=== PATIENT | female | born 1985 | race Caucasian/White ===

== ENCOUNTER 2017-11-19 09:57 | Emergency (ER) | payer MEDICAID, SELFPAY ==
[2017-11-19 10:12] VITALS: BP 118/80; PULSE 74; RESP 16; TEMP 36.7; O2SAT 100
--- NOTE | 2017-11-19 10:59 | DI.REPORT_ITS ---
SYMPTOM/DIAGNOSIS: PUNCHED REFRIGERATOR LEFT HAND: Comparison is made with 16 July 2017. No fracture or dislocation is seen. IMPRESSION: Negative left hand.
--- NOTE | 2017-11-19 11:00 | ED.GENADUL ---
Disposition Clinical Impression: Hand contusion Disposition: HOME Condition: Fair Instructions: Contusion in Adults (ED) Additional Instructions: Encourage rest, ice, elevation. Tylenol and/or ibuprofen as needed for discomfort. Keep Nolberto wrap on to help with discomfort and swelling. Stop punching inanimate objects. Monitor wounds for signs of infection including redness, warmth, drainage, fever/chills, increased pain. If these arise please seek care urgently once again. Please follow-up with primary care in 1-2 weeks if symptoms persist. Referrals: Smitha Bush NP [Primary Care Provider] - Medical Decision Making - Radiology Data Radiology results: report reviewed Radiology reviewed patient left hand x-rays. I advised no acute abnormality of the bones or joints, soft tissues are normal. - Medical Decision Making Patient presents today with chief complaint of left hand pain after striking a refrigerator ?10 yesterday. Patient has ecchymosis and swelling over the dorsal aspect of the left hand. Ecchymosis and pain is worse over the ulnar side of the hand. No deformity is noted. She has a superficial abrasion appears to be healing well no signs of infection in between the knuckles of the third and fourth digits. She has limited range of motion of her digits secondary to pain. Sensation is intact. Last tetanus was in 2012. Patient will be given Tylenol to help with discomfort will obtain radiographic images to evaluate for possible fracture. X-ray without significant abnormality. Discussed findings with the patient. Advised that she is left hand contusion. Advised her against striking inanimate objects. Patient will be fitted with an Nolberto wrap to help with swelling and discomfort. Encourage rest, ice, elevation. Advised Tylenol and/or ibuprofen as needed for discomfort. We discussed signs and symptoms of infection when to seek care urgently once again. Advise follow-up with primary care if pain persists over the next 1-2 weeks. We discussed activities that she should avoid that may increase her discomfort. All of her questions and concerns were addressed and she is in agreement with this plan. History of Present Illness - General Chief complaint: Orthopedic Stated complaint: LEFT HAND INJURY Time Seen by Provider: 11/19/17 10:59 Source: patient, family, RN notes reviewed Mode of arrival: ambulatory Limitations: no limitations - History of Present Illness Initial comments: Patient is a 32-year-old [id number] female presenting today with chief complaint of left hand pain. Patient reports that yesterday she became angry and punched a refrigerator ?2 with the affected hand. Since that time his had swelling, ecchymosis and severe pain. States took ibuprofen prior to arrival. Suffered superficial abrasions as well. States the pain radiates into the digits. No pain in the wrist. Denies other injury the time the incident. Patient has been seen by myself historically for very similar injury. States the pain is maximal over the fifth metacarpal. She denies any altered sensation. Last tetanus was in 2012. - Related Data Norelgestromin/Ethin.estradiol [Xulane Patch] 1 each TD 1 weekly. hb 11/07/16 Mupirocin [MUPIROCIN 2%] 22 gm TP DAILY #1 gm 09/18/17 Ibuprofen [Ibu-200] 400 mg PO PRN PRN 11/19/17 Allergies Allergy/AdvReac Type Severity Reaction Status Date / Time Penicillins Allergy Unknown Skin Rash Unverified 11/19/17 10:14 amoxicillin [Amoxicillin] Allergy Skin Rash Unverified 11/19/17 10:14 Iodinated Contrast- Oral and Allergy Hives Unverified 11/19/17 10:14 IV Dye benzonatate AdvReac Intermediate Nausea and Unverified 11/19/17 10:14 vomiting Review of Systems Constitutional: no symptoms reported. denies: chills, fever, malaise Respiratory: no symptoms reported Musculoskeletal: as per HPI Skin: as per HPI Neurological: as per HPI Past Medical History - Past Medical History Medical history: seizures Surgical history: no surgical history Psychiatric history: attention deficit - Social History Alcohol use: occasionally Drug use: none General Exam - General Limitations: no limitations General appearance: alert, in no apparent distress - Head Head exam: Present: atraumatic - Eye Eye exam: Present: normal apperance - Respiratory Respiratory exam: Absent: respiratory distress - Extremities Exam Extremities exam: Present: tenderness, normal capillary refill, joint swelling. Absent: normal inspection (Exam the patient's left upper extremity is significant for ecchymosis along the dorsal aspect of the hand. It extends from the third metacarpal over towards the lateral aspect of the hand encircling the fifth metacarpal. She superficial abrasions between the knuckles of the third and fourth digits. Ecchymosis does extend over the MCP joints of the third, fourth and fifth digits. Sensation is intact. Range of motion is very limited in the finger secondary to pain. She is full range of motion of the wrist with no palpation of the wrist. No deformity is palpated.), full ROM - Neurological Exam Neurological exam: Present: alert, normal gait. Absent: motor sensory deficit - Psychiatric Psychiatric exam: Present: normal affect, normal mood - Skin Skin exam: Absent: intact, normal color (As above) Course Vital Signs - 24 hr 11/19/17 10:12 Temperature 36.7 C Pulse 74 Respiratory 16 Rate Blood Pressure 118/80 Pulse Oximetry 100
[2017-11-19] MEDS: Acetaminophen 500 MG TAB 1000 MG PO (11:20)
--- NOTE | 2017-11-19 13:06 | DI.VRAD_ITS ---
EXAM: XR Left Hand Complete, 3 or more Views EXAM DATE/TIME: 11/19/2017 11:00 AM CLINICAL HISTORY: 32 years old, female; Pain; Hand; Left; Patient HX: Per PT: Punched refrigerator 2x TECHNIQUE: XR Left hand 3 or more views. COMPARISON: CR - LEFT HAND COMPLETE 2017-07-16 16:04 FINDINGS: Bones/joints: Normal. Soft tissues: Normal. IMPRESSION: No acute findings. Dictated and Authenticated by: Harpreet De Paz MD. Ordering:DALLIN MARINELLI MD
== END 2017-11-19 13:22 | disposition home or self-care (01) ==
LOC: ER 03-26 09:45
PROVIDERS: Emergency Provider Physician Assistant; PCP Nurse Practitioner Family
DX: S60.222A Contusion of left hand, initial encounter (principal); W22.09XA Striking against other stationary object, initial encounter
CPT/HCPCS: 99283; 73130; 99282

== ENCOUNTER 2018-03-26 09:48 | Outpatient (REF) | payer MEDICAID, SELFPAY ==
--- NOTE | 2018-03-26 09:15 | PAPFT_PTH ---
PATIENT: Awa Shrestha LOC: [facility] U#:[id number] AGE/SX: 32/F ROOM: RE03/26/[address]: MARIE Baig : 1985 BED: DIS: 03/26/2018 SPEC #: [id number] RECD: 03/26/18 18:17 STATUS: YOLANDA RELiz #: [id number] MARTIN: 03/26/18 09:[address]: Smitha Bush DEPT: [facility] Cytology RECD BY: Deisi Austin Tissues: 1 - CX/ENDOCX FOR PAP SMEARS Procedures: PAP THIN PREP/UVM Screening HPV DNA PROBE Comments: [id number] (CHLAMYDIA/GC)
[2018-03-27 13:16] LABS: Chlamydia Result Negative; GC Result Negative; Specimen Description SEE COMMENTS
== END 2018-03-26 10:08 ==
LOC: LBN 09:48
PROVIDERS: PCP Nurse Practitioner Family; Visit Provider Nurse Practitioner Family
DX: Z12.4 Encounter for screening for malignant neoplasm of cervix (principal); Z11.51 Encounter for screening for human papillomavirus (HPV); Z11.3 Encounter for screening for infections with a predominantly sexual mode of transmission
CPT/HCPCS: 87491; 87591; 88142; 87624

== ENCOUNTER 2018-04-04 09:36 | Emergency (ER) | payer MEDICAID, SELFPAY ==
[2018-04-04 09:45] VITALS: BP 133/87; PULSE 93; RESP 16; TEMP 36.7; O2SAT 99
--- NOTE | 2018-04-04 10:00 | W.ED.GENAD ---
Discharge Plan Disposition Patient Disposition: HOME Condition: Improving Discharge Details Chief Complaint: GenMedical Clinical Impression: Exudative pharyngitis Primary Care Provider: Smitha Bush ED Provider: Fabián Contreras Home Meds and New Rx's Prescriptions: New prednisone 20 mg tablet 20 mg PO DAILY 3 Days Qty: 3 RF: 0 azithromycin 250 mg tablet See Rx Instructions .ROUTE .COMPLEX Qty: 6 RF: 0 No Action Xulane 150-35 mcg/24 hr patch weekly 1 patch Transdermal As directed Qty: 3 RF: 4 Discharge Instructions Instructions: Pharyngitis (ED) Additional Instructions: Small, frequent sips of fluids. Tylenol and/or ibuprofen as needed for pain. May continue [id number] cough drops. Please take prednisone and azithromycin as prescribed beginning today. Return to the emergency department for any acute concerns Medical Decision Making 32-year-old female presents primarily complaining of sore throat over 2 days time with associated cough congestion. She is a smoker with a penicillin allergy. Vital signs are stable and her exam is consistent with an exudative pharyngitis. With her history we will treat with a course of azithromycin as well as 3 days of prednisone for anti-inflammatory properties. She understands return precautions to the ED and is stable for discharge. HPI General Mode of arrival: ambulatory. Date/Time Provider Initiated Documentation: 04/04/18 09:52. Limitations to Documentation: no limitations. Information obtained by: patient. History of Present Illness 32 year old F presents to the emergency department with the chief complaint of Sore throat and cough, fever, described as moderate, Quality is described as aching, and is localized to the mouth. Patient reports no radiation. Patient started experiencing this hour(s) and it has been constant. No relieving factors improve symptom(s), and other things that improve symptom(s), (Somewhat helped with cough drops) No exacerbating factors reported . Patient notes cough and fever/chills. Patient did receive the following treatments prior to arrival, other ([id number]) Related Data Home Medications Medication Instructions Recorded Confirmed norelgestromin 150 mcg-e.estradiol 1 patch TRANSDERMAL As directed #3 02/20/18 04/04/18 35 mcg/24 hr weekly transderm patch each azithromycin See Rx Instructions .ROUTE 04/04/18 .COMPLEX #6 tab prednisone 20 mg PO DAILY 3 Days #3 tab 04/04/18 Previous Rx's Medication Instructions Recorded norelgestromin 150 mcg-e.estradiol 1 patch TRANSDERMAL As directed #3 02/20/18 35 mcg/24 hr weekly transderm patch each azithromycin See Rx Instructions .ROUTE 04/04/18 .COMPLEX #6 tab prednisone 20 mg PO DAILY 3 Days #3 tab 04/04/18 Allergies Allergy/AdvReac Type Severity Reaction Status Date / Time Penicillins Allergy Unknown Skin Rash Unverified 03/26/18 09:00 amoxicillin [Amoxicillin] Allergy Skin Rash Unverified 03/26/18 09:00 Iodinated Contrast- Oral and Allergy Hives Unverified 03/26/18 09:00 IV Dye benzonatate AdvReac Intermediate Nausea and Unverified 03/26/18 09:00 vomiting General Stated Complaint: GenMedical LAYNE: 4 Review of Systems Review of Systems 6 systems reviewed and otherwise negative ON LICENSE OF [facility] Medical History Attention deficit hyperactivity disorder, combined type (Inactive 06/01/12) Febrile seizures (Inactive) Surgical History Teeth extractions Family History Mother Diabetes Essential hypertension Father Emphysema lung Sister Epilepsy Sister No problems noted. Sister No problems noted. Sister No problems noted. Brother No problems noted. Brother No problems noted. Grandfather No problems noted. Grandfather No problems noted. Grandmother No problems noted. Grandmother No problems noted. Daughter No problems noted. Social History Smoking/Tobacco Use Status: Current every day History History 2 Para 1 Hx # Term Pregnancies Multiple births Hx # Pregnancies Ectopic pregnancies AB induced 1 Hx Number of Living Children 1 AB spontaneous Exam Narrative Exam Narrative: GEN: awake, alert, oriented 3. Pleasant, well groomed, interactive. HEAD: Normocephalic, atraumatic ENT: Mucous membranes moist, oropharynx with beefy red tonsillar erythema and overlying white exudate, no asymmetry and the uvula is midline, External ear exam unremarkable. Tympanic membranes silva/clear bilaterally. EYES: PERRL, EOMI NECK: Full ROM, no MARY, no menigismus CHEST/RESP: Nontender, clear to auscultation bilateral, no wheeze/rhonchi/rales. Cough noted CARDIOVASCULAR: RRR, no murmur, rub alex. 2+ Rad pulse bilateral ABDOMEN: Soft, nontender, no mass. +Bowel sounds EXT: Full ROM, no edema, no rash Neuro: Grossly normal neurologic exam, conversant, interactive. Psych: Speech fluent, thoughts congruent, affect normal Course Vital Signs Temperature 36.7 C 04/04/18 09:45 Pulse 93 H 04/04/18 09:45 Respiratory Rate 16 04/04/18 09:45 Blood Pressure 133/87 04/04/18 09:45 Pulse Oximetry 99 04/04/18 09:45 Temperature 36.7 C 04/04/18 09:45 Temperature Source Temporal Artery Scan 04/04/18 09:45 Pulse 93 H 04/04/18 09:45 Respiratory Rate 16 04/04/18 09:45 Respiratory Effort 04/04/18 09:48 Blood Pressure 133/87 04/04/18 09:45 Blood Pressure Position Sitting 04/04/18 09:45 Pulse Oximetry 99 04/04/18 09:45 Oxygen Delivery Method Room Air 04/04/18 09:45 Oxygen Flow Rate 0 04/04/18 09:45 Pain Level 9 04/04/18 09:45
--- NOTE | 2018-04-04 10:03 | ED.GENADUL_ITS ---
Discharge Plan Disposition Patient Disposition: HOME Condition: Improving Discharge Details Chief Complaint: GenMedical Clinical Impression: Exudative pharyngitis Primary Care Provider: Smitha Bush ED Provider: Fabián Contreras Home Meds and New Rx's Prescriptions: New prednisone 20 mg tablet 20 mg PO DAILY 3 Days Qty: 3 RF: 0 azithromycin 250 mg tablet See Rx Instructions .ROUTE .COMPLEX Qty: 6 RF: 0 No Action Xulane 150-35 mcg/24 hr patch weekly 1 patch Transdermal As directed Qty: 3 RF: 4 Discharge Instructions Instructions: Pharyngitis (ED) Additional Instructions: Small, frequent sips of fluids. Tylenol and/or ibuprofen as needed for pain. May continue vhef-ydr-sajmyvy cough drops. Please take prednisone and azithromycin as prescribed beginning today. Return to the emergency department for any acute concerns Medical Decision Making 32-year-old female presents primarily complaining of sore throat over 2 days time with associated cough congestion. She is a smoker with a penicillin allergy. Vital signs are stable and her exam is consistent with an exudative pharyngitis. With her history we will treat with a course of azithromycin as well as 3 days of prednisone for anti-inflammatory properties. She understands return precautions to the ED and is stable for discharge. HPI General Mode of arrival: ambulatory . Date/Time Provider Initiated Documentation: 04/04/18 09:52 . Limitations to Documentation: no limitations . Information obtained by: patient . History of Present Illness 32 year old F presents to the emergency department with the chief complaint of Sore throat and cough, fever, described as moderate, Quality is described as aching, and is localized to the mouth. Patient reports no radiation. Patient started experiencing this hour(s) and it has been constant. No relieving factors improve symptom(s), and other things that improve symptom(s), (Somewhat helped with cough drops) No exacerbating factors reported . Patient notes cough and fever/chills. Patient did receive the following treatments prior to arrival, other ([id number]-geh-ditqjsz) Related Data Home Medications Medication Instructions Recorded Confirmed norelgestromin 150 mcg-e.estradiol 1 patch TRANSDERMAL As directed #3 02/20/18 04/04/18 35 mcg/24 hr weekly transderm patch each azithromycin See Rx Instructions .ROUTE 04/04/18 .COMPLEX #6 tab prednisone 20 mg PO DAILY 3 Days #3 tab 04/04/18 Previous Rx's Medication Instructions Recorded norelgestromin 150 mcg-e.estradiol 1 patch TRANSDERMAL As directed #3 02/20/18 35 mcg/24 hr weekly transderm patch each azithromycin See Rx Instructions .ROUTE 04/04/18 .COMPLEX #6 tab prednisone 20 mg PO DAILY 3 Days #3 tab 04/04/18 Allergies Allergy/AdvReac Type Severity Reaction Status Date / Time Penicillins Allergy Unknown Skin Rash Unverified 03/26/18 09:00 amoxicillin [Amoxicillin] Allergy Skin Rash Unverified 03/26/18 09:00 Iodinated Contrast- Oral and Allergy Hives Unverified 03/26/18 09:00 IV Dye benzonatate AdvReac Intermediate Nausea and Unverified 03/26/18 09:00 vomiting General Stated Complaint: GenMedical LAYNE: 4 Review of Systems Review of Systems 6 systems reviewed and otherwise negative [facility] Medical History Attention deficit hyperactivity disorder, combined type (Inactive 06/01/12) Febrile seizures (Inactive) Surgical History Teeth extractions Family History Mother Diabetes Essential hypertension Father Emphysema lung Sister Epilepsy Sister No problems noted. Sister No problems noted. Sister No problems noted. Brother No problems noted. Brother No problems noted. Grandfather No problems noted. Grandfather No problems noted. Grandmother No problems noted. Grandmother No problems noted. Daughter No problems noted. Social History Smoking/Tobacco Use Status: Current every day History History 2 Para 1 Hx # Term Pregnancies Multiple births Hx # Pregnancies Ectopic pregnancies AB induced 1 Hx Number of Living Children 1 AB spontaneous Exam Narrative Exam Narrative: GEN: awake, alert, oriented 3. Pleasant, well groomed, interactive. HEAD: Normocephalic, atraumatic ENT: Mucous membranes moist, oropharynx with beefy red tonsillar erythema and overlying white exudate, no asymmetry and the uvula is midline, External ear exam unremarkable. Tympanic membranes silva/clear bilaterally. EYES: PERRL, EOMI NECK: Full ROM, no MARY, no menigismus CHEST/RESP: Nontender, clear to auscultation bilateral, no wheeze/rhonchi/rales. Cough noted CARDIOVASCULAR: RRR, no murmur, rub alex. 2+ Rad pulse bilateral ABDOMEN: Soft, nontender, no mass. +Bowel sounds EXT: Full ROM, no edema, no rash Neuro: Grossly normal neurologic exam, conversant, interactive. Psych: Speech fluent, thoughts congruent, affect normal Course Vital Signs Temperature 36.7 C 04/04/18 09:45 Pulse 93 H 04/04/18 09:45 Respiratory Rate 16 04/04/18 09:45 Blood Pressure 133/87 04/04/18 09:45 Pulse Oximetry 99 04/04/18 09:45 Temperature 36.7 C 04/04/18 09:45 Temperature Source Temporal Artery Scan 04/04/18 09:45 Pulse 93 H 04/04/18 09:45 Respiratory Rate 16 04/04/18 09:45 Respiratory Effort 04/04/18 09:48 Blood Pressure 133/87 04/04/18 09:45 Blood Pressure Position Sitting 04/04/18 09:45 Pulse Oximetry 99 04/04/18 09:45 Oxygen Delivery Method Room Air 04/04/18 09:45 Oxygen Flow Rate 0 04/04/18 09:45 Pain Level 9 04/04/18 09:45
== END 2018-04-04 10:25 | disposition home or self-care (01) ==
LOC: ER 11:09
PROVIDERS: Emergency Provider Emergency Medicine; PCP Nurse Practitioner Family
DX: J02.9 Acute pharyngitis, unspecified (principal); F17.210 Nicotine dependence, cigarettes, uncomplicated; Z88.0 Allergy status to penicillin
CPT/HCPCS: 87880; 99283; 87081

== ENCOUNTER 2018-05-05 15:09 | Emergency (ER) | payer MEDICAID, SELFPAY ==
[2018-05-05 15:50] VITALS: BP 118/84; PULSE 92; RESP 17; TEMP 36.6; O2SAT 96
--- NOTE | 2018-05-05 17:39 | ED.GENADUL_ITS ---
Discharge Plan Disposition Patient Disposition: HOME Discharge Details Chief Complaint: RespSymp Clinical Impression: Influenza-like illness Reason For Visit: cough Primary Care Provider: Smitha Bush ED Provider: Jose Epstein Home Meds and New Rx's Prescriptions: New albuterol sulfate 90 mcg/actuation HFA aerosol inhaler 1 puff IH Q4H PRN (Reason: shortness of breath or wheezing) Qty: 8 RF: 0 Continued Xulane 150-35 mcg/24 hr patch weekly 1 patch Transdermal As directed Qty: 3 RF: 4 aspirin 325 mg Tablet 1 tab PO PRN PRNRF: 0 No Action prednisone 20 mg tablet 40 mg PO DAILY 5 Days Qty: 10 RF: 0 Discharge Instructions Instructions: Influenza (ED) Additional Instructions: Please drink plenty of fluids to stay hydrated. Please allow for plenty of rest. Please contact your primary care physician to arrange follow-up. Return to the ER for any worsening or new concerning symptoms. Stand Alone Forms: Work Release Referrals: Smitha Bush NP [Primary Care Provider] - Discharge Data Discharge Date/Time-TO BE ENTERED AT DEPARTURE: 05/05/18 18:05 Medical Decision Making 32-year-old female smoker here with influenza-like illness for the past 6 days. Father and mother sick with same. Father was diagnosed with flu after positive testing. Patient notes cough and body aches. She is saturating well no respiratory distress. Lungs are currently clear but she does note that she has had intermittent wheeze. Patient is outside therapeutic window for Tamiflu. No signs of focal bacterial infection. Plan to prescribe albuterol inhaler to be used for wheeze. Patient was advised to follow-up with her primary care physician and to return should have any worsening or new concerning symptoms. Work note was provided. Usual customary discharge instructions provided. HPI General Mode of arrival: ambulatory . Date/Time Provider Initiated Documentation: 05/05/18 17:16 . Limitations to Documentation: no limitations . Information obtained by: patient . HPI Narrative: 32-year-old female smoker here with influenza-like illness for the past 6 days. Cough, congestion, body aches, feverish. Symptoms moderate. No modifiers. Father and mother sick with same. Father was diagnosed with flu after positive testing. No assoc SOB. Some intermittent wheeze. Related Data Home Medications Medication Instructions Recorded Confirmed norelgestromin 150 mcg-e.estradiol 1 patch TRANSDERMAL As directed #3 02/20/18 05/10/18 35 mcg/24 hr weekly transderm patch each albuterol sulfate 1 puff IH Q4H PRN #8 gm 05/05/18 05/10/18 aspirin 1 tab PO PRN PRN 05/05/18 05/10/18 prednisone 20 mg tablet 40 mg PO DAILY 5 Days #10 tab 05/16/18 05/16/18 Previous Rx's Medication Instructions Recorded norelgestromin 150 mcg-e.estradiol 1 patch TRANSDERMAL As directed #3 02/20/18 35 mcg/24 hr weekly transderm patch each albuterol sulfate 1 puff IH Q4H PRN #8 gm 05/05/18 prednisone 20 mg tablet 40 mg PO DAILY 5 Days #10 tab 05/16/18 Allergies Allergy/AdvReac Type Severity Reaction Status Date / Time Penicillins Allergy Unknown Skin Rash Unverified 05/16/18 09:29 amoxicillin [Amoxicillin] Allergy Skin Rash Unverified 05/16/18 09:29 Iodinated Contrast- Oral and Allergy Hives Unverified 05/16/18 09:29 IV Dye benzonatate AdvReac Intermediate Nausea and Unverified 05/16/18 09:29 vomiting General Stated Complaint: RespSymp LAYNE: 4 Review of Systems Review of Systems All systems reviewed & are unremarkable except as noted in HPI and below PFSH Social History Smoking and Tabacco status: Current every day History History 2 Para 1 Hx # Term Pregnancies Multiple births Hx # Pregnancies Ectopic pregnancies AB induced 1 Hx Number of Living Children 1 AB spontaneous Exam Const General: cooperative and no acute distress HENMT Head: normocephalic and atraumatic Mouth: moist mucous membranes Eyes Conjunctivae: normal conjunctivae Sclera: normal sclerae EOM: EOM intact bilaterally Neck Neck: trachea midline and supple Resp Effort & Inspection: normal respiratory effort and no respiratory distress Auscultation: no rales, no rhonchi and wheezes lower bilaterally (subtle) Cardio Jugular venous pressure: no JVD Rate: regular rate and not tachycardic Rhythm: regular rhythm GI Palpation: soft, not firm, no guarding, no masses, not rigid and nontender Skin General skin exam: no rashes or lesions noted Neuro General: alert, awake, oriented x3 and tone normal Extrem General: no edema Psych Appearance: grossly normal Mental Status: mental status grossly normal Speech and Movement: speech and movement normal Course Vital Signs Temperature 36.6 C 05/05/18 15:50 Pulse 92 H 05/05/18 15:50 Respiratory Rate 17 05/05/18 15:50 Blood Pressure 118/84 05/05/18 15:50 Pulse Oximetry 96 05/05/18 15:50 Temperature 36.6 C 05/05/18 15:50 Temperature Source Temporal Artery Scan 05/05/18 15:50 Pulse 92 H 05/05/18 15:50 Respiratory Rate 17 05/05/18 15:50 Respiratory Effort 05/05/18 15:53 Blood Pressure 118/84 05/05/18 15:50 Blood Pressure Position Sitting 05/05/18 15:50 Pulse Oximetry 96 05/05/18 15:50 Oxygen Delivery Method Room Air 05/05/18 15:50 Oxygen Flow Rate 0 05/05/18 15:50
== END 2018-05-05 18:05 | disposition home or self-care (01) ==
PROVIDERS: Emergency Provider Student in an Organized Health Care Education/Training Program; PCP Nurse Practitioner Family
DX: R05 Cough (principal); M79.10 Myalgia, unspecified site; J11.1 Influenza due to unidentified influenza virus with other respiratory manifestations; F17.210 Nicotine dependence, cigarettes, uncomplicated
CPT/HCPCS: 99283

== ENCOUNTER 2018-08-13 21:01 | Emergency (ER) | payer MEDICAID, SELFPAY ==
[2018-08-13] VITALS (15 sets, daily range): BP systolic 122–137; BP diastolic 81–92; PULSE 89–106; RESP 13–26; TEMP 37; O2SAT 96–100
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
[2018-08-13] MEDS: Normal Saline Flush 10 ML SYR IVP (21:05)
[2018-08-13] MEDS: Normal Saline 1,000 ML 1000 ML IV (21:28)
[2018-08-13 21:29] LABS: Abs Immature Grans 0.01 k/cumm (0.0-0.09); Absolute Basophil Count 0.04 k/cumm (0.0-0.2); Absolute Eosinophil Count 0.13 k/cumm (0.0-0.7); Absolute Lymphocyte Count 3.19 k/cumm (1.2-3.4); Absolute Monocyte Count 0.52 k/cumm (0.11-0.7); Absolute Neutrophil Count 3.24 k/cumm (1.2-6.7); Basophils % 0.6; Eosinophils % 1.8; HCT 47.4 % (36.0-46.0); Immature Grans % 0.1; Lymphocytes % 44.7; Mean Corp. HGB Concentration 33.8 g/dL (32.0-36.0); Mean Corpuscular Hemoglobin 31.4 pg (27.0-33.0); Mean Corpuscular Volume 92.9 fL (80-95); Mean Platelet Volume 9.5 fL (8.0-11.0); Monocytes % 7.3; Neutrophils % 45.5; Platelet Count 272 x1000/uL (130-400); RBC Distribution Width 13.3 % (11.7-14.6); White Blood Cell Count 7.13 k/cumm (4.4-10.8)
--- NOTE | 2018-08-13 21:33 | NUR.NOTE ---
Nursing Note: Pt laying in supine position stating she has seizures if she goes into the sun or has a fever. She does not have a neurologist, PCP is [facility]. Pt then closed eyes and began a rapid shallow breathing at about 40 RR/min x 2 mins and would not respond to name. O2 98-99% during the episode, no change in pulse or oxygen level, no incontinence of bowel or bladder. Pt then opened eyes and asked where she was and where her Mama was. Pt was re-oriented to place and time, resting comfortably at this time. updated, fluid bolus hanging, will CTM.
[2018-08-13 21:40] LABS: ALT 21 U/L (12-78); AST 14 U/L (15-37); Albumin 4.1 g/dL (3.4-5.0); Alkaline Phosphatase 92 U/L (46-116); Anion Gap 10.7 mmol/L (3-11); BUN 5 mg/dL (7-18); Bilirubin, Total 0.2 mg/dL (0.2-1.0); CO2 25.3 mmol/L (21.0-32.0); CREATININE 0.69 mg/dL (0.55-1.02); Calcium 8.5 mg/dL (8.5-10.1); Chloride 107 mmol/L (98-107); ETHANOL BLOOD 184.4 mg/dL (<3); Glucose 94 mg/dL (70-100); Sodium 143 mmol/L (136-145); Total Protein 8.2 g/dL (6.4-8.2)
[2018-08-13 21:49] LABS: *AMPHETAMINES SCREEN URINE Negative (Negative); *BARBITURATES SCREEN URINE Negative (Negative); *BENZODIAZEPINES SCREEN URINE Negative (Negative); Cannabinoids THC POSITIVE (Negative); Cocaine Screen,Urine Negative (Negative); METHADONE URINE SCREEN Negative (Negative); OPIATES URINE SCREEN Negative (Negative)
[2018-08-13 21:51] LABS: Tricyclic Antidepressants Negative (Negative)
[2018-08-13 21:54] LABS: Salicylate 7.8 mg/dL (2.8-20.0)
[2018-08-13 21:55] LABS: Acetaminophen < 2 ug/mL (10-30)
[2018-08-13] MEDS: Ibuprofen 800 MG TAB PO (22:39)
== END 2018-08-13 23:00 | disposition home or self-care (01) ==
PROVIDERS: Emergency Provider Student in an Organized Health Care Education/Training Program; PCP Nurse Practitioner Family
DX: F10.120 Alcohol abuse with intoxication, uncomplicated (principal)
CPT/HCPCS: 36415; 80053; 80307; 96360; 99285; 80320; 80329; 85025; 99283

== ENCOUNTER 2018-10-10 08:03 | Emergency (ER) | payer MEDICAID, SELFPAY ==
[2018-10-10 08:09] VITALS: BP 134/85; PULSE 87; RESP 16; TEMP 36.8; O2SAT 98
--- NOTE | 2018-10-10 08:13 | DI.RAD_ITS ---
SYMPTOM/DIAGNOSIS: PAIN OVER AC JOINT RIGHT SHOULDER: No bony or joint abnormality is demonstrated. There is no evidence of an AC separation.
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
[2018-10-10] MEDS: Lidocaine 5% Patch 1 PATCH TP (08:25)
== END 2018-10-10 08:52 | disposition home or self-care (01) ==
PROVIDERS: Emergency Provider Student in an Organized Health Care Education/Training Program; PCP Nurse Practitioner Family
DX: S40.911A Unspecified superficial injury of right shoulder, initial encounter (principal); W50.3XXA Accidental bite by another person, initial encounter
CPT/HCPCS: 99283; 73030; 99282; L3650

== ENCOUNTER 2018-10-19 08:03 | Emergency (ER) | payer MEDICAID, SELFPAY ==
[2018-10-19 08:06] VITALS: BP 137/88; PULSE 86; RESP 18; TEMP 36.9
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
[2018-10-19] MEDS: Ketorolac 30 MG/ML VIAL IM (08:35)
== END 2018-10-19 08:51 | disposition home or self-care (01) ==
LOC: ER 08:54
PROVIDERS: Emergency Provider Nurse Practitioner Family; PCP Nurse Practitioner Family
DX: M25.511 Pain in right shoulder (principal)
CPT/HCPCS: 96372; 99284; J1885

== ENCOUNTER 2019-01-15 01:41 | Outpatient (CLI) | payer MEDICAID, SELFPAY ==
--- NOTE | 2019-01-15 10:25 | DI.MRI_ITS ---
EXAM: MR UPPER JOINT RT WO CLINICAL HISTORY: R shoulder pain and weakness M25.511 PAIN RT SHOULDER. TECHNIQUE: Multiplanar multisequence MRI was performed. COMPARISON: XR shoulder RT complete 2+V from 10/10/2018 FINDINGS: There is no significant spurring at the AC joint. There is minimal spurring at the tip of the acromi on. There is no joint fluid or fluid in the subacromial subdeltoid bursa. The supraspinatus, infras pinatus, subscapularis, teres minor and biceps tendons appear intact. No labral defects seen. The m arrow signal appears normal. IMPRESSION: No evidence of rotator cuff tear. Minimal degenerative changes.
== END 2019-01-15 02:01 ==
PROVIDERS: PCP Nurse Practitioner Family; Visit Provider Student in an Organized Health Care Education/Training Program
DX: M25.511 Pain in right shoulder (principal); M19.011 Primary osteoarthritis, right shoulder
CPT/HCPCS: 73221

== ENCOUNTER 2020-06-18 10:56 | Emergency (ER) | payer MEDICAID, SELFPAY ==
--- NOTE | 2020-06-18 11:01 | ED.GENADUL_ITS ---
Discharge Plan Disposition Patient Disposition: HOME Condition: Stable Discharge Details Clinical Impression: Contusion of right foot, Contusion of right ankle Primary Care Provider: Smitha Bush ED Provider: Asya Buchanan Home Meds and New Rx's Prescriptions: Continued ibuprofen 600 mg tablet 600 mg PO Q8H PRN (Reason: pain) Qty: 60 RF: 0 acetaminophen 500 mg capsule 1,000 mg PO Q8H PRN PRN (Reason: pain) Qty: 60 RF: 0 Xulane 150-35 mcg/24 hr patch weekly 1 patch Transdermal QWEEK Qty: 9 RF: 4 nicotine 14 mg/24 hr patch 24 hour 1 patch TD DAILY Qty: 90 RF: 0 nicotine 7 mg/24 hr patch 24 hour 1 patch TD DAILY Qty: 14 RF: 6 cyclobenzaprine 5 mg tablet 5 mg PO TID PRN (Reason: muscle spasm) Qty: 15 RF: 0 albuterol sulfate 90 mcg/actuation HFA aerosol inhaler 1 puff IH Q4H PRN (Reason: shortness of breath or wheezing) Qty: 8 RF: 0 Excedrin Migraine 250-250-65 mg Tablet 1 tab PO Q6H PRNRF: 0 Discharge Instructions Instructions: Contusion in Adults (ED), Foot Contusion (ED) Additional Instructions: Rest, ice, and elevate the affected area as much as possible. Alternate tylenol and motrin as needed and directed for pain. Follow-up with your primary care doctor in 1 week as needed. Return to the emergency department with any worsening or new concerning sympto ms. Stand Alone Forms: Work Release Discharge Data Discharge Physician: Asya Buchanan Medical Decision Making 34-year-old female presents with right ankle and foot pain after falling down a few steps at home last night twisting her right ankle. She has a contusion to her right dorsal lateral foot just inferior to her right lateral malleolus. There is no deformity. She is neurovascularly intact. Patient referred for x-rays which were negative. She denied chance of . Patient declined ankle splint or lace up. Nolberto wrap applied. Advised on the importance of RICE. Advised to follow up with the primary care doctor for re-evaluation. Usual and customary return precautions given prior to discharge. Medical Records Medical records reviewed: Yes I reviewed the patient's medical records. Imaging Data Radiologic Study: Radiologist's impression: XR ANKLE RT COMPLETE and XR foot RT complete CLINICAL HISTORY: s/p fall, r/o acute fx. TECHNIQUE: 2D digital imaging was performed. COMPARISON: CR XR FOOT RT COMPLETE from 06/18/2020 FINDINGS: BONES: No acute fracture is present. No bony destructive lesion is seen. JOINTS: The ankle mortise is normally aligned. SOFT TISSUE: Normal. IMPRESSION: Unremarkable radiographs of the right foot and ankle. HPI General Mode of arrival: ambulatory . Date/Time Provider Initiated Documentation: 06/18/20 10:56 . Limitations to Documentation: no limitations . Information obtained by: patient . HPI Narrative: Patient is a 34-year-old female presents to the ED with a complaint of right foot and ankle pain after fall down a few steps at home twisting her right ankle last night. Patient states he slipped down a few steps and twisted her right ankle at the bottom. Now she is having pain in her right lateral ankle and right foot. She states she has been able to ambulate but with pain and is limping. She states she also hit her right hip but denies any pain in this area. She denies any other injuries. Related Data Home Medications Medication Instructions Recorded Confirmed albuterol sulfate 1 puff IH Q4H PRN #8 gm 05/05/18 11/25/19 Excedrin Migraine 1 tab PO Q6H PRN 08/13/18 11/25/19 acetaminophen 500 mg capsule 1,000 mg PO Q8H PRN PRN #60 cap 12/31/18 11/25/19 ibuprofen 600 mg tablet 600 mg PO Q8H PRN #60 tab 12/31/18 11/25/19 cyclobenzaprine 5 mg tablet 5 mg PO TID PRN #15 tab 01/14/19 11/25/19 nicotine 14 mg/24 hr daily 1 patch TD DAILY #90 each 11/25/19 11/25/19 transdermal patch nicotine 7 mg/24 hr daily 1 patch TD DAILY #14 each 11/25/19 11/25/19 transdermal patch norelgestromin 150 mcg-e.estradiol 1 patch TRANSDERMAL QWEEK #9 each 11/25/19 11/25/19 35 mcg/24 hr weekly transderm patch Previous Rx's Medication Instructions Recorded albuterol sulfate 1 puff IH Q4H PRN #8 gm 05/05/18 acetaminophen 500 mg capsule 1,000 mg PO Q8H PRN PRN #60 cap 12/31/18 ibuprofen 600 mg tablet 600 mg PO Q8H PRN #60 tab 12/31/18 cyclobenzaprine 5 mg tablet 5 mg PO TID PRN #15 tab 01/14/19 nicotine 14 mg/24 hr daily 1 patch TD DAILY #90 each 11/25/19 transdermal patch nicotine 7 mg/24 hr daily 1 patch TD DAILY #14 each 11/25/19 transdermal patch norelgestromin 150 mcg-e.estradiol 1 patch TRANSDERMAL QWEEK #9 each 11/25/19 35 mcg/24 hr weekly transderm patch Allergies Allergy/AdvReac Type Severity Reaction Status Date / Time Penicillins Allergy Unknown Skin Rash Unverified 11/25/19 13:53 amoxicillin [Amoxicillin] Allergy Skin Rash Unverified 11/25/19 13:53 Iodinated Contrast Media Allergy Hives Unverified 11/25/19 13:53 [Iodinated Contrast- Oral and IV Dye] benzonatate AdvReac Intermediate Nausea and Unverified 11/25/19 13:53 vomiting General LAYNE: 4 Review of Systems All systems reviewed & are unremarkable except as noted in HPI and below PFSH Medical History (Updated 06/18/20 @ 12:07 by Asya Buchanan DO) Attention deficit hyperactivity disorder, combined type Cigarette smoker Contraceptive surveillance Febrile seizures Surgical History No significant past surgical history Family History Mother Diabetes Hypertension Depression Father Emphysema lung Sister Epilepsy Asthma Depression Hypertension Sister No problems noted. Sister No problems noted. Sister No problems noted. Brother No problems noted. Brother No problems noted. Daughter No problems noted. Maternal Grandfather No problems noted. Maternal Grandmother No problems noted. Paternal Grandfather No problems noted. Paternal Grandmother No problems noted. Social History (Updated 06/18/20 @ 11:06 by Asya Buchanan DO) Smoking/Tobacco Use Status: Current every day Tobacco: How many years used: 16 Quit status: has quit before Smoking risk assessment performed?: Yes Alcohol Intake: current Alcohol Intake frequency: a few times a week Alcohol type: beer Drug use: Never Substance use type: does not use Current gender identity: female Do you feel safe at home: Yes Do you feel safe in your relationship?: Yes History History 2 Para 1 Hx # Term Pregnancies Multiple births Hx # Pregnancies Ectopic pregnancies AB induced 1 Hx Number of Living Children 1 AB spontaneous Exam Const General: cooperative, healthy appearing and no acute distress HENMT Head: normal to inspection Mouth: oral mucosae normal Eyes General: appearance normal, both eyes and all related structures Neck Neck: normal visual inspection Resp Effort & Inspection: normal respiratory effort and able to speak in complete sentences Cardio Rate: regular rate Skin General skin exam: no rashes or lesions noted Neuro General: patient alert, patient awake and patient oriented x3 Motor: muscle tone normal throughout Extrem Ankle/foot/toe images: 1. 2 x 2 centimeter area of tenderness, mild edema and ecchymosis. Other: Tenderness to palpation to right inferior and anterior lateral malleolus. No tenderness to palpation of medial malleolus or right fifth metatarsal. Right DP/PT pulses intact. No deformity. Psych Appearance: grossly normal Affect: normal affect
[2020-06-18 11:07] VITALS: BP 138/84; PULSE 88; RESP 14; TEMP 37; O2SAT 100
--- NOTE | 2020-06-18 11:15 | DI.RAD_ITS ---
EXAM: XR ANKLE RT COMPLETE and XR foot RT complete CLINICAL HISTORY: s/p fall, r/o acute fx. TECHNIQUE: 2D digital imaging was performed. COMPARISON: CR XR FOOT RT COMPLETE from 06/18/2020 FINDINGS: BONES: No acute fracture is present. No bony destructive lesion is seen. JOINTS: The ankle mortise is normally aligned. SOFT TISSUE: Normal. IMPRESSION: Unremarkable radiographs of the right foot and ankle. DATA REPOSITORY: RADIATION DOSE DELIVERED:
== END 2020-06-18 12:30 | disposition home or self-care (01) ==
PROVIDERS: Emergency Provider Physician Assistant; PCP Nurse Practitioner Family
DX: S90.31XA Contusion of right foot, initial encounter (principal); S90.01XA Contusion of right ankle, initial encounter; W10.8XXA Fall (on) (from) other stairs and steps, initial encounter; X50.9XXA Other and unspecified overexertion or strenuous movements or postures, initial encounter
CPT/HCPCS: 99284; 73610; 73630; 99283

== ENCOUNTER 2020-07-04 21:33 | Observation (INO) | payer MEDICAID, SELFPAY ==
[2020-07-04] VITALS (65 sets, daily range): BP systolic 109–139; BP diastolic 66–94; PULSE 80–120; RESP 24; O2SAT 95–100
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
[2020-07-04 22:08] LABS: Abs Immature Grans 0.05 10^3/uL (0.0-0.06); Absolute Basophil Count 0.06 10^3/uL (0.0-0.2); Absolute Eosinophil Count 0.24 10^3/uL (0.0-0.7); Absolute Lymphocyte Count 3.39 10^3/uL (1.2-3.4); Absolute Monocyte Count 0.86 10^3/uL (0.1-0.8); Absolute Neutrophil Count 6.23 10^3/uL (1.2-6.7); Basophils % 0.6; Eosinophils % 2.2; HCT 40.8 % (36.0-46.0); HGB 13.9 g/dL (11.2-15.7); Immature Grans % 0.5; Lymphocytes % 31.3; MCH 31.9 pg (27.0-33.0); MCHC 34.1 % (32.0-36.0); MCV 93.6 fL (80-95); MPV 8.8 fL (8.0-11.0); Monocytes % 7.9; Neutrophils % 57.5; Nucleated RBC 0 %; Platelet Count 258 10^3/uL (130-400); RBC 4.36 10^6/uL (3.93-5.22); RDW 12.8 % (11.7-14.6); RDW-SD 44.1 fL; WBC 10.83 10^3/uL (4.4-10.8)
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
[2020-07-04] MEDS: Lidocaine/Epinephri/Tetracaine Topical Gel 3 ML TP (22:20)
--- NOTE | 2020-07-04 22:20 | NUR.NOTE ---
Nursing Note: Yessy [phone] Mom
[2020-07-04 22:21] LABS: ALT 19 U/L (14-59); AST 17 U/L (15-37); Albumin 3.6 g/dL (3.4-5.0); Alkaline Phosphatase 88 U/L (46-116); Anion Gap 10.9 mmol/L (3-11); BUN 7 mg/dL (7-18); Bilirubin, Total 0.4 mg/dL (0.2-1.0); CO2 25.1 mmol/L (21.0-32.0); CREATININE 0.8 mg/dL (0.55-1.02); Chloride 98 mmol/L (98-107); ETHANOL BLOOD 219.6 mg/dL (<3); Glucose 107 mg/dL (74-106); Potassium 3.4 mmol/L (3.5-5.1); Sodium 134 mmol/L (136-145); Total Protein 7.3 g/dL (6.4-8.2)
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
--- NOTE | 2020-07-04 23:09 | DI.VRAD_ITS ---
PROCEDURE INFORMATION: Exam: XR Right Hand Exam date and time: 07/04/2020 10:34 PM Age: 34 years old Clinical indication: Injury or trauma; Fall; Blunt trauma (contusions or hematomas); Hand; Right; Additional info: Rule out fracture TECHNIQUE: Imaging protocol: XR Right hand. Views: 3 or more views. COMPARISON: No relevant prior studies available. FINDINGS: Bones/joints: No fractures or dislocations identified. Soft tissues: Soft tissue injury/laceration over the medial aspect of the hand. IMPRESSION: No fractures or dislocations. Soft tissue injury over the medial aspect of the right hand. Dictated and Authenticated by: Clint Hutson MD. Ordering:DINA Guerrero MD
--- NOTE | 2020-07-04 23:10 | ED.GENADUL_ITS ---
Discharge Plan Discharge Details Chief Complaint: Trauma Admit Date/Time: 07/05/20 00:17 Admit Provider: Kenzie Dinero Attending Provider: Kenzie Dinero Primary Care Provider: Smitha Bush ED Provider: Cesar Gorman Medical Decision Making 34-year-old female with a past medical history of ADHD, chronic pain in her right ankle secondary to old sprain, previous febrile seizure/undifferentiated seizure in the distant past, who presents today for evaluation of fall. This evening the patient was drinking alcohol, she went downstairs and on the third step from the bottom she stepped on an unsecured step which caused her to slip and fall and hit her head and buttocks. She states that she does recall the event. Upon EMS arrival patient was alert and oriented but mildly intoxicated. No focal deficits per EMS. Notable bleeding coming from her scalp, small laceration to her right hand, and pain in her buttock. She is brought to the ER for further evaluation. Currently aside for pain in the buttock and the scalp the patient has no other complaints. She states that her ankle hurts like it normally does but no new pain. She states that it is unchanged otherwise. She is not on blood thinners. She refused c- collar on EMS arrival, denies neck pain, and continues to refuse c-collar here. She is notably anxious. No other complaints or additional historical components. Physical exam demonstrates an intoxicated female, initial assessment demonstrated notable laceration to the scalp, however the patient has recently dyed her hair red there was a significant amount of clotted matted red bloody hair making exam challenging. However there was a notable brisk amount of bleeding coming from the superior scalp on initial assessment. Pvoylm-pc-zctay stitch and second simple interrupted stitch were placed and this seemed to stop all the initial notable bleeding. No midline cervical spine tenderness. Patient does have tenderness in her sacrum, concerning for fracture. No clear focal neurologic deficits however she does appear mildly intoxicated. She also has a small laceration to her right hand. The patient's right ankle is chronically tender, and she denies any change in pain. Exam of the right ankle shows no significant unilateral swelling or redness. Due to the mechanism and findings we will get a CT scan of the head, x-ray of the hand, and CT scan of the sacrum and pelvis. Will monitor closely, and reassess. Symptoms at this time do not appear overtly related to a seizure, and seem more mechanical based on the loose step per EMS and the patient as well as her intoxicated state. Also of note there was no postictal phase per EMS. Tetanus is up-to-date. I have updated the patient's mother who is also notably concerned and worried and does demonstrate some anxiety with the situation. We will keep her up-to-date. [address] scan results have returned, per virtual radiology the anterior falx does appear slightly hypodense, concerning for trace subdural hematoma. X-ray of the hand demonstrates no acute process. CT scan of the pelvis does demonstrate evidence of a distal sacrum and coccyx fracture. No other acute traumatic process per virtual radiology. Bleeding has been stabilized on the scalp, we continued to clean the hair for better visualization. I did contact [facility] neurosurgery and discussed the case with Dr. Jeanine Potts, she feels that the findings on the CT scan upon her review are minimal to mild at best, but based on the mechanism does recommend admission observation serial neurologic exams and repeat CAT scan in the morning to evaluate for any change. Patient remained stable. She is still anxious, labs are unremarkable aside for the elevated alcohol of 219. We will continue to monitor, and admit to hospitalist medicine. 12:15 AM Discussed the case with the hospitalist Dr. Dinero. She agrees with the assessment and plan. She has agreed to admission and will place admission orders. Of note the patient's older sister did call later, and felt that the patient should be discharged so the patient could be watched at home. I made it clear that this would not be in the patient's best interest that this is not my recommendation. She did request to speak with the nursing correspondence section supervisor about allowing the mother to come in to stay with the patient but I did inform her that this is against current hospital policy. She did speak with the nursing correspondence section supervisor television camera operator about this. I have extensively reviewed the treatment plan with the patient. I have addressed all patient concerns at this time. I have also discussed the plan with the admitting physician and they agree with the current assessment and plan and have agreed to assume responsibility for the patient. All parties demonstrate verbal understanding and agreement with our assessment and plan at this time. The documentation in this chart was dictated using interclick dictation software. Please excuse any dictation errors. FINDINGS: Brain: In comparison to 05/27/2015, the anterior falx appears hyperdense and slightly thickened, this may reflect differences in technique but in the setting of trauma, trace subdural hemorrhage is suspected. No large intracranial hemorrhage, midline shift, or mass effect. The silva-white differentiation is preserved. Cerebral ventricles: No ventriculomegaly. Bones/joints: No acute fracture. Paranasal sinuses: Visualized sinuses are unremarkable. No fluid levels. Mastoid air cells: Visualized mastoid air cells are well aerated. Soft tissues: High posterior scalp swelling and laceration. IMPRESSION: 1. The anterior falx appears diffusely hyperdense and slightly thickened raising suspicion for trace subdural hemorrhage in the setting of trauma. 2. High posterior scalp swelling and laceration without underlying fracture. FINDINGS: Bones/joints: Straightening of cervical lordosis is likely due to positioning or muscle spasm. The alignment is otherwise maintained. The vertebral body heights and intervertebral disc space heights are maintained. No acute fracture or malalignment. Discs/Spinal canal/Neural foramina: No significant disc protrusion. No severe spinal canal stenosis. No significant neural foraminal narrowing. Lungs: Lung apices are normal. Soft tissues: Unremarkable. IMPRESSION: No acute fracture or malalignment. Thank you for allowing us to participate in the care of your patient. Dictated and Authenticated by: Vianca Danielle MD 07/04/2020 10:41 PM Eastern Time ([place] & [place]) FINDINGS: Bones/joints: No fractures or dislocations identified. Soft tissues: Soft tissue injury/laceration over the medial aspect of the hand. IMPRESSION: No fractures or dislocations. Soft tissue injury over the medial aspect of the right hand. Thank you for allowing us to participate in the care of your patient. Dictated and Authenticated by: Clint Hutson MD 07/04/2020 11:09 PM Eastern Time ([place] & [place]) FINDINGS: Liver: No mass. Gallbladder and bile ducts: No calcified stones. No ductal dilation. Pancreas: No ductal dilation. Spleen: No splenomegaly. Adrenal glands: Normal. No mass. Kidneys and ureters: Unremarkable. No hydronephrosis. Stomach and bowel: No obstruction. No mucosal thickening. Appendix: No evidence of appendicitis. Intraperitoneal space: No free air. No significant fluid collection. Vasculature: No abdominal aortic aneurysm. Lymph nodes: No enlarged lymph nodes. Urinary bladder: Unremarkable as visualized. Reproductive: Unremarkable as visualized. Bones/joints: Degenerative changes within lower lumbar spine. There is a fracture of lower sacrum and coccyx. There is no significant displacement, anterior angulation. Soft tissues: Mild infiltration/stranding within soft tissues overlying distal sacrum and coccyx.. IMPRESSION: Fractures of the distal sacrum and coccyx. No other fractures identified. No acute intra-abdominal pathology identified. Thank you for allowing us to participate in the care of your patient. Dictated and Authenticated by: Clint Hutson MD 07/04/2020 11:13 PM Eastern Time ([place] & [place]) HPI General Date/Time Provider Initiated Documentation: 07/04/20 22:02 . HPI Narrative: 34-year-old female with a past medical history of ADHD, chronic pain in her right ankle secondary to old sprain, previous febrile seizure/undifferentiated seizure in the distant past, who presents today for evaluation of fall. This evening the patient was drinking alcohol, she went downstairs and on the third step from the bottom she stepped on an unsecured step which caused her to slip and fall and hit her head and buttocks. She states that she does recall the event. Upon EMS arrival patient was alert and oriented but mildly intoxicated. No focal deficits per EMS. Notable bleeding coming from her scalp, small laceration to her right hand, and pain in her buttock. She is brought to the ER for further evaluation. Currently aside for pain in the buttock and the scalp the patient has no other complaints. She states that her ankle hurts like it normally does but no new pain. She states that it is unchanged otherwise. She is not on blood thinners. She refused c- collar on EMS arrival, denies neck pain, and continues to refuse c-collar here. She is notably anxious. No other complaints or additional historical components. Related Data Home Medications Medication Instructions Recorded Confirmed albuterol sulfate 1 puff IH Q4H PRN #8 gm 05/05/18 07/04/20 Excedrin Migraine 1 tab PO Q6H PRN 08/13/18 07/04/20 acetaminophen 500 mg capsule 1,000 mg PO Q8H PRN PRN #60 cap 12/31/18 07/04/20 ibuprofen 600 mg tablet 600 mg PO Q8H PRN #60 tab 12/31/18 07/04/20 nicotine 14 mg/24 hr daily 1 patch TD DAILY #90 each 11/25/19 07/04/20 transdermal patch nicotine 7 mg/24 hr daily 1 patch TD DAILY #14 each 11/25/19 07/04/20 transdermal patch norelgestromin 150 mcg-e.estradiol 1 patch TRANSDERMAL QWEEK #9 each 11/25/19 07/04/20 35 mcg/24 hr weekly transderm patch Previous Rx's Medication Instructions Recorded albuterol sulfate 1 puff IH Q4H PRN #8 gm 05/05/18 acetaminophen 500 mg capsule 1,000 mg PO Q8H PRN PRN #60 cap 12/31/18 ibuprofen 600 mg tablet 600 mg PO Q8H PRN #60 tab 12/31/18 nicotine 14 mg/24 hr daily 1 patch TD DAILY #90 each 11/25/19 transdermal patch nicotine 7 mg/24 hr daily 1 patch TD DAILY #14 each 11/25/19 transdermal patch norelgestromin 150 mcg-e.estradiol 1 patch TRANSDERMAL QWEEK #9 each 11/25/19 35 mcg/24 hr weekly transderm patch Allergies Allergy/AdvReac Type Severity Reaction Status Date / Time Penicillins Allergy Unknown Skin Rash Unverified 07/04/20 22:00 amoxicillin [Amoxicillin] Allergy Skin Rash Unverified 07/04/20 22:00 Iodinated Contrast Media Allergy Hives Unverified 07/04/20 22:00 [Iodinated Contrast- Oral and IV Dye] benzonatate AdvReac Intermediate Nausea and Unverified 07/04/20 22:00 vomiting General Stated Complaint: Trauma LAYNE: 2 Review of Systems All systems reviewed & are unremarkable except as noted in HPI and below PFSH Medical History (Updated 07/05/20 @ 01:30 by Kenzie Dinero MD) Attention deficit hyperactivity disorder, combined type Cigarette smoker Contraceptive surveillance Febrile seizures Surgical History No significant past surgical history Family History Mother Diabetes Hypertension Depression Father Emphysema lung Sister Epilepsy Asthma Depression Hypertension Sister No problems noted. Sister No problems noted. Sister No problems noted. Brother No problems noted. Brother No problems noted. Daughter No problems noted. Maternal Grandfather No problems noted. Maternal Grandmother No problems noted. Paternal Grandfather No problems noted. Paternal Grandmother No problems noted. Social History Smoking/Tobacco Use Status: Current every day Tobacco: How many years used: 16 Quit status: has quit before Smoking risk assessment performed?: Yes Alcohol Intake: current Alcohol Intake frequency: a few times a week Alcohol type: beer Drug use: Never Substance use type: does not use Current gender identity: female Do you feel safe at home: Yes Do you feel safe in your relationship?: Yes History History 2 Para 1 Hx # Term Pregnancies Multiple births Hx # Pregnancies Ectopic pregnancies AB induced 1 Hx Number of Living Children 1 AB spontaneous Exam Narrative Exam Narrative: 1.Const: Well-nourished, Well-developed, appearing stated age 2.Eyes: PERRL, no conjunctival injection, and symmetrical lids. 3.ENT: Atraumatic external nose and ears. Moist MM. Neck: Symmetric, trachea midline, No thyromegaly. There is no evidence of raccoon eyes, murray sign, CSF rhinorrhea, mastoid tenderness, cranial crepitus, hemotympanum, exophthalmos, or hyphema. Patient demonstrates intact dentition with no signs of tooth avulsion or fracture, no signs of jaw deformity, no evidence of a LeFort's fracture, with an intact palate, nose and orbital region. There is no evidence of a nasal septal hematoma. No proptosis. Jaw closes symmetrically. Airway is clear. 4.CVS: +S1/S2, No murmurs or gallops. Peripheral pulses 2+ and equal in all extremities. Brisk capillary refill in all extremities. 5.RESP: Unlabored respiratory effort. Clear to auscultation bilaterally. No wheezes rales or rhonchi 6.GI: Soft, Nontender/Nondistended, No hepatosplenomegaly. No guarding or rebound. 7.MSK: Extremities w/o deformity. No cyanosis or clubbing, Normal movement of all extremities. Chronic pain in the right ankle, but no redness or acute swelling. Patient states that this is baseline. Patient right hand demonstrates a 3 cm laceration on the medial aspect at the hypothenar eminence. Superficial. Good sensation and capillary refill distally. Good flexion and extension of the hand. Scalp: Patient has recently dyed her hair and scalp red, notable amount of clot and hardening blood noted on initial exam, removal of a large amount of bandaging demonstrated a continuous steady flow of blood from the high posterior scalp, difficult to see clear laceration due to the notable blood. Bqokua-qe-trjyf stitch was placed, in addition to a secondary simple interrupted stitch in the gross approximate location of the bleeding. This did seem to provide good hemostasis. Notable amount of bloody matted hair otherwise that is already dyed red makes exam challenging. We will clean, scrub, and reassess. No midline cervical thoracic or lumbar spine tenderness. Notable tenderness over the distal sacrum, no hip tenderness, no pain with logroll of the extremities. Patient demonstrates good flexion and extension at the hips and movement of the feet however there is notable pain in the sacrum with movement /flexion at the hips. Good sensation throughout. 8.Skin: Warm, Dry. Please see musculoskeletal for description of scalp laceration and hand laceration. 9.Neuro: retail beauty specialist II-XII grossly intact. Sensation grossly intact, no focal neurologic deficits. No dysdiadochokinesia or dysmetria. No nystagmus. Patient appears intoxicated but no clear signs of focal neurologic deficit. 10.Psych: (AAO) x3. Intoxicated, patient demonstrates notable intermittent episodes of significant anxiety. When discussing her medical prognosis and findings she becomes extremely anxious and tearful. Course Vital Signs Vital signs: Vital Signs Pulse 120 H 07/04/20 21:37 Respiratory Rate 24 07/04/20 21:37 Blood Pressure 139/94 H 07/04/20 21:37 Pulse Oximetry 100 07/04/20 21:37 Pulse 80 07/04/20 22:35 Respiratory Rate 24 07/04/20 21:37 Respiratory Effort Non-Labored 07/04/20 22:04 Blood Pressure 131/82 07/04/20 22:35 Pulse Oximetry 100 07/04/20 22:39 Pain Level 10 07/04/20 22:04 Lab/Test Results Lab/Test Results: Laboratory Tests Range/Units 07/04/20 07/04/20 22:00 22:00 WBC (4.4-10.8) 10^3/uL 10.83 H RBC (3.93-5.22) 10^6/uL 4.36 Hgb (11.2-15.7) g/dL 13.9 Hct (36.0-46.0) % 40.8 MCV (80-95) fL 93.6 MCH (27.0-33.0) pg 31.9 MCHC (32.0-36.0) % 34.1 RDW (11.7-14.6) % 12.8 Plt Count (130-400) 10^3/uL 258 MPV (8.0-11.0) fL 8.8 Immature Gran % 0.5 Neutrophils % 57.5 Lymphocytes % 31.3 Monocytes % 7.9 Eosinophils % 2.2 Basophils % 0.6 Nucleated RBC % % 0 Absolute Neutrophils (1.2-6.7) 10^3/uL 6.23 Absolute Lymphocytes (1.2-3.4) 10^3/uL 3.39 Absolute Monocytes (0.1-0.8) 10^3/uL 0.86 H Absolute Eosinophils (0.0-0.7) 10^3/uL 0.24 Absolute Basophils (0.0-0.2) 10^3/uL 0.06 Sodium (136-145) mmol/L 134 L Potassium (3.5-5.1) mmol/L 3.4 L Chloride (98-107) mmol/L 98 Carbon Dioxide (21.0-32.0) mmol/L 25.1 Anion Gap (3-11) mmol/L 10.9 BUN (7-18) mg/dL 7 Creatinine (0.55-1.02) mg/dL 0.8 Estimated GFR/1.73 m2 (mL/min/1.73m2) >= 60.00 Glucose (74-106) mg/dL 107 H Calcium (8.5-10.1) mg/dL 8.0 L Total Bilirubin (0.2-1.0) mg/dL 0.4 AST (15-37) U/L 17 ALT (14-59) U/L 19 Alkaline Phosphatase (46-116) U/L 88 Total Protein (6.4-8.2) g/dL 7.3 Albumin (3.4-5.0) g/dL 3.6 Ethyl Alcohol (<3) mg/dL 219.6 Procedures Laceration Laceration 1: Site: scalp Size (cm): 1 Description: irregular Depth: involves muscle layer Pre-repair: wound explored and irrigated extensively (Notable significant risk of bleeding, no clear evidence of skull or Galea involvement) Skin layer closed with: other (Prolene) Size (cm): 3-0 Number of sutures: 2 Technique: simple, interrupted and other (1 simple interrupted suture and one sfjsop-hd-reigu suture) Laceration 2: Site: hand Side (If applicable): right Size (cm): 1.5 Description: linear Depth: simple, single layer Local Anesthetic: Lidocaine 1% Amount of anesthesia used (mL): 2 Pre-repair: wound explored, irrigated extensively and deep structures intact Skin layer closed with: nylon Size (cm): 4-0 Number of sutures: 4 Technique: simple, interrupted
--- NOTE | 2020-07-04 23:14 | DI.VRAD_ITS ---
PROCEDURE INFORMATION: Exam: CT Abdomen And Pelvis Without Contrast Exam date and time: 07/04/2020 10:25 PM Age: 34 years old Clinical indication: Injury or trauma; Blunt; Lower; Injury details: Rule out fracture; Patient HX: Fall, sacral pain, drunk TECHNIQUE: Imaging protocol: Computed tomography of the abdomen and pelvis without contrast. COMPARISON: CT ABDOMEN PELVIS WO 07/04/2020 10:10 PM FINDINGS: Liver: No mass. Gallbladder and bile ducts: No calcified stones. No ductal dilation. Pancreas: No ductal dilation. Spleen: No splenomegaly. Adrenal glands: Normal. No mass. Kidneys and ureters: Unremarkable. No hydronephrosis. Stomach and bowel: No obstruction. No mucosal thickening. Appendix: No evidence of appendicitis. Intraperitoneal space: No free air. No significant fluid collection. Vasculature: No abdominal aortic aneurysm. Lymph nodes: No enlarged lymph nodes. Urinary bladder: Unremarkable as visualized. Reproductive: Unremarkable as visualized. Bones/joints: Degenerative changes within lower lumbar spine. There is a fracture of lower sacrum and coccyx. There is no significant displacement, anterior angulation. Soft tissues: Mild infiltration/stranding within soft tissues overlying distal sacrum and coccyx.. IMPRESSION: Fractures of the distal sacrum and coccyx. No other fractures identified. No acute intra-abdominal pathology identified. Dictated and Authenticated by: Clint Hutson MD. Ordering:DINA Guerrero MD
[2020-07-05] VITALS (11 sets, daily range): BP systolic 122–144; BP diastolic 81–95; PULSE 83–125; RESP 15–21; TEMP 36.1–37.1; O2SAT 94–99
[2020-07-05] MEDS: Normal Saline 1,000 ML 1000 ML IV (00:31)
[2020-07-05 00:46] LABS: Source Nasal/Nares
[2020-07-05 01:04] LABS: *AMPHETAMINES SCREEN URINE Negative (Negative); *BARBITURATES SCREEN URINE Negative (Negative); *BENZODIAZEPINES SCREEN URINE Negative (Negative); Cannabinoids THC POSITIVE (Negative); Cocaine Screen,Urine Negative (Negative); METHADONE URINE SCREEN Negative (Negative); OPIATES URINE SCREEN Negative (Negative)
[2020-07-05 01:08] LABS: Tricyclic Antidepressants Negative (Negative)
--- NOTE | 2020-07-05 01:22 | HPE_ITS ---
Date of service: 07/05/20 Time of Service: 01: Assessment and Plan Assessment and plan (1) Subdural hematoma: Status: Suspected Assessment and plan: observe in ICU with Q1H neurochecks and repeat CT h ead in am. (2) Alcohol abuse: Status: Chronic Assessment and plan: Intoxicated on presentation. Monitor on CIWA. Prn ativan. Banana bag. (3) Scalp laceration: Status: Acute Assessment and plan: sutured and dressed. Consider wound care consult (4) Cigarette smoker: Status: Chronic Assessment and plan: Patient advised to quit. Agrees to nicotrol inhaler. (5) Fractured coccyx: Status: Acute Assessment and plan: C/s PT to ensure safety of ambulation Pain seems controlled. (6) Sacral fracture: Status: Acute Assessment and plan: As above (7) Discharge planning issues: Status: Acute Assessment and plan: Full code. May require transfer to a tertiary care facility. The patient advised of risks if she decides to leave AMA - verbalizes understanding that these include possible . History of Present Illness History of Present Illness Chief Complaint: Fall down the stairs Narrative: Ms Shrestha is a 34 year old female with PMHx of ADHD, tobacco and alcohol abuse, who was brought to [facility] ED after falling down the stairs while intoxicated. She did hit her head, lacerating her scalp. This laceration, as well as laceration of her right hand had to be sutured in the ED. She landed on her buttocks, fracturing distal sacrum and coccyx. The patient states that this is not her first fall this week. She drinks daily (3 24 oz beers). She denies hx of DT's/EtOH w/d seizures. She does have a h/o febrile seizures. The patient states the fall was mechanical. She states her head and sacrum hurt just a little bit. ED workup revealed a possible subdural hemorrhage. Images were reviewed by [facility] neurosurgery, who felt this was less likely, but agreed that the patient should be monitored with neurochecks overnight and needs to have a repeat CT head in the am. The patient is still intoxicated. Hospitalists were asked to take over care. During our conversation, the patient is already endorsing a strong desire to alexi ve AMA, which the patient was strongly advised against. She verbalized understanding that if, indeed, she has a subdural hematoma, without treatment she could . Review of Systems All systems reviewed & are unremarkable except as noted in HPI and below PFSH Medical History (Updated 07/05/20 @ 01:58 by Kenzie Dinero MD) Alcohol abuse Attention deficit hyperactivity disorder, combined type Cigarette smoker Contraceptive surveillance Febrile seizures Surgical History No significant past surgical history Family History Mother Diabetes Hypertension Depression Father Emphysema lung Sister Epilepsy Asthma Depression Hypertension Sister No problems noted. Sister No problems noted. Sister No problems noted. Brother No problems noted. Brother No problems noted. Daughter No problems noted. Maternal Grandfather No problems noted. Maternal Grandmother No problems noted. Paternal Grandfather No problems noted. Paternal Grandmother No problems noted. Social History Smoking/Tobacco Use Status: Current every day Tobacco: How many years used: 16 Quit status: has quit before Smoking risk assessment performed?: Yes Alcohol Intake: current Alcohol Intake frequency: a few times a week Alcohol type: beer Drug use: Never Substance use type: does not use Current gender identity: female Do you feel safe at home: Yes Do you feel safe in your relationship?: Yes History History 2 Para 1 Hx # Term Pregnancies Multiple births Hx # Pregnancies Ectopic pregnancies AB induced 1 Hx Number of Living Children 1 AB spontaneous Meds Home Medications and Allergies Allergies Allergy/AdvReac Type Severity Reaction Status Date / Time Penicillins Allergy Unknown Skin Rash Unverified 07/04/20 22:00 amoxicillin [Amoxicillin] Allergy Skin Rash Unverified 07/04/20 22:00 Iodinated Contrast Media Allergy Hives Unverified 07/04/20 22:00 [Iodinated Contrast- Oral and IV Dye] benzonatate AdvReac Intermediate Nausea and Unverified 07/04/20 22:00 vomiting Home Medications Medication Instructions Recorded Confirmed Type albuterol sulfate 1 puff IH Q4H PRN #8 gm 05/05/18 07/04/20 Rx Excedrin Migraine 1 tab PO Q6H PRN 08/13/18 07/04/20 History acetaminophen 500 mg capsule 1,000 mg PO Q8H PRN PRN #60 cap 12/31/18 07/04/20 Rx ibuprofen 600 mg tablet 600 mg PO Q8H PRN #60 tab 12/31/18 07/04/20 Rx nicotine 14 mg/24 hr daily 1 patch TD DAILY #90 each 11/25/19 07/04/20 Rx transdermal patch nicotine 7 mg/24 hr daily 1 patch TD DAILY #14 each 11/25/19 07/04/20 Rx transdermal patch norelgestromin 150 mcg-e.estradiol 1 patch TRANSDERMAL QWEEK #9 each 11/25/19 07/04/20 Rx 35 mcg/24 hr weekly transderm patch Exam Narrative Exam Narrative: General: Anxious female, tearful during our conversation, no signs of EtOH w/d. Neurological: A&Ox3, EOMI, able to move all 4 extremities; exam limited due to patient's anxiety over wanting to leave AMA, at which point she became uncooperative Psychiatric: Anxious Skin: Laceration R hand sutured, not actively bleeding. Scalp laceration is dressed during my exam and covered with a shower cap. HEENT: EOMI, dry MM, clear oropharynx, broken tooth/teeth, no submandibular or cervical lymphadenopathy, no goiter or JVD; see skin exam above. Cardiovascular: RRR, no m/r/g Lungs: CTAB Gastrointestinal: soft, nontender, nondistended Genitourinary: deferred Extremities: no e/c/c BLE's; recently injured R ankle not edematous, no bruising, 2+ pedal pulses B Results Imaging Additional studies: CT abdomen/pelvis w/o contrast: Fractures of the distal sacrum and coccyx. No other fractures identified. No acute intra-abdominal pathology identified. CT head w/o contrast: 1. The anterior falx appears diffusely hyperdense and slightly thickened raising suspicion for trace subdural hemorrhage in the setting of trauma. 2. High posterior scalp swelling and laceration without underlying fracture. CT c-spine: No acute fracture or malalignment. XR R hand: No fractures or dislocations. Soft tissue injury over the medial aspect of the right hand. Labs Result diagrams: 07/04/20 22:00 07/04/20 22:00 Labs: Laboratory Results - last 24 hr 07/04/20 07/04/20 07/05/20 22:00 22:00 00:30 WBC 10.83 H RBC 4.36 Hgb 13.9 Hct 40.8 MCV 93.6 MCH 31.9 MCHC 34.1 RDW 12.8 Plt Count 258 MPV 8.8 Immature Gran % 0.5 Neutrophils % 57.5 Lymphocytes % 31.3 Monocytes % 7.9 Eosinophils % 2.2 Basophils % 0.6 Nucleated RBC % 0 Absolute Neutrophils 6.23 Absolute Lymphocytes 3.39 Absolute Monocytes 0.86 H Absolute Eosinophils 0.24 Absolute Basophils 0.06 Sodium 134 L Potassium 3.4 L Chloride 98 Carbon Dioxide 25.1 Anion Gap 10.9 BUN 7 Creatinine 0.8 Estimated GFR/1.73 m2 >= 60.00 Glucose 107 H Calcium 8.0 L Total Bilirubin 0.4 AST 17 ALT 19 Alkaline Phosphatase 88 Total Protein 7.3 Albumin 3.6 Urine Opiates Screen Urine Methadone Screen Ur Barbiturates Screen Ur Tricyclics Screen Ur Amphetamines Screen U Benzodiazepines Scrn Urine Cocaine Screen Ur THC Screen Ethyl Alcohol 219.6 COVID-19 Source Nasal/nares 07/05/20 00:30 WBC RBC Hgb Hct MCV MCH MCHC RDW Plt Count MPV Immature Gran % Neutrophils % Lymphocytes % Monocytes % Eosinophils % Basophils % Nucleated RBC % Absolute Neutrophils Absolute Lymphocytes Absolute Monocytes Absolute Eosinophils Absolute Basophils Sodium Potassium Chloride Carbon Dioxide Anion Gap BUN Creatinine Estimated GFR/1.73 m2 Glucose Calcium Total Bilirubin AST ALT Alkaline Phosphatase Total Protein Albumin Urine Opiates Screen Negative Urine Methadone Screen Negative Ur Barbiturates Screen Negative Ur Tricyclics Screen Negative Ur Amphetamines Screen Negative U Benzodiazepines Scrn Negative Urine Cocaine Screen Negative Ur THC Screen Positive A Ethyl Alcohol COVID-19 Source Last Vital Signs Pulse 91 H 07/04/20 23:30 Resp 24 07/04/20 21:37 BP 109/82 07/04/20 23:30 Pulse Ox 100 07/04/20 23:33 COVID-19 Screening Have you, or household traveled for leisure in last 14 days?: No Had IN PERSON contact w/suspected or confirmed C-19 person: No
[2020-07-05] MEDS: THIAMINE 100 MG in Normal Saline 100 ML 200 MG IVPB (02:27)
[2020-07-05 06:43] LABS: Abs Immature Grans 0.03 10^3/uL (0.0-0.06); Absolute Basophil Count 0.02 10^3/uL (0.0-0.2); Absolute Eosinophil Count 0.08 10^3/uL (0.0-0.7); Absolute Lymphocyte Count 1.69 10^3/uL (1.2-3.4); Absolute Monocyte Count 0.75 10^3/uL (0.1-0.8); Absolute Neutrophil Count 9.52 10^3/uL (1.2-6.7); Basophils % 0.2; Eosinophils % 0.7; HCT 37.5 % (36.0-46.0); HGB 12.6 g/dL (11.2-15.7); Immature Grans % 0.2; MCH 31.5 pg (27.0-33.0); MCHC 33.6 % (32.0-36.0); MCV 93.8 fL (80-95); MPV 9.2 fL (8.0-11.0); Monocytes % 6.2; Neutrophils % 78.7; Nucleated RBC 0 %; Platelet Count 265 10^3/uL (130-400)
[2020-07-05 06:52] LABS: Anion Gap 12.2 mmol/L (3-11); BUN 6 mg/dL (7-18); CO2 21.8 mmol/L (21.0-32.0); CREATININE 0.7 mg/dL (0.55-1.02); Calcium 7.8 mg/dL (8.5-10.1); Chloride 103 mmol/L (98-107); Glucose 145 mg/dL (74-106); Magnesium 1.6 mg/dL (1.8-2.4); Sodium 137 mmol/L (136-145)
[2020-07-05 06:58] LABS: Potassium 4.1 mmol/L (3.5-5.1)
--- NOTE | 2020-07-05 08:44 | DI.CT_ITS ---
EXAM: CT HEAD WO CLINICAL HISTORY: Follow up head trauma - ?subdural hematoma. TECHNIQUE: Imaging Protocol: Axial computed tomography images with coronal and sagittal reformatted images were created and reviewed COMPARISON: CT CT HEAD CERVICAL SPINE WO from 07/04/2020 FINDINGS: There are no skull fractures nor fluid in the visualized paranasal sinuses. Appearance of the brain is unchanged from yesterday. Subtle increased density along the falx is unch anged. No evidence of new intracranial hemorrhage. Ventricles are not enlarged or shifted. There i s no blood within the ventricular system nor within the basal cisterns. IMPRESSION: No significant change compared to CT scan performed yesterday. Equivocal for minimal amount of blood along the falx. This may or may not be a real finding. If clinically indicated follow-up noninfuse d MRI can be performed to determine if there is signal present consistent with blood. RADIATION DOSE DELIVERED: 769.8mGy.cm Total DLP DATA REPOSITORY: All CT scans at this facility are submitted to the National Radiology Data Registry (NRDR) Dose Index Registry (DIR) with the [employer] (ACR). RADIATION OPTIMIZATION: All CT scans at this facility use at least one of these dose optimization te chniques: automated exposure control; mA and/or kV adjustment per patient size (includes targeted exa ms where dose is matched to clinical indication); or iterative reconstruction.
[2020-07-05] MEDS: MAGNESIUM SULFATE 2 GM/50 ML BAG IVPB (08:57)
--- NOTE | 2020-07-05 08:58 | DI.VRAD_ITS ---
PROCEDURE INFORMATION: Exam: CT Head Without Contrast Exam date and time: 07/05/2020 12:26 AM Age: 34 years old Clinical indication: Injury or trauma; Fall; Blunt trauma (contusions or hematomas); Consciousness not specified; Injury details: F/u head trauma - ? subdural hematoma TECHNIQUE: Imaging protocol: Computed tomography of the head without contrast. Radiation optimization: All CT scans at this facility use at least one of these dose optimization techniques: automated exposure control; mA and/or kV adjustment per patient size (includes targeted exams where dose is matched to clinical indication); or iterative reconstruction. COMPARISON: CT HEAD CERVICAL SPINE WO 07/04/2020 10:10 PM FINDINGS: Brain: No new acute hemorrhage or acute territorial infarct. Diminished conspicuity of the falcine density seen anteriorly on the previous. Brain volume is maintained. Cerebral ventricles: No ventriculomegaly. Bones/joints: Unremarkable. No acute fracture. Paranasal sinuses: Visualized sinuses are unremarkable. No fluid levels. Mastoid air cells: Visualized mastoid air cells are well aerated. Soft tissues: Slight interval improvement scalp hematoma/trauma posteriorly IMPRESSION: Improved appearance of the brain. Improved subcutaneous hematoma/trauma. No new findings. Dictated and Authenticated by: Miguel Pugh MD. Ordering:JUAQUIN Espino MD
--- NOTE | 2020-07-05 09:05 | NUR.NOTE ---
RN returns from radiology where patient underwent CT of head. Patient's pain in good control. Patient looks forward to discharge if CT of head is negative.Nursing Note:
--- NOTE | 2020-07-05 09:06 | W.PM.PROGNOT ---
Date of Service Date of service: 07/05/20 Time of Service: 09:06 Assessment and Plan Assessment and plan (1) Subdural hematoma: Status: Ruled-out Assessment and plan: Repeat CT scan of her head showed no subdural bleed. The questionable area of her anterior falx which it appears hyperdense and slightly thickened raising the suspicions for subdural hemorrhage last night actually showed improvement overnight.Reportedly there was diminished conspicuity of the falcine density that have been seen on the previous CT scan from last night. Radiologist is now saying improved appearance of the brain with improved subcutaneous hematoma/trauma. No new findings. This point I think the patient can be discharged home with close follow-up with her primary care provider this week. Patient's been given instructions about what to watch for in terms of postconcussion syndrome as well as signs and symptoms of a developing subdural hematoma. She is to avoid all alcohol use and to remain off work until she sees her primary care provider this week. (2) Alcohol abuse: Status: Chronic Assessment and plan: Discharge home with instructions to avoid alcohol or sedative use. Case management is indicated and will provide an alcohol cessation assistant basketball coach. (3) Scalp laceration: Status: Acute Assessment and plan: sutured and dressed. Patient is given instructions on wound care and she is to follow-up with her primary care provider this week. Qualifiers: Encounter type: subsequent encounter Qualified Code(s): S01.01XD - Laceration without foreign body of scalp, subsequent encounter (4) Fractured coccyx: Status: Acute Assessment and plan: Patient continues Tylenol as needed for pain. She is to follow-up with her primary care provider. Qualifiers: Encounter type: initial encounter Fracture type: closed Qualified Code(s): S32.2XXA - Fracture of coccyx, initial encounter for closed fracture (5) Sacral fracture: Status: Acute Assessment and plan: As above Qualifiers: Encounter type: initial encounter Fracture type: closed Fracture morphology: unspecified fracture morphology Qualified Code(s): S32.10XA - Unspecified fracture of sacrum, initial encounter for closed fracture (6) Discharge planning issues: Status: Acute Assessment and plan: Discharge home with close follow-up with her primary care provider this week. Subjective Subjective Interval history since last seen: Patient denies any acute neurologic symptoms such as headache or blurred vision or nausea or vomiting. She is requesting to be discharged home. I reviewed her repeat CT scan of her head this morning. Radiologist is reporting improvement in that questionable area in the falx. Improved appearance of the brain. Improved subcutaneous hematoma/trauma. No new findings. This is a report from Dr. Miguel Khalil. I reviewed with the patient warning signs and symptoms of a subdural bleed such as severe headaches blurred vision, unusual sleepiness, nausea and vomiting. I advised her to avoid all alcohol and to avoid aspirin or blood thinners. She has been told that she can use Tylenol as needed for any minor aches and pains. She is being given discharge instructions regarding care of her scalp and hand wound. She is to have the sutures removed in 7 to 10 days. She should see her primary care provider this week and should call tomorrow for an appointment. I advised her to stay off work this week until she sees her primary care provider. I also advised her that she should not be home alone for the next 24 hours but should have a family member or friend stay with her to monitor for any acute neurologic change. Exam Narrative Exam Narrative: Young female sitting up in her bed very pleasant smiling eager to return home. Speech is clear and coherent there is no facial asymmetry full extraocular motions intact. Scalp has a lot of matted hair with clotted blood to the hair. Blue suture material appears to be intact and the wound is primarily closed. Examination of the right hand reveals laceration that is also been primarily closed with suture material. Her neck is supple with just some minimal tenderness with range of motion testing. Lungs are clear to auscultation heart regular rate and rhythm. Thoracic and lumbar spine are nontender to palpation. Left lower sacrum at the coccygeal junction is tender to palpation. Objective Last Vital Signs Temp 36.1 C L 07/05/20 09:02 Pulse 85 07/05/20 09:02 Resp 21 07/05/20 09:02 BP 140/93 H 07/05/20 09:02 Pulse Ox 97 07/05/20 09:02 Laboratory Results - last 24 hr 07/04/20 07/04/20 07/05/20 22:00 22:00 00:30 WBC 10.83 H RBC 4.36 Hgb 13.9 Hct 40.8 MCV 93.6 MCH 31.9 MCHC 34.1 RDW 12.8 Plt Count 258 MPV 8.8 Immature Gran % 0.5 Neutrophils % 57.5 Lymphocytes % 31.3 Monocytes % 7.9 Eosinophils % 2.2 Basophils % 0.6 Nucleated RBC % 0 Absolute Neutrophils 6.23 Absolute Lymphocytes 3.39 Absolute Monocytes 0.86 H Absolute Eosinophils 0.24 Absolute Basophils 0.06 Sodium 134 L Potassium 3.4 L Chloride 98 Carbon Dioxide 25.1 Anion Gap 10.9 BUN 7 Creatinine 0.8 Estimated GFR/1.73 m2 >= 60.00 Glucose 107 H Calcium 8.0 L Magnesium Total Bilirubin 0.4 AST 17 ALT 19 Alkaline Phosphatase 88 Total Protein 7.3 Albumin 3.6 Urine Opiates Screen Urine Methadone Screen Ur Barbiturates Screen Ur Tricyclics Screen Ur Amphetamines Screen U Benzodiazepines Scrn Urine Cocaine Screen Ur THC Screen Ethyl Alcohol 219.6 COVID-19 Source Nasal/nares 07/05/20 07/05/20 07/05/20 00:30 06:15 06:15 WBC 12.10 H RBC 4.00 Hgb 12.6 Hct 37.5 MCV 93.8 MCH 31.5 MCHC 33.6 RDW 13.0 Plt Count 265 MPV 9.2 Immature Gran % 0.2 Neutrophils % 78.7 Lymphocytes % 14.0 Monocytes % 6.2 Eosinophils % 0.7 Basophils % 0.2 Nucleated RBC % 0 Absolute Neutrophils 9.52 H Absolute Lymphocytes 1.69 Absolute Monocytes 0.75 Absolute Eosinophils 0.08 Absolute Basophils 0.02 Sodium 137 Potassium 4.1 D Chloride 103 Carbon Dioxide 21.8 Anion Gap 12.2 H BUN 6 L Creatinine 0.7 Estimated GFR/1.73 m2 >= 60.00 Glucose 145 H Calcium 7.8 L Magnesium 1.6 L Total Bilirubin AST ALT Alkaline Phosphatase Total Protein Albumin Urine Opiates Screen Negative Urine Methadone Screen Negative Ur Barbiturates Screen Negative Ur Tricyclics Screen Negative Ur Amphetamines Screen Negative U Benzodiazepines Scrn Negative Urine Cocaine Screen Negative Ur THC Screen Positive A Ethyl Alcohol COVID-19 Source
[2020-07-05 09:40] LABS: ETHANOL BLOOD < 3.0 mg/dL (<3)
--- NOTE | 2020-07-05 10:21 | PT.INIE ---
Date of service: 07/05/20 Time of Service: 09:55 PT Notes Visit Reasons: POSSIBLE SUBDURAL HEMATOMA, ALCOHOL INTOXICATION Inpatient Physical Therapy Evaluation Date: 07/05/20 Referring Doctor: Kenzie Dinero MD PT Orders: PT CONSULT: Limited ability Precautions: Standard Patient Profile/Admitting Diagnosis: Patient is a 34-year-old female arriving at [facility] emergency room secondary to a slip and fall down some stairs resulting in posterior head laceration, right hand laceration and fractured coccyx and sacrum. Initially referred for PT secondary to limited ability. There was question of subdural hematoma which was ruled out. When patient arrived at ER she was displaying signs of alcohol intoxication. PMHX: Medical History (Updated 07/05/20 @ 01:58 by Kenzie Dinero MD) Alcohol abuse Attention deficit hyperactivity disorder, combined type Cigarette smoker Contraceptive surveillance Febrile seizures Chronic right ankle sprain Surgical History No significant past surgical history Social History/Home Situation: Lives in a home with her mother and daughter. History of employment at [employer] Current Functional Limitations: None Equipment Owned/DME: None Subjective: Patient states she spoke with a doctor last night and she is slated to be discharged from the hospital later this morning. She is excited to return home. Has complaints of some mild discomfort through her lacerations that were closed with stitches as well as to her sacrum but is anxious to go home. Objective: General Observation: Very cooperative and pleasant. Laceration in right hand hypothenar eminence and posterior scalp closed with no drainage with surgical sutures. On telemetry. Sitting up in bed with head of bed at 50 degrees. Mental Status: Alert and orientated x3. Pain: 5/10 globally over lacerations and sacrum. Vital Signs: 143/91, pulse ox 98% ROM: Right Upper Extremity: Within normal limits Left Upper Extremity: Within normal limits Right Lower Extremity: Mild discomfort reported with terminal hip flexion at 115 degrees, knee flexion and extension within normal limits Left Lower Extremity: Mild discomfort reported with terminal hip flexion 110 degrees, knee flexion and extension within normal limits Strength: Right Upper Extremity: Grossly 4+/5 throughout Left Upper Extremity: Grossly 4+/5 throughout Right Lower Extremity: Grossly 4+/5 throughout pain-free Left Lower Extremity: Grossly 4+/5 throughout pain-free Sensation: Patient reports intact sensation bilateral upper and lower extremities to light touch. Bed Mobility/Transfers: Supine to sit: Independent Sit to stand: Independent Stand to sit: Independent Bed mobility: Independent Gait: Patient ambulates 15 feet in ICU room with no complaints of pain. Able to perform unilateral stance on individual lower extremities for 6 seconds without limitation due to pain. Balance: Static Sitting: Normal Dynamic Sitting: Normal Static Standing: Normal Dynamic Standing: Normal Special Tests: Mobility Limitations Standardized Measure [facility] AM-PAC 6 clicks Basic Mobility Inpatient Short Form: Raw Score: 24 Standardized Score: 61.14 [facility] Score: 0 Informed Consent/Education: Patient instructed in purpose of PT consult and plan of care. Assessment: Patient is a 34 year old female referred to physical therapy services with the diagnosis of head and right hand laceration, sacral and coccyx fractures secondary to fall. Patient presents with clinical signs and symptoms consistent with above diagnosis. Based on results of today's initial valuation do not feel patient warrants skilled physical therapy at this time. She is independent all functional ability and is managing her pain independently. Was told by the physician that she was likely being discharged to home later this morning. Impairments are contributing to the following functional limitations: AMPAC score. Patient is assessed as a X low [id number] [] Moderate [id number] [] High 82530 complexity based on the following: History: See above Examination: See above Presentation: Stable Decision Making:AM-PAC 0% Goals: No goals necessary as patient is discharged home and is not in need of skilled physical therapy. DISCHARGE RECOMMENDATIONS: Discharge to home when deemed medically stable. TREATMENT CODE/TIME: 25 minutes, 9 55-10 20. Initial evaluation [id number]. Thank you for this consult. Harpreet Schafer PT, DPT Disclaimer: This note was created using [employer] voice recognition software. It was reviewed for major content. However, there may be multiple small discrepancies and errors due to the voice recognition aspects of the software.
[2020-07-05 10:27] LABS: COVID-19 PCR Negative (Negative)
[2020-07-05] MEDS: Acetaminophen 325 MG TAB PO (10:32)
--- NOTE | 2020-07-05 10:56 | W.PM.DS.N ---
DS: Diagnosis Discharge Diagnosis (1) Subdural hematoma: Status: Ruled-out Asessment and Plan: Patient sustained a closed head injury after a fall while intoxicated and suffered a laceration of her left occiput of her head. This was closed primarily with sutures by the emergency department. Noncontrast CT scan of the head and spine showed no cervical fracture. CT of the head showed posterior scalp swelling and laceration without skull fracture. Questionable diffusely hyperdense and slightly thickened anterior falx raises suspicion for trace subdural hematoma. Subsequent CT scan of the head without contrast the following morning on July 05, 2020 showed improved appearance of the brain with no acute hemorrhage or acute territorial infarct. There is diminished conspicuity of the falcine density seen anteriorly. Patient was given instructions regarding postconcussion care as well as warning signs and symptoms of subdural bleeding. (2) Alcohol abuse: Status: Chronic (3) Scalp laceration: Status: Acute Asessment and Plan: [id number] stitch was placed, in addition to a secondary simple interrupted stitch in the gross approximate location of the bleeding. This did seem to provide good hemostasis. Patient advised to see her primary care provider to have sutures removed in 7 to 10 days. Patient is given wound care instructions to keep the wound clean with soap and water but avoids submersion of her head. (4) Fractured coccyx: Status: Acute Asessment and Plan: Patient can use Tylenol as directed on the bottle as needed for pain. She should follow-up with her primary care provider who can make appropriate referrals for physical therapy if needed. (5) Sacral fracture: Status: Acute Discharge Plan Disposition Patient Disposition: HOME Condition: Improving Discharge Details Reason For Visit: POSSIBLE SUBDURAL HEMATOMA, ALCOHOL INTOXICATION Admit Date/Time: 07/05/20 00:17 Admit Provider: Kenzie Dinero Attending Provider: Kenzie Dinero Primary Care Provider: Smitha Bush Hospital Course Hospital Course: 34-year-old female with a past medical history of ADHD, tobacco and alcohol abuse who presented emergency department at [facility] intoxicated with a blood alcohol level of 219 having fallen down 3 stairs at home while intoxicated and sustaining contusion to her head along with a laceration of her occipital scalp and a laceration over the right hand. She required sutures of her right hand in her scalp. Subsequent x-rays showed she had a fracture of her distal sacrum and coccyx on the left and CT scan of her head suggest the possibility of a subdural hematoma involving the falx. Patient was rather uncooperative in the emergency department refused to wear a cervical collar and actually attempted to leave AGAINST MEDICAL ADVICE. Eventually she was able to be convinced to stay overnight. ER confirmed that her tetanus vaccine was up-to-date. They did primary closure of her scalp and right hand wound with sutures. Dr. Gorman, emergency room attending, consulted with [facility] neurosurgeon on-call to review her CT findings. Dr. Gorman documented that he spoke with Dr. Jeanine Potts who indicated to him that the findings on CT scan were minimal at best but did recommend overnight observation with serial neurologic exams and a repeat CT scan of her head in the morning to evaluate for any new changes. Repeat noncontrast CT scan of the head was performed on the morning of discharge July 05, 2020 and was reported as showing no new acute hemorrhage or acute territorial infarct. There was diminished conspicuity of the falcine density seen anteriorly. Dr. Miguel Pugh was the reading radiologist and his impression was improved appearance of the brain. Improved subcutaneous hematoma/trauma. No new findings. On the morning of discharge patient indicated that she was not having any headache other than some soreness over her scalp sutures. She had no nausea or vomiting no visual disturbances. She was desiring to return home. I went over with her signs and symptoms of worsening head concussion and symptoms of subdural bleeding including severe nausea, severe headaches, intractable vomiting, blurred vision, confusion, slurred speech, severe tiredness and inability to concentrate. I told her she should not return to work until she sees her primary care provider next week. I recommend that she have the sutures removed in 7 to 10 days. She should keep the wounds clean and can use soap and water but should not submerge her head. She is to avoid alcohol and she should avoid performing any dangerous tasks that would increase her risk of a fall. She should remain off of any blood thinners or antiplatelet medications such as aspirin. She can use Tylenol as per the instructions on the bottle as needed for pain. Case management was going to make referral for an alcohol counselor. Home Meds and New Rx's Prescriptions: Continued acetaminophen 500 mg capsule 1,000 mg PO Q8H PRN PRN (Reason: pain) Qty: 60 RF: 0 Xulane 150-35 mcg/24 hr patch weekly 1 patch Transdermal QWEEK Qty: 9 RF: 4 nicotine 14 mg/24 hr patch 24 hour 1 patch TD DAILY Qty: 90 RF: 0 nicotine 7 mg/24 hr patch 24 hour 1 patch TD DAILY Qty: 14 RF: 6 albuterol sulfate 90 mcg/actuation HFA aerosol inhaler 1 puff IH Q4H PRN (Reason: shortness of breath or wheezing) Qty: 8 RF: 0 Discontinued ibuprofen 600 mg tablet 600 mg PO Q8H PRN (Reason: pain) Qty: 60 RF: 0 Excedrin Migraine 250-250-65 mg Tablet 1 tab PO Q6H PRNRF: 0 Discharge Instructions Instructions: Care For Your Stitches (DC), Finger Laceration (ED), Post Concussion Syndrome (ED), Head Laceration (ED) Additional Instructions: You should stay off work until you are cleared medically by your primary care provider. You should see your primary care provider this week. Sutures should come out in 7 to 10 days. He should keep your scalp and hand wounds clean with soap and water but avoid submersion. Avoid any tasks that would increase your risk of falls. Avoid the use of aspirin or any blood thinners. You may use Tylenol as directed on the bottle to treat any minor pains. If you develop severe headaches especially if there is associated nausea or vomiting or slurred speech or unusual sleepiness or confusion you should seek immediate medical help. For the next 24 hours you should not be alone but have a family member or close friends stay with you to be alert for any sudden changes in here mental condition. You should avoid all alcohol or sedatives or sleep aids. Referrals: Smitha Bush NP [Primary Care Provider] - (Call the office tomorrow for follow-up appointment this week) Activity:: Activity as Tolerated Equipment/Supplies:: No Equipment Needed Diet:: Normal Diet Discharge Orders Discharge Orders: Discharge Order (Routine); Ordered 07/05/20 Ordered By: Sudhakar Parks DS: Summary Time Spent with Patient providing and/or coordinating discharge services: Greater than 30 minutes Status at Discharge Functional status at discharge: independent ambulation Overall status at discharge: patient is progressing back to baseline Mental Status: mental status grossly normal Speech and Movement: speech and movement normal Mood: congruent mood Affect: normal affect Exam Narrative Exam Narrative: Young female sitting up in her bed very pleasant smiling eager to return home. Speech is clear and coherent there is no facial asymmetry full extraocular motions intact. Scalp has a lot of matted hair with clotted blood to the hair. Blue suture material appears to be intact and the wound is primarily closed. Examination of the right hand reveals laceration that is also been primarily closed with suture material. Her neck is supple with just some minimal tenderness with range of motion testing. Lungs are clear to auscultation heart regular rate and rhythm. Thoracic and lumbar spine are nontender to palpation. Left lower sacrum at the coccygeal junction is tender to palpation. Psych Mental Status: mental status grossly normal Speech and Movement: speech and movement normal Mood: congruent mood Affect: normal affect DS: Data Vitals/I&O Vitals and I&O: Vital Signs Temperature 36.4 C L 07/05/20 10:36 Temperature Source Temporal Artery Scan 07/05/20 10:36 Pulse 98 H 07/05/20 10:36 Pulse 93 H 07/05/20 06:00 Respiratory Rate 07/05/20 10:36 Respiratory Effort 07/05/20 10:36 Respiratory Depth Normal 07/05/20 10:36 Respiratory Pattern Normal 07/05/20 10:36 Blood Pressure 144/95 H 07/05/20 10:36 Blood Pressure Mean 111 07/05/20 10:36 Blood Pressure Position Sitting 07/05/20 10:36 Pulse Oximetry 97 07/05/20 10:36 Oxygen Delivery Method Room Air 07/05/20 10:36 Oxygen Flow Rate 0 07/05/20 10:36 Pain Level 3 07/05/20 10:36 Intake & Output 07/04/20 07/04/20 07/05/20 11:59 23:59 11:59 Intake Total 1480 / 1480 Output Total 1650 / 1650 Balance -170 / -170 Weight 54 kg 62.8 kg Intake: IV 1000 / 1000 Oral 480 / 480 Output: Urine 1650 / 1650 Other: Urine Color Yellow Urine Appearance Clear Urine Odor None Voiding Methods Bedside Commode Data Completed and Pending Labs on day of discharge: Labs from last 24 hours 07/05/20 07/05/20 07/05/20 06:15 06:15 00:30 WBC 12.10 H RBC 4.00 Hgb 12.6 Hct 37.5 MCV 93.8 MCH 31.5 MCHC 33.6 RDW 13.0 Plt Count 265 MPV 9.2 Immature Gran % 0.2 Neutrophils % 78.7 Lymphocytes % 14.0 Monocytes % 6.2 Eosinophils % 0.7 Basophils % 0.2 Nucleated RBC % 0 Absolute Neutrophils 9.52 H Absolute Lymphocytes 1.69 Absolute Monocytes 0.75 Absolute Eosinophils 0.08 Absolute Basophils 0.02 Sodium 137 Potassium 4.1 D Chloride 103 Carbon Dioxide 21.8 Anion Gap 12.2 H BUN 6 L Creatinine 0.7 Estimated GFR/1.73 m2 >= 60.00 Glucose 145 H Calcium 7.8 L Magnesium 1.6 L Total Bilirubin AST ALT Alkaline Phosphatase Total Protein Albumin Urine Opiates Screen Negative Urine Methadone Screen Negative Ur Barbiturates Screen Negative Ur Tricyclics Screen Negative Ur Amphetamines Screen Negative U Benzodiazepines Scrn Negative Urine Cocaine Screen Negative Ur THC Screen Positive A Ethyl Alcohol < 3.0 COVID-19 Source SARS-CoV-2 (PCR) 07/05/20 07/04/20 07/04/20 00:30 22:00 22:00 WBC 10.83 H RBC 4.36 Hgb 13.9 Hct 40.8 MCV 93.6 MCH 31.9 MCHC 34.1 RDW 12.8 Plt Count 258 MPV 8.8 Immature Gran % 0.5 Neutrophils % 57.5 Lymphocytes % 31.3 Monocytes % 7.9 Eosinophils % 2.2 Basophils % 0.6 Nucleated RBC % 0 Absolute Neutrophils 6.23 Absolute Lymphocytes 3.39 Absolute Monocytes 0.86 H Absolute Eosinophils 0.24 Absolute Basophils 0.06 Sodium 134 L Potassium 3.4 L Chloride 98 Carbon Dioxide 25.1 Anion Gap 10.9 BUN 7 Creatinine 0.8 Estimated GFR/1.73 m2 >= 60.00 Glucose 107 H Calcium 8.0 L Magnesium Total Bilirubin 0.4 AST 17 ALT 19 Alkaline Phosphatase 88 Total Protein 7.3 Albumin 3.6 Urine Opiates Screen Urine Methadone Screen Ur Barbiturates Screen Ur Tricyclics Screen Ur Amphetamines Screen U Benzodiazepines Scrn Urine Cocaine Screen Ur THC Screen Ethyl Alcohol 219.6 COVID-19 Source Nasal/nares SARS-CoV-2 (PCR) Negative [facility] Medical History (Updated 07/05/20 @ 11:00 by Sudhakar Parks) Alcohol abuse Attention deficit hyperactivity disorder, combined type Cigarette smoker Contraceptive surveillance Febrile seizures Surgical History No significant past surgical history Family History Mother Diabetes Hypertension Depression Father Emphysema lung Sister Epilepsy Asthma Depression Hypertension Sister No problems noted. Sister No problems noted. Sister No problems noted. Brother No problems noted. Brother No problems noted. Daughter No problems noted. Maternal Grandfather No problems noted. Maternal Grandmother No problems noted. Paternal Grandfather No problems noted. Paternal Grandmother No problems noted. Social History Smoking/Tobacco Use Status: Current every day Tobacco: How many years used: 16 Quit status: has quit before Smoking risk assessment performed?: Yes Alcohol Intake: current Alcohol Intake frequency: a few times a week Alcohol type: beer Drug use: Never Substance use type: does not use Current gender identity: female Do you feel safe at home: Yes Do you feel safe in your relationship?: Yes History History 2 Para 1 Hx # Term Pregnancies Multiple births Hx # Pregnancies Ectopic pregnancies AB induced 1 Hx Number of Living Children 1 AB spontaneous
--- NOTE | 2020-07-05 12:54 | NUR.NOTE ---
At 12:00 RN cleans both of patient's hands with soap and water and then applies telfa to right wrist and wraps same with gauze wrap. Discharge paperwork is reviewed with patient as well and 18 gauge IV is dc'd from right AC. Patient is stable and in good spirits.Nursing Note:
== END 2020-07-05 12:10 | disposition home or self-care (01) ==
LOC: ER 07-05 00:32 → ICU 07-05 01:19
PROVIDERS: Admitting Provider Internal Medicine; Emergency Provider Student in an Organized Health Care Education/Training Program; PCP Nurse Practitioner Family; Visit Provider Internal Medicine
DX: S32.19XA Other fracture of sacrum, initial encounter for closed fracture (principal); S32.2XXA Fracture of coccyx, initial encounter for closed fracture; S61.411A Laceration without foreign body of right hand, initial encounter; R93.0 Abnormal findings on diagnostic imaging of skull and head, not elsewhere classified; S01.01XA Laceration without foreign body of scalp, initial encounter; W10.8XXA Fall (on) (from) other stairs and steps, initial encounter; F10.129 Alcohol abuse with intoxication, unspecified; F17.210 Nicotine dependence, cigarettes, uncomplicated; F90.2 Attention-deficit hyperactivity disorder, combined type
CPT/HCPCS: 12001; 36415; 80048; 80053; 80307; 81025; 87635; 96360; 96361; 97161; 99220; 99226; 99239; 99285; 70450; 72125; 73130; 74176; 80320; 83735; 85025; 99236; G0378

== ENCOUNTER 2021-04-18 10:50 | Emergency (ER) | payer MEDICAID, SELFPAY ==
[2021-04-18 10:56] VITALS: BP 147/101; PULSE 116; RESP 16; TEMP 36.8; O2SAT 96
--- NOTE | 2021-04-18 11:17 | ED.GENADUL_ITS ---
Discharge Plan Disposition Patient Disposition: HOME Condition: Improving Discharge Details Clinical Impression: Spasm of lumbar paraspinous muscle Primary Care Provider: Smitha Bush ED Provider: Fabián Contreras Home Meds and New Rx's Prescriptions: New diazepam [Valium] 5 mg tablet 5 mg PO BID PRN (Reason: muscle spasm) Qty: 7 RF: 0 Continued escitalopram oxalate [Lexapro] 10 mg tablet 10 - 20 mg PO DAILY Qty: 90 RF: 0 hydroxyzine HCl 25 mg tablet 25 mg PO TID PRN (Reason: anxiety) Qty: 90 RF: 0 Xulane 150-35 mcg/24 hr patch weekly 1 patch Transdermal QWEEK Qty: 9 RF: 4 albuterol sulfate 90 mcg/actuation HFA aerosol inhaler 1 puff IH Q4H PRN (Reason: shortness of breath or wheezing) Qty: 8 RF: 0 Discharge Instructions Instructions: Muscle Spasm (ED) Additional Instructions: Home to rest. Small, equal sips of fluid so that she maintain good hydration. Off work as per enclosed note. Please follow-up with physical therapy. May use Valium as prescribed, if needed for back spasm. You may continue Tylenol and ibuprofen as well. Return to the ER for any acute concerns. Stand Alone Forms: Work Release, Physical Therapy Referral Medical Decision Making 35-year-old female presents from home with 6 days of left back pain and spasm that began while lifting and with movement at work. There was no heavy load and she did not fall or injure herself. She has reproducible back pain and spasm on exam, history of same in the past. We will treat her with Valium, Lidoderm patch and physical therapy. She is stable and appropriate for discharge to home. Do not feel that skeletal imaging is indicated. Discussed with her home care and return precautions. HPI General Mode of arrival: ambulatory . Date/Time Provider Initiated Documentation: 04/18/21 10:51 . Limitations to Documentation: no limitations . Information obtained by: patient and family . History of Present Illness 35 year old F presents to the emergency department with the chief complaint of Left back pain and spasm for 6 days, described as moderate, Quality is described as dull and constant, and is localized to the back and left. Patient reports no radiation. Patient started experiencing this day(s) and it has been constant. Rest improves symptom(s), Movement worsens symptoms . Patient notes denies chest pain, cough, shortness of breath, syncope and weakness. Patient did receive the following treatments prior to arrival, NSAID and heat therapy Related Data Home Medications Medication Instructions Recorded Confirmed albuterol sulfate 1 puff IH Q4H PRN #8 gm 05/05/18 04/18/21 escitalopram oxalate 10 mg tablet 10 - 20 mg PO DAILY #90 tab 11/13/20 04/18/21 hydroxyzine HCl 25 mg tablet 25 mg PO TID PRN #90 tab 11/13/20 11/13/20 norelgestromin 150 mcg-e.estradiol 1 patch TRANSDERMAL QWEEK #9 each 11/13/20 04/18/21 35 mcg/24 hr weekly transderm patch diazepam [Valium] 5 mg PO BID PRN #7 tab 04/18/21 Previous Rx's Medication Instructions Recorded albuterol sulfate 1 puff IH Q4H PRN #8 gm 05/05/18 escitalopram oxalate 10 mg tablet 10 - 20 mg PO DAILY #90 tab 11/13/20 hydroxyzine HCl 25 mg tablet 25 mg PO TID PRN #90 tab 11/13/20 norelgestromin 150 mcg-e.estradiol 1 patch TRANSDERMAL QWEEK #9 each 11/13/20 35 mcg/24 hr weekly transderm patch diazepam [Valium] 5 mg PO BID PRN #7 tab 04/18/21 Allergies Allergy/AdvReac Type Severity Reaction Status Date / Time Penicillins Allergy Unknown Skin Rash Verified 04/18/21 11:03 amoxicillin [Amoxicillin] Allergy Skin Rash Verified 04/18/21 11:03 Iodinated Contrast Media Allergy Hives Verified 04/18/21 11:03 [Iodinated Contrast- Oral and IV Dye] benzonatate AdvReac Intermediate Nausea and Verified 04/18/21 11:03 vomiting General Stated Complaint: Nk/Back Pain LAYNE: 3 Review of Systems Narrative: No weakness or numbness. No rash. No change to bowel or bladder habits. No weakness or numbness. 7 systems reviewed and otherwise negative PFSH All Active Problems Spasm of lumbar paraspinous muscle (Acute) Generalized anxiety disorder (Chronic) Depressive disorder (Chronic) Alcohol use disorder (Chronic) Contraceptive surveillance (Acute) Cigarette smoker (Chronic) Medical History Febrile seizures Surgical History No significant past surgical history Family History Mother Diabetes Hypertension Depression Father Emphysema lung Sister Epilepsy Asthma Depression Hypertension Sister No problems noted. Sister No problems noted. Sister No problems noted. Brother No problems noted. Brother No problems noted. Daughter No problems noted. Maternal Grandfather No problems noted. Maternal Grandmother No problems noted. Paternal Grandfather No problems noted. Paternal Grandmother No problems noted. Social History Smoking/Tobacco Use Status: Current every day Tobacco: How many years used: 16 Smoking risk assessment performed?: Yes Alcohol Intake: current Alcohol Intake frequency: 0-2 drinks per day Alcohol type: beer Drug use: Never Substance use type: does not use Current gender identity: female Do you feel safe at home: Yes Do you feel safe in your relationship?: Yes History History 2 Para 1 Hx # Term Pregnancies Multiple births Hx # Pregnancies Ectopic pregnancies AB induced 1 Hx Number of Living Children 1 AB spontaneous Exam Narrative Exam Narrative: GEN: awake, alert, oriented 3. Pleasant, well groomed, interactive. HEAD: Normocephalic, atraumatic EYES: PERRL, EOMI NECK: Full ROM, no MARY, no menigismus CHEST/RESP: Nontender, clear to auscultation bilateral, no wheeze/rhonchi/rales CARDIOVASCULAR: RRR, no murmur, rub alex. 2+ Rad pulse bilateral ABDOMEN: Soft, nontender, no mass. +Bowel sounds Back: Left paraspinous muscular spasm and tenderness present. No midline step- off deformity. EXT: Full ROM, no edema, no rash. Sensation intact throughout including saddle distribution. Neuro: Grossly normal neurologic exam, conversant, interactive. Psych: Speech fluent, thoughts congruent, affect normal Course Vital Signs Vital signs: Vital Signs Temperature 36.8 C 04/18/21 10:56 Pulse 116 H 04/18/21 10:56 Respiratory Rate 16 04/18/21 10:56 Blood Pressure 147/101 H 04/18/21 10:56 Pulse Oximetry 96 04/18/21 10:56 Temperature 36.8 C 04/18/21 10:56 Temperature Source Skin 04/18/21 10:56 Pulse 116 H 04/18/21 10:56 Respiratory Rate 16 04/18/21 10:56 Respiratory Effort 04/18/21 10:56 Blood Pressure 147/101 H 04/18/21 10:56 Blood Pressure Position Sitting 04/18/21 10:56 Pulse Oximetry 96 04/18/21 10:56 Pain Level 8 04/18/21 10:56 PAWSS Have you Been Recently Intoxicated or Drunk Within the Last 30 days?: Yes Have you Ever Experienced Previous Episodes of Alcohol Withdrawal?: No Have you ever Experienced Withdrawal Seizures?: No Have you ever Experienced Delirium Tremens(DT)s?: No Have you ever undergone Alcohol Rehabilitation Treatment (i.e, inpt ot outpatient treatment programs)?: No Have you ever Experienced Blackouts?: No Have you ever Combined Alcohol with other Downers within the last 90 days?: No Have you ever Combined Alcohol with any other Substance of Abuse during the last 90 days?: No Positive Blood Alcohol level on Presentation? [PCS.BAL]: No Evidence of Increased Autonomic Activity (i.e. HR>120, tremor, sweating, agitati on, nausea)?: No Result: 1
[2021-04-18] MEDS: diazePAM 5 MG TAB PO (11:30)
[2021-04-18] MEDS: Lidocaine 5% Patch 1 PATCH TP (11:30)
== END 2021-04-18 11:42 | disposition home or self-care (01) ==
PROVIDERS: Emergency Provider Emergency Medicine; PCP Nurse Practitioner Family
DX: M62.830 Muscle spasm of back (principal); X50.1XXA Overexertion from prolonged static or awkward postures, initial encounter; Y99.0 Civilian activity done for income or pay
CPT/HCPCS: 99283

== ENCOUNTER 2021-06-27 20:55 | Emergency (ER) | payer MEDICAID, SELFPAY ==
[2021-06-27] VITALS (12 sets, daily range): BP systolic 153–171; BP diastolic 86–103; PULSE 79–90; RESP 16; TEMP 36.3; O2SAT 98–100
--- NOTE | 2021-06-27 21:00 | RT.EKG_ITS ---
APPROVED REPORT Exam: Resting ECG Reason for Exam: vomiting Patient Location: E HR:84 bpm ECG Measurements Heart Rate 84 AXIS MN 160 P 68 QRSd 106 QRS 46 QT 406 T 34 QTc 481 Conclusion Sinus rhythm...normal P axis, V-rate 60- 99 Physician: no stemi
--- NOTE | 2021-06-27 21:08 | DI.CT_ITS ---
Exam(s) CT ABDOMEN PELVIS WO EXAM: CT ABDOMEN PELVIS WO CLINICAL HISTORY: epigastric pain, RUQ pain, vomiting. TECHNIQUE: Imaging Protocol: Axial computed tomography images with coronal and sagittal reformatted images were created and reviewed CONTRAST MATERIAL: Intravenous: none Oral: None COMPARISON: CT CT ABDOMEN PELVIS WO from 07/04/2020 FINDINGS: VISUALIZED LUNG BASES: No nodules nor pleural effusions evident. ABDOMEN: There is no ascites. LIVER: There are no obvious focal hepatic lesions evident of this noninfused study. GALLBLADDER/BILIARY: No obvious acute gallbladder pathology. CBD is not dilated. PANCREAS: No evidence of pancreatic mass nor dilatation of the pancreatic duct. SPLEEN: Spleen is not enlarged. No obvious intrasplenic lesions. ADRENALS: There are no significant adrenal masses. KIDNEYS:No cysts evident. No solid renal masses. No calculi nor hydronephrosis. . ABDOMINAL AORTA: Abdominal aorta is not enlarged. LYMPH NODES: There is no retroperitoneal nor paraaortic adenopathy. ABDOMINAL WALL: No evidence of significant anterior abdominal wall nor inguinal hernia. GI: There is no evidence of bowel obstruction, free air, nor abscess. Transverse colon is collapsed difficult to assess. PELVIS: LYMPH NODES: There is no intrapelvic nor inguinal adenopathy. GI: No evidence of appendicitis.No evidence of sigmoid diverticulitis. URINARY BLADDER: No calculi nor obvious masses evident REPRODUCTIVE: Unremarkable OSSEOUS: No significant osseous lesions. There has been healing of the lower sacral fracture. No ne w fractures identified Disc space narrowing L4-5 level partial fusion. Posterior osseous elements at this level are fused, including the bilateral facet joints. IMPRESSION: 1. Compared to the prior CT scan of June 2020 there has been healing of the previously described sac ral fracture 2. A previously described lesion in the right hepatic lobe is difficult to visualize on this non cont rast study. This was apparently prior shown to be a probable hemangioma. 3. Transverse colon is collapsed and difficult to evaluate. RADIATION DOSE DELIVERED: 715.66mGy.cm Total DLP DATA REPOSITORY: All CT scans at this facility are submitted to the National Radiology Data Registry (NRDR) Dose Index Registry (DIR) with the [employer] (A[employer]). RADIATION OPTIMIZATION: All CT scans at this facility use at least one of these dose optimization te chniques: automated exposure control; mA and/or kV adjustment per patient size (includes targeted exa ms where dose is matched to clinical indication); or iterative reconstruction.
--- NOTE | 2021-06-27 21:10 | ED.GENADUL_ITS ---
Discharge Plan Disposition Patient Disposition: HOME Condition: Good Discharge Details Clinical Impression: Nausea & vomiting Primary Care Provider: Smitha Bush ED Provider: Cesar Gorman Home Meds and New Rx's Prescriptions: Continued hydroxyzine HCl 25 mg tablet 25 mg PO TID PRN (Reason: anxiety) Qty: 90 0RF Xulane 150-35 mcg/24 hr patch weekly 1 patch Transdermal QWEEK Qty: 9 4RF acetaminophen 500 mg tablet 1,000 mg PO BID PRN0RF lidocaine 4 % adhesive patch,medicated 1 patch topical DAILY PRN0RF cyclobenzaprine 5 mg tablet 5 mg PO TID PRN (Reason: muscle spasm) Qty: 60 0RF Rx Instructions: Take 1 tablet by mouth three times a day as needed for back pain albuterol sulfate 90 mcg/actuation HFA aerosol inhaler 1 puff IH Q4H PRN (Reason: shortness of breath or wheezing) Qty: 8 0RF escitalopram oxalate [Lexapro] 10 mg tablet 10 - 20 mg PO DAILY PRN0RF Rx Instructions: Take 1 tablet daily for one week and if doing well, may increase to 2 tablets daily Discharge Instructions Instructions: Acute Nausea and Vomiting (ED) Additional Instructions: At this time your CAT scan has returned and is very reassuring. Your electrolytes from your blood work, your blood counts, and your kidney function are all stable. There is no evidence of pancreatitis. You were dehydrated, so please continue to drink small sips of water at home. Avoid any fatty foods, greasy foods, or tomato-based products for the next 48 to 72 hours and stick with a bland diet of rice, applesauce, bananas, crackers, and oatmeal. There was some evidence of some slight thickening of your colon, which was likely just related to your current bowel movements. Your symptoms at this time are inconsistent with colitis. However, if you develop continued or worsening abdominal pain spread throughout your abdomen please return immediately for reassessment as you might need antibiotics then. If you notice any worsening of your symptoms, or any new symptoms such as vomiting, diarrhea, fever, chills, shortness of breath, chest pain, numbness, weakness, or fainting , please return immediately to the emergency department for reevaluation. Please follow up with your primary care provider as soon as possible for reassessment and reevaluation. As always, it was a pleasure pa rticipating in your medical care today. Referrals: Smitha Bush NP [Primary Care Provider] - Medical Decision Making 35-year-old female with a past medical history of previous alcohol use, depression, ADHD, febrile seizures as a child, who presents today for vomiting and abdominal pain. Patient states that starting at noon she has had multiple episodes of nonbloody emesis. Nothing is seem to help. She has not been drinking much because of this. She denies chest pain or shortness of breath. Pain is achy in nature and constant. It is in the epigastric region primarily. No radiation to the scapula or back. No lower abdominal tenderness, vaginal discharge or other complaint. Patient does admit to drinking 3x 24 ounce alcoholic beverages yesterday, and then drinking some alcohol today to see if it would make her symptoms better, did not. She denies any other complaints at this time. No other modifying factors. No other sick contacts. Physical exam shows mild epigastric tenderness. No evidence of surgical abdomen. Dry mucous membranes. Differential is highest for pancreatitis after her recent alcohol binge, however cholecystitis or biliary colic is certainly also on the differential. Patient has no subcutaneous crepitus, no retching. Symptoms appear inconsistent with Boer[place]ave tear. Will get CT imaging of the abdomen, rehydrate, give antiemetics, monitor closely and reassess. 11:43 PM Laboratory work-up is returned reassuring, electrolytes stable, renal function good. No white count, bandemia. On reassessment patient feels much better. She is tolerating p.o. and ice chips well. Abdominal pain and nausea sided. She feels ready to go home. CT scan has returned, demonstrates normal-appearing gallbladder, no gallstones or biliary dilatation. Colon does demonstrate questionable thickening, but this is likely related to incomplete distention of segment. Repeat exam does not demonstrate clinical evidence of colitis. No generalized lower or lateral abdominal tenderness. No white count or fever. No indication for antibiotics at this time. Patient has received a liter of normal saline. Will give Zofran to go home. Diagnosis mild gastritis likely secondary to alcohol use. No evidence of pancreatitis or cholecystitis. I have extensively reviewed the treatment plan and discharge instructions with the patient and their family. I have addressed all patient concerns at this time. The patient and family was made aware of what symptoms to monitor for that would warrant a return to the emergency department. Discussed the plan with the patient and family, they demonstrate verbal understanding and agreement with our assessment and plan at this time. The documentation in this chart was dictated using [employer] dictation software. Please excuse any dictation errors. FINDINGS: Lungs: Lung bases clear. Liver: Grossly unremarkable unenhanced liver. Gallbladder and bile ducts: Normal appearing gallbladder. No calcified gallstones. No biliary dilatation. Pancreas: Grossly unremarkable unenhanced pancreas. Spleen: Grossly unremarkable unenhanced spleen. Adrenal glands: Normal appearing adrenal glands. Kidneys and ureters: Grossly unremarkable unenhanced kidneys. No radiopaque urinary tract stones, hydronephrosis, or evidence of recent stone passage. Stomach and bowel: No oral contrast. Stomach partially decompressed. No small bowel dilatation to suggest obstruction. Colon largely well evacuated of fecal material. Apparent mural thickening through collapsed segments of the transverse, descending, and sigmoid colon. Artifact of incomplete distention? Segments of acute colitis? Clinical correlation recommended. No evidence of focal acute diverticulitis. Appendix: Appendix partially obscured but normal in caliber and appearance through its visualized portion. Intraperitoneal space: No gross ascites or free air. Vasculature: Normal caliber abdominal aorta. Lymph nodes: No pathologically enlarged mesenteric, retroperitoneal, or pelvic sidewall lymph nodes. Urinary bladder: Urinary bladder partially collapsed but grossly unremarkable, as seen. Reproductive: Uterus and ovaries not well evaluated but normal in size. Bones/joints: No acute fracture seen among the bones of the abdomen or pelvis. 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 Soft tissues: No significant ventral or inguinal hernia. IMPRESSION: 1. Normal-appearing gallbladder. No calcified gallstones or biliary dilatation. 2. Colon largely well evacuated of fecal material. Apparent mural thickening through collapsed segments of the transverse, descending, and sigmoid colon. Artifact of incomplete distention or segments of acute colitis could have this appearance. Clinical correlation is r ecommended. Otherwise, no acute bowel pathology demonstrated. Thank you for allowing us to participate in the care of your patient. Dictated and Authenticated by: Peter Morton MD 06/27/2021 10:56 PM Eastern Time ([place] & [place]) HPI General Date/Time Provider Initiated Documentation: 06/27/21 20:59 . HPI Narrative: 35-year-old female with a past medical history of previous alcohol use, depression, ADHD, febrile seizures as a child, who presents today for vomiting and abdominal pain. Patient states that starting at noon she has had multiple episodes of nonbloody emesis. Nothing is seem to help. She has not been drinking much because of this. She denies chest pain or shortness of breath. Pain is achy in nature and constant. It is in the epigastric region primarily. No radiation to the scapula or back. No lower abdominal tenderness, vaginal discharge or other complaint. Patient does admit to drinking 3x 24 ounce alcoholic beverages yesterday, and then drinking some alcohol today to see if it would make her symptoms better, did not. She denies any other complaints at this time. No other modifying factors. No other sick contacts. Related Data Home Medications Medication Instructions Recorded Confirmed albuterol sulfate 90 mcg/actuation 1 puff IH Q4H PRN #8 gm 05/05/18 06/27/21 aerosol inhaler hydroxyzine HCl 25 mg tablet 25 mg PO TID PRN #90 tab 11/13/20 06/27/21 norelgestromin 150 mcg-e.estradiol 1 patch TRANSDERMAL QWEEK #9 each 11/13/20 06/27/21 35 mcg/24 hr weekly transderm patch (Xulane) acetaminophen 500 mg tablet 1,000 mg PO BID PRN tab 05/07/21 06/27/21 cyclobenzaprine 5 mg tablet 5 mg PO TID PRN #60 tab 05/07/21 06/27/21 lidocaine 4 % topical patch 1 patch TOPICAL DAILY PRN 05/07/21 06/27/21 escitalopram oxalate 10 mg tablet 10 - 20 mg PO DAILY PRN 06/27/21 06/27/21 (Lexapro) Previous Rx's Medication Instructions Recorded albuterol sulfate 90 mcg/actuation 1 puff IH Q4H PRN #8 gm 05/05/18 aerosol inhaler hydroxyzine HCl 25 mg tablet 25 mg PO TID PRN #90 tab 11/13/20 norelgestromin 150 mcg-e.estradiol 1 patch TRANSDERMAL QWEEK #9 each 08/06/21 35 mcg/24 hr weekly transderm patch (Xulane) cyclobenzaprine 5 mg tablet 5 mg PO TID PRN #60 tab 05/07/21 Allergies Allergy/AdvReac Type Severity Reaction Status Date / Time Penicillins Allergy Unknown Skin Rash Verified 06/27/21 21:09 amoxicillin [Amoxicillin] Allergy Skin Rash Verified 06/27/21 21:09 Iodinated Contrast Media Allergy Hives Verified 06/27/21 21:09 [Iodinated Contrast- Oral and IV Dye] benzonatate AdvReac Intermediate Nausea and Verified 06/27/21 21:09 vomiting General Stated Complaint: Nausea/Vomit/Diar LAYNE: 3 Review of Systems All systems reviewed & are unremarkable except as noted in HPI and below PFSH All Active Problems Nausea & vomiting (Acute) Generalized anxiety disorder (Chronic) Depressive disorder (Chronic) Alcohol use disorder (Chronic) Contraceptive surveillance (Acute) Cigarette smoker (Chronic) Medical History Febrile seizures Surgical History No significant past surgical history Family History Mother Diabetes Hypertension Depression Father Emphysema lung Sister Epilepsy Asthma Depression Hypertension Sister No problems noted. Sister No problems noted. Sister No problems noted. Brother No problems noted. Brother No problems noted. Daughter No problems noted. Maternal Grandfather No problems noted. Maternal Grandmother No problems noted. Paternal Grandfather No problems noted. Paternal Grandmother No problems noted. Social History Smoking/Tobacco Use Status: Current every day Tobacco: How many years used: 16 Smoking risk assessment performed?: Yes Alcohol Intake: current Alcohol Intake frequency: 0-2 drinks per day Alcohol type: beer Drug use: Occasionally Substance use type: marijuana Current gender identity: female Do you feel safe at home: Yes Do you feel safe in your relationship?: Yes History History 2 Para 1 Hx # Term Pregnancies Multiple births Hx # Pregnancies Ectopic pregnancies AB induced 1 Hx Number of Living Children 1 AB spontaneous Exam Narrative Exam Narrative: 1.Const: Well-nourished, Well-developed, appearing stated age 2.Eyes: PERRL, no conjunctival injection, and symmetrical lids. 3.ENT: Atraumatic external nose and ears. Dry MM. Neck: Symmetric, trachea midline, No thyromegaly. 4.CVS: +S1/S2, No murmurs or gallops. Peripheral pulses 2+ and equal in all extremities. Brisk capillary refill in all extremities. 5.RESP: Unlabored respiratory effort. Clear to auscultation bilaterally. No wheezes rales or rhonchi 6.GI: Soft, not distended, no guarding or rebound. Mild epigastric tenderness, mild pain in the right upper quadrant. Negative Sánchez sign. No pain at McBurney's point. No lower abdominal tenderness. 7.MSK: Normocephalic/Atraumatic, Extremities w/o deformity or ttp No cyanosis or clubbing, Normal movement of all extremities 8.Skin: Warm, Dry. No rashes or lesions. 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 Sensation grossly intact, no focal neurologic deficits. 10.Psych: (AAO) x3. Appropriate mood and affect Course Vital Signs Vital signs: Vital Signs Temperature 36.3 C L 06/27/21 21:04 Pulse 90 06/27/21 21:04 Respiratory Rate 16 06/27/21 21:04 Blood Pressure 171/100 H 06/27/21 21:04 Pulse Oximetry 100 06/27/21 21:04 Temperature 36.3 C L 06/27/21 21:04 Pulse 90 06/27/21 21:04 Respiratory Rate 16 06/27/21 21:04 Blood Pressure 171/100 H 06/27/21 21:04 Pulse Oximetry 100 06/27/21 21:04 Pain Level 9 06/27/21 21:04
[2021-06-27] MEDS: Normal Saline 1,000 ML 1000 ML IV (21:14)
[2021-06-27] MEDS: Ondansetron 4 MG/2 ML VIAL IVP ×2 (21:15→23:41)
[2021-06-27 21:29] LABS: Abs Immature Grans 0.04 10^3/uL (0.0-0.06); Absolute Basophil Count 0.05 10^3/uL (0.0-0.2); Absolute Lymphocyte Count 0.99 10^3/uL (1.2-3.4); Absolute Monocyte Count 0.33 10^3/uL (0.1-0.8); Basophils % 0.5; HCT 42.8 % (36.0-46.0); HGB 14.5 g/dL (11.2-15.7); Immature Grans % 0.4; Lymphocytes % 9.4; MCH 30.9 pg (27.0-33.0); MCHC 33.9 % (32.0-36.0); MCV 91.3 fL (80-95); Monocytes % 3.1; Neutrophils % 86.6; Nucleated RBC 0 %; Platelet Count 355 10^3/uL (130-400); RBC 4.69 10^6/uL (3.93-5.22); RDW 15.2 % (11.7-14.6); RDW-SD 50.8 fL; WBC 10.51 10^3/uL (4.4-10.8)
[2021-06-27 21:32] LABS: Bilirubin Negative (Negative); Blood Trace-intact (Negative); Clarity Sl Cloudy (Clear); Glucose >=1000 mg/dL (Negative); Ketones 80 mg/dL (Negative); Leukocyte Esterase Negative (Negative); Nitrite Negative (Negative); Specific Gravity 1.025 (1.005-1.025); pH 6.5 (5-8)
[2021-06-27 21:47] LABS: Bacteria Few HPF (Negative); C & S Indicated? No; Casts Negative LPF (Negative); Crystals Negative HPF (Negative); Epithelial Cells Many HPF (Negative); Mucus Negative (Negative); RBC 0-2 HPF (0-2); WBC 0-2 HPF (0-5)
[2021-06-27] MEDS: MORPHine 4 MG/ML SYR IVP (21:50)
[2021-06-27 21:57] LABS: ALT 16 U/L (14-59); AST 18 U/L (15-37); Albumin 4.2 g/dL (3.4-5.0); Alkaline Phosphatase 91 U/L (46-116); Anion Gap 11.6 mmol/L (3-11); BUN 5 mg/dL (7-18); Bilirubin, Total 0.6 mg/dL (0.2-1.0); CO2 24.4 mmol/L (21.0-32.0); CREATININE 0.8 mg/dL (0.55-1.02); Calcium 8.7 mg/dL (8.5-10.1); Chloride 95 mmol/L (98-107); Glucose 194 mg/dL (74-106); Lipase 45 U/L (73-393); Potassium 3.4 mmol/L (3.5-5.1); Sodium 131 mmol/L (136-145); Total Protein 8.4 g/dL (6.4-8.2)
[2021-06-27 22:05] LABS: ETHANOL BLOOD < 3.0 mg/dL (<10)
[2021-06-27] MEDS: Metoclopramide 10 MG/2 ML VIAL 20 MG IVP (22:41)
--- NOTE | 2021-06-27 22:57 | DI.VRAD_ITS ---
PROCEDURE INFORMATION: Exam: CT Abdomen And Pelvis Without Contrast Exam date and time: 06/27/2021 9:46 PM Age: 35 years old Clinical indication: Abdominal pain; Localized; Right upper quadrant (ruq); Patient HX: Epigastric pain, ruq pain, vomiting TECHNIQUE: Imaging protocol: Computed tomography of the abdomen and pelvis without contrast. Radiation optimization: All CT scans at this facility use at least one of these dose optimization techniques: automated exposure control; mA and/or kV adjustment per patient size (includes targeted exams where dose is matched to clinical indication); or iterative reconstruction. COMPARISON: CT ABDOMEN PELVIS WO 07/04/2020 10:28 PM FINDINGS: Lungs: Lung bases clear. Liver: Grossly unremarkable unenhanced liver. Gallbladder and bile ducts: Normal appearing gallbladder. No calcified gallstones. No biliary dilatation. Pancreas: Grossly unremarkable unenhanced pancreas. Spleen: Grossly unremarkable unenhanced spleen. Adrenal glands: Normal appearing adrenal glands. Kidneys and ureters: Grossly unremarkable unenhanced kidneys. No radiopaque urinary tract stones, hydronephrosis, or evidence of recent stone passage. Stomach and bowel: No oral contrast. Stomach partially decompressed. No small bowel dilatation to suggest obstruction. Colon largely well evacuated of fecal material. Apparent mural thickening through collapsed segments of the transverse, descending, and sigmoid colon. Artifact of incomplete distention? Segments of acute colitis? Clinical correlation recommended. No evidence of focal acute diverticulitis. Appendix: Appendix partially obscured but normal in caliber and appearance through its visualized portion. Intraperitoneal space: No gross ascites or free air. Vasculature: Normal caliber abdominal aorta. Lymph nodes: No pathologically enlarged mesenteric, retroperitoneal, or pelvic sidewall lymph nodes. Urinary bladder: Urinary bladder partially collapsed but grossly unremarkable, as seen. Reproductive: Uterus and ovaries not well evaluated but normal in size. Bones/joints: No acute fracture seen among the bones of the abdomen or pelvis. 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 Soft tissues: No significant ventral or inguinal hernia. IMPRESSION: 1. Normal-appearing gallbladder. No calcified gallstones or biliary dilatation. 2. Colon largely well evacuated of fecal material. Apparent mural thickening through collapsed segments of the transverse, descending, and sigmoid colon. Artifact of incomplete distention or segments of acute colitis could have this appearance. Clinical correlation is recommended. Otherwise, no acute bowel pathology demonstrated. Dictated and Authenticated by: Peter Morton MD. Ordering:DINA Guerrero MD
[2021-06-27] MEDS: Ondansetron O.D.T. 4 MG TABEF, 3 TABS/BTL PO (23:41)
== END 2021-06-28 00:02 | disposition home or self-care (01) ==
PROVIDERS: Emergency Provider Student in an Organized Health Care Education/Training Program; PCP Nurse Practitioner Family
DX: R11.2 Nausea with vomiting, unspecified (principal); R10.13 Epigastric pain; R10.11 Right upper quadrant pain
CPT/HCPCS: 80053; 81025; 83690; 93005; 96361; 96374; 96375; 96376; 99284; 74176; 80320; 81003; 81015; 85025; 93010; J2270; J2405; J2765

== ENCOUNTER 2021-08-10 10:20 | Emergency (ER) | payer OTHER, MEDICAID, SELFPAY ==
[2021-08-10 10:33] VITALS: BP 173/103; PULSE 120; RESP 20; TEMP 36.5; O2SAT 100
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
== END 2021-08-10 12:37 | disposition home or self-care (01) ==
PROVIDERS: Emergency Provider Physician Assistant; PCP Nurse Practitioner Family
DX: S82.872A Displaced pilon fracture of left tibia, initial encounter for closed fracture (principal); M25.562 Pain in left knee; V43.62XA Car passenger injured in collision with other type car in traffic accident, initial encounter
CPT/HCPCS: 29515; 73562; 99284; 73610; 99283

== ENCOUNTER 2021-08-23 13:57 | Outpatient (CLI) | payer MEDICAID, SELFPAY ==
--- NOTE | 2021-08-23 13:30 | DI.RAD_ITS ---
Exam(s) XR ANKLE LT COMPLETE EXAM: XR ANKLE LT COMPLETE CLINICAL HISTORY: left tibia fracture TECHNIQUE: 2D digital imaging was performed of the left ankle. Three images were obtained. AP, lat eral and oblique views were obtained. COMPARISON: CR XR ANKLE LT COMPLETE from 08/10/2021 FINDINGS: BONES: There has been no change in alignment of the fracture involving the anterior aspect of the tib ial plafond. No new fracture is identified. No bony destructive lesion is seen. JOINTS:The ankle mortise is normally aligned. SOFT TISSUE: Normal. IMPRESSION: Stable anterior tibial fracture. DATA REPOSITORY: RADIATION DOSE DELIVERED:
== END 2021-08-23 13:58 | disposition home or self-care (01) ==
LOC: DIORS 13:57
PROVIDERS: PCP Nurse Practitioner Family; Referring Provider Nurse Practitioner Family; Visit Provider Physician Assistant
DX: S82.202A Unspecified fracture of shaft of left tibia, initial encounter for closed fracture (principal); X58.XXXA Exposure to other specified factors, initial encounter
CPT/HCPCS: 73610

== ENCOUNTER 2021-09-23 11:58 | Outpatient (CLI) | payer MEDICAID, SELFPAY ==
--- NOTE | 2021-09-23 11:45 | DI.RAD_ITS ---
Exam(s) XR ANKLE LT COMPLETE EXAM: XR ANKLE LT COMPLETE CLINICAL HISTORY: F/U L TIBIA FRACTURE. TECHNIQUE: 2D digital imaging was performed. COMPARISON: CR XR ANKLE LT COMPLETE from 08/10/2021 CR XR ANKLE LT COMPLETE from 08/23/2021 FINDINGS: 3 views Fracture site at anterior aspect tibial plafond appears relatively stable although there does appear to be some increasing calcification at level, seen on the lateral view. There is no joint space narr owing nor obvious prominent joint effusion. No other fractures identified. Talar dome appears unrem arkable. IMPRESSION: DATA REPOSITORY: RADIATION DOSE DELIVERED:
== END 2021-09-23 11:59 | disposition home or self-care (01) ==
LOC: DIORS 11:58
PROVIDERS: PCP Nurse Practitioner Family; Referring Provider Nurse Practitioner Family; Visit Provider Student in an Organized Health Care Education/Training Program
DX: S82.872D Displaced pilon fracture of left tibia, subsequent encounter for closed fracture with routine healing (principal); X58.XXXD Exposure to other specified factors, subsequent encounter
CPT/HCPCS: 73610

== ENCOUNTER 2021-11-12 01:07 | Outpatient (CLI) | payer MEDICAID, SELFPAY ==
--- OUTSIDE RECORDS SUMMARY | 2021-11-12 01:28 | XMS_ITS | Encounter Summary ---
:1985 Author Organization [facility] Address [address] [place] [address] Care Team Providers Name Role Phone Unknown, Provider Primary Care Provider Encounter Details Date Type Department Care Team Description 03/18/2020 Lab Requisition [facility] Aftab Galindo tact with and Pathology & O, PharmD (suspected) exposure Laboratory Medicine [address] to other viral - [place], [place] communicable diseases [address] [facility] [id number] [place], [place] [address] Social History Tobacco Use Types Packs/Day Years Used Date Never Assessed Sex Assigned at Date Recorded Not on file documented as of this encounter Discharge Disposition Disposition Code Departure Means Destination Home or Self Care documented in this encounter Plan of Treatment Not on filedocumented as of this encounter Procedures Procedure Name Priority Date/Time Associated Diagnosis Comme nts DO NOT ORDER Today 03/18/2020 9:15 Contact with and Results for this STANDALONE - [facility] EST (suspected) exposure p rocedure are in COVID TEST to other viral the results communicable diseases sectio n. COVID-19 TESTING Today 03/18/2020 9:15 Contact with and Resu lts for this EST (suspected) exposure procedu re are in to other viral the results communicable diseases sectio n. documented in this encounter Results DO NOT ORDER STANDALONE - [facility]OAD COVID TEST (03/18/2020 9:15 EST) COVID-19 rt-PCR NEGATIVE Negative [facility] Result Comment: LABORATORY 2019-novel Coronavirus (2019 -nCoV) not detected by the qRT-PCR assay. Consider testing for other respiratory viruses or re-collecting for 2019-nCoV testing. Note: Optimum timing for peak viral levels du ring infections caused by 20 19-nCoV have not been determined. Collection of multiple specimens from the same patient may be necessary to detect the virus. Limitations Positive results are indicat yissel of active infection with SARS-CoV-2 but do not rule out bacterial infection or co-infection with other viruses. The agent detected may not be the definite cause of diseas e. In addition, detection of viral RNA may not indicate the presence of infectious virus or that SARS-CoV-2 is the causative agent for clinical symptoms. Negative results do not prec lude SARS-CoV-2 infection and should not be used as the sole basis for patient management decisions. Negative results must be combined with clinical observations, patient his tory, and epidemiological in formation. False negative results may also occur if amplification inhibitors are present in the specimen or if inadequate numbers of organisms are present in the specimen. Op timum specimen types and thuy ing for peak viral levels during infections caused by SARS-CoV-2 have not been fully determined. Collection of multiple specimens (types and time points) from the same patient may be necessary to detect the virus. The test was validated for u se with upper respiratory specimens obtained via nasopharyngeal or oropharyngeal swabs in VTM, UTM, M4, M5, M6, saline, and MTM media. The performance of this test has not be en established for other spe cimens. Specimens collected using other FDA recommended Specimen Collection Materials listed in the FDA COVID-19 [employer] communication (July 04, 2019) are pr ocessed with the caveat that they were not all validated for use with this test and the result must be interpreted in this context. Furthermore, a false negative results may occur if a specimen is improperly collected, transported or handled. If the virus mutates in the RT-PCR target region, SARS-CoV-2 may not be detected or may be detected less predictably. Inhibitors or other types of interference may produce a false negative result. An interference study evaluating the effect of common cold medications was not performed. This test is not FDA-cleared but its performance characteristics were established by our CLIA-certified, CAP-accredited, high complexity laboratory in accordance with CLIA regulations, College [employer] (CAP) guidel ortega (Jun 27, 2019), and FDA guidance (Jun 08, 2019). This test is only for use un adriel the Food and Drug Administration's Emergency Use Authorization. Specimen Swab - Nasal (qualifier value) Performing Organization Address City/State/ZIP Code Phon e Number [facility] [place] COVID-19 TESTING (03/18/2020 9:15 EST) COVID-19 rt-PCR NEGATIVE Negative [facility] Result Comment: LABORATORY 2019-novel Coronavirus (2019 -nCoV) not detected by the qRT-PCR assay. Consider testing for other respiratory viruses or re-collecting for 2019-nCoV testing. Note: Optimum timing for peak viral levels du ring infections caused by 20 -nCoV have not been determined. Collection of multiple specimens from the same patient may be necessary to detect the virus. Limitations Positive results are indicat yissel of active infection with SARS-CoV-2 but do not rule out bacterial infection or co-infection with other viruses. The agent detected may not be the definite cause of diseas e. In addition, detection of viral RNA may not indicate the presence of infectious virus or that SARS-CoV-2 is the causative agent for clinical symptoms. Negative results do not prec lude SARS-CoV-2 infection and should not be used as the sole basis for patient management decisions. Negative results must be combined with clinical observations, patient his tory, and epidemiological in formation. False negative results may also occur if amplification inhibitors are present in the specimen or if inadequate numbers of organisms are present in the specimen. Op timum specimen types and thuy ing for peak viral levels during infections caused by SARS-CoV-2 have not been fully determined. Collection of multiple specimens (types and time points) from the same patient may be necessary to detect the virus. The test was validated for u se with upper respiratory specimens obtained via nasopharyngeal or oropharyngeal swabs in VTM, UTM, M4, M5, M6, saline, and MTM media. The performance of this test has not be en established for other spe cimens. Specimens collected using other FDA recommended Specimen Collection Materials listed in the FDA COVID-19 [employer] communication (July 04, 2019) are pr ocessed with the caveat that they were not all validated for use with this test and the result must be interpreted in this context. Furthermore, a false negative results may occur if a specimen is improperly collected, transported or handled. If the virus mutates in the RT-PCR target region, SARS-CoV-2 may not be detected or may be detected less predictably. Inhibitors or other types of interference may produce a false negative result. An interference study evaluating the effect of common cold medications was not performed. This test is not FDA-cleared but its performance characteristics were established by our CLIA-certified, CAP-accredited, high complexity laboratory in accordance with CLIA regulations, [employer] of [employer] an [employer]ologists (CAP) guidel ortega (Jun 27, 2019), and FDA guidance (Jun 08, 2019). This test is only for use un adriel the Food and Drug Administration's Emergency Use Authorization. 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
--- OUTSIDE RECORDS SUMMARY | 2021-11-12 01:28 | XMS_ITS | Clinical Summary ---
:1985 Author Organization [facility] Address [address] [place] [address] Care Team Providers Name Role Phone Unknown, Provider Primary Care Provider Social History Tobacco Use Types Packs/Day Years Used Date Never Assessed Sex Assigned at Date Recorded Not on file Plan of Treatment Not on file Insurance Payer Benefit Plan Subscriber ID Effective Phone Address Typ e / Group Dates MEDICAID ACO MEDICAID ACO [id number] 2021-Pres [phone] [address] Medicaid [place] ent [address] [place] [address] Awa Shrestha Personal/Famil Self 1985 [address] [place] [id number] Awa Shrestha Personal/Famil Self 1985 20 [address] [place]Home[place] [id number] Awa Shrestha Personal/Famil Self 1985 20 00 [address]Home[place] [phone] Awa Shrestha Personal/Famil Self 1985 20 00 [address]Home[place] [id number] 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
--- OUTSIDE RECORDS SUMMARY | 2021-11-12 01:28 | XMS_ITS | Encounter Summary ---
:1985 Author Organization [facility] Address [address] [place] [address] Care Team Providers Name Role Phone Unavailable Primary Care Provider Unavailable Encounter Details Date Type Department Care Team Description 09/11/2010 Historical Results [facility] - Scotty Stuart, Only [facility] Lab - Main [facility] [address],[place] [address] [address] [place], [place] [address] Social History Tobacco Use Types Packs/Day Years Used Date Never Assessed Sex Assigned at Date Recorded Not on file documented as of this encounter Plan of Treatment Not on filedocumented as of this encounter Procedures Procedure Name Priority Date/Time Associated Diagnosis Comme [facility] SURGICAL PATHOLOGY Routine 09/11/2010 Results f or this procedure are i n the results section . documented in this encounter Results SURGICAL PATHOLOGY (09/11/2010) Specimen Narrative [facility] - 011 8:00 EDT Name: AWA SHRESTHA ? : [birth year] ?Age/Sex: 33/F ?Unit#: [id number] ? Loc: OBS ? Status: DIS IN ? Reg Date: 09/11/10 ? Pt.Phone Number : ? Specimen: [id number] ? STA TUS: SOUT ?Spec Date:09/11/10 ? Physician Copies: ?Deysi Stuart ? Tissues: A ?? Female Reproductive System (PLACENTA) ? CPT: 20320 ?? Units: ??1 ?FINAL DIAGNOSIS ? Placenta, membranes, and umbilica l cord; ? - Circumvallate placenta (472 gra ms). ? - Pigment laden macrophages consi stent with meconium present in amnionic ? connective tissue. ? - Normal 3-vessel cord. ?COMMENT ? No inflammation identified; no chorioam nionitis, villitis, or funisitis. ??There is no definitive gross or microscopic e vidence of retroplacental hemorrhage (abruptio placenta). ? GROSS DESCRIPTION ? Received in formalin labeled with the patient's name and placenta is a ? placenta with attached memb ranes and umbilical cord. ??The placenta is ? circumvallate with a maximum diam eter of 18 x 16 cm and a maximum thickness of ? 3 cm. ??The umbilical cord shows a solid central insertion 8 cm from the margin ? and measures 52 cm long x average 1 cm in diameter. ??No knots, varices or ? thromboses are present. ?? m embranes are tattered, [id number] ? with separation of amnion from ch kelsey. ??There is hemorrhage and blood clot in ? the specimen container aggregatin g approximately 20 cc. ??Cross sectioning of ? the umbilical cord demonstrates t he normal three vessels. ??The trimmed placenta ? weighs 472 grams. ??The darlin face is [id number]-[id number]-[id number]-june, relatively ? smooth and glistening with separa tion of amnion from chorion over nearly the ? entire surface. ??Vessels shows t he normal arborizing pattern. ??No varices or ? thromboses are seen. ??There is f ocal hemorrhage beneath the chorion. ??The ? maternal surface shows normal cot yledenous architecture, is intact and ? complete. ??No central infarcts a re identified. ??There is minimal adherent blood ? clot and no indentation of the ma ternal surface: no good evidence for ? significant retroplacental hemorr spenser. ??Interval sectioning shows deep red ? spongy parenchyma without solid o r cystic masses. r.s. 4. CP Patient: AWA SHRESTHA ? #[id number] ? (Continued) Specimen: [id number] ? Rec eived: 09/11/10 ?(Continued) ?? PREOP DX/CLINICAL HISTORY ? PLACENTAL ABRUPTION, Signed ____(signature on file)____ Demi Venutra M.D. 09/23/10 By the signature above, the attending ph ysician certifies that he/she has personally conducted a gross and/or microscopic exa mination of the described specimens and rendered or confirmed the above diagnosi s. Test Performed by [facility], [address] [place] [address] Automotive Parts Salesperson: Demi Marie MD PHD Performing Organization Address City/State/ZIP Code Phon e Number [facility] [address] [place] [address] [facility] LAB documented in this encounter Visit Diagnoses Not on filedocumented in this encounter
--- OUTSIDE RECORDS SUMMARY | 2021-11-12 01:28 | XMS_ITS | Encounter Summary ---
:1985 Author Organization [facility] Address [address] [place] [address] Care Team Providers Name Role Phone Unavailable Primary Care Provider Unavailable Encounter Details Date Type Department Care Team Description 05/03/2010 Historical Results [facility] - Cyndie Steele, Only [facility] Lab - Main [facility] [address] [place] [address] [id number] Social History Tobacco Use Types Packs/Day Years Used Date Never Assessed Sex Assigned at Date Recorded Not on file documented as of this encounter Plan of Treatment Not on filedocumented as of this encounter Procedures Procedure Name Priority Date/Time Associated Diagnosis Comme nts PAP TEST Routine 05/03/2010 Results for thi s procedure are in the resu lts section. documented in this encounter Results PAP TEST (05/03/2010) Specimen Narrative [facility] - 011 14:34 EST Name: AWA SHRESTHA ? : [birth year] ?Age/Sex: 33/F ?Unit#: [id number] ? Loc: AGO ? Status: REG POV ?? Reg Date: 05/03/10 ? Pt.Phone Number : ? Specimen: [id number] ? STA TUS: SOUT ?Spec Date:05/03/10 ? Physician Copies: ?Cyndie Steele ? Tissues: ? Cervical/Endo Pap ?Cecilia Carpenter CPT: 19892 ?? Units: ??1 ? CYTOLOGY DIAGNOSIS SPECIMEN ADEQUACY: ?Satisfactory for evaluation. Transformation zone component ABSENT. GENERAL CATEGORIZATION: ?Negative fo r Intraepithelial Lesion or Malignancy DESCRIPTIVE DIAGNOSIS: ? Trichomonas vaginalis present. ?? ALSO ?? Fungal organisms present morphologic ally consistent with Julissa species. RECOMMENDATIONS/COMMENTS: ?None. ORDER QUERIES: LMP: 11/22/09- ?Preg nant? Y Post ? N ??PREVIOUS ATYPICAL: N BCP/HRT? N Rad Rx? N IUD? N ??PAP PLUS HPV? N ??REFLEX TO HR-HPV IF ASCUS ?? REFLEX TO HPV 16/18 IF HPV POS/PAP NEG ?? HPV REGARDLESS?RFLX HPV IF LSIL ?? IF ASCUS DO HPV? Y Signed Toyin Alan CT(ASCP) 05/14/10 By the signature above, the attending ph ysician certifies that he/she has personally conducted a gross and/or microscopic exa mination of the described specimens and rendered or confirmed the above diagnosi s. Test Performed by [facility], [address] [place] [address] Hydrodynamics Teacher: Demi Marie MD PHD Performing Organization Address City/State/ZIP Code Phon e Number [facility] [address] [place] [address] LAB documented in this encounter Visit Diagnoses Not on filedocumented in this encounter
[2021-11-12 12:46] LABS: Hemoglobin A1C 5.2 % (<5.7)
[2021-11-12 12:47] LABS: ALT 20 U/L (14-59); AST 16 U/L (15-37); Albumin 3.2 g/dL (3.4-5.0); Alkaline Phosphatase 74 U/L (46-116); Anion Gap 8.2 mmol/L (3-11); BUN 11 mg/dL (7-18); Bilirubin, Total 0.1 mg/dL (0.2-1.0); CO2 25.8 mmol/L (21.0-32.0); CREATININE 0.9 mg/dL (0.55-1.02); Calculated LDL 98 mg/dL (<100); Chloride 107 mmol/L (98-107); Cholesterol 155 mg/dL (<200); Glucose 90 mg/dL (74-106); HDL Cholesterol 36 mg/dL (40-60); Potassium 3.9 mmol/L (3.5-5.1); Sodium 141 mmol/L (136-145); Total Protein 6.8 g/dL (6.4-8.2); Triglyceride 106 mg/dL (<150)
[2021-11-14 11:27] LABS: HIV-1/2 Ag & Ab Screen Negative (Negative)
[2021-11-15 10:07] LABS: Hepatitis C Ab w Rflx HCV PCR Negative (Negative)
== END 2021-11-12 01:08 | disposition home or self-care (01) ==
LOC: LOS 01:07
PROVIDERS: PCP Nurse Practitioner Family; Visit Provider Family Medicine
DX: R73.9 Hyperglycemia, unspecified (principal); Z11.59 Encounter for screening for other viral diseases; Z13.6 Encounter for screening for cardiovascular disorders; Z51.81 Encounter for therapeutic drug level monitoring; I10 Essential (primary) hypertension; Z11.4 Encounter for screening for human immunodeficiency virus [HIV]
CPT/HCPCS: 36415; 80053; 80061; 86803; 87389; 83036

== ENCOUNTER 2023-03-04 11:46 | Emergency (ER) | payer MEDICAID, SELFPAY ==
[2023-03-04 11:49] VITALS: BP 120/95; PULSE 110; RESP 18; TEMP 36.6; O2SAT 97
--- NOTE | 2023-03-04 14:00 | DI.RAD_ITS ---
Exam(s) XR RIBS RT PA CHEST 3V EXAM: XR RIBS RT PA CHEST 3V CLINICAL HISTORY: lower rib pain s/p fall TECHNIQUE: 2D digital imaging was performed.Six images were obtained. COMPARISON: CR CHEST 2 VIEWS PA,LAT from 02/18/2016 FINDINGS: MEDIASTINUM: Normal. HEART: Normal. PULMONARY VASCULATURE: Normal. LUNGS: Clear. PLEURAL SPACE: No pleural effusion or pneumothorax. BONE:Normal. RIGHT RIBS: Normal. OTHER FINDINGS:Normal. IMPRESSION: 1. No acute pulmonary findings. 2. Unremarkable right ribs. DATA REPOSITORY: RADIATION DOSE DELIVERED:
--- NOTE | 2023-03-04 14:00 | DI.CT_ITS ---
Exam(s) CT ABDOMEN PELVIS WO EXAM: CT ABDOMEN PELVIS WO CLINICAL HISTORY: RUQ pain s/p fall. TECHNIQUE: Imaging Protocol: Axial computed tomography images with coronal and sagittal reformatted images were created and reviewed. COMPARISON: CT CT ABDOMEN PELVIS WO from 06/27/2021 FINDINGS: Lack of IV contrast limits evaluation of the abdominal organs. ABDOMEN: Lung Bases: Normal where visualized. Liver: Normal density. No measurable mass. The dome of the liver is not included on this examination. Gallbladder and biliary tract: No radiodense calculus or biliary ductal dilation. Pancreas: Normal density, no abnormal calcifications or inflammatory process. Spleen: Normal. Kidneys: Normal size, contour and axis.No radiodense stones or obstructive uropathy. No masses seen. Adrenal glands: No mass is seen. Lymph nodes: Within normal limits. Abdominal Aorta: Abdominal portion non-dilated. Atherosclerosis. PELVIS: Bladder:Symmetric distention, no gross wall thickening. Bowel: No obstruction or bowel wall thickening. No evidence of appendicitis. Peritoneal cavity: No ascites, collection or mesenteric inflammatory response. No free air. Reproductive organs: Unremarkable as visualized. Bones: Within normal limits for the patient's age. Developmental abnormality seen at L4-5 which is s table. Soft Tissues: Within normal limits. IMPRESSION: No acute abnormality. RADIATION DOSE DELIVERED: Total DLP DATA REPOSITORY: All CT scans at this facility are submitted to the National Radiology Data Registry (NRDR) Dose Index Registry (DIR) with the [employer] (ACR). RADIATION OPTIMIZATION: All CT scans at this facility use at least one of these dose optimization te chniques: automated exposure control; mA and/or kV adjustment per patient size (includes targeted exa ms where dose is matched to clinical indication); or iterative reconstruction.
[2023-03-04] MEDS: Acetaminophen 325 MG TAB 650 MG PO (14:18)
--- NOTE | 2023-03-04 15:11 | DI.VRAD_ITS ---
PROCEDURE INFORMATION: Exam: CT Abdomen And Pelvis Without Contrast Exam date and time: 03/04/2023 2:32 PM Age: 37 years old Clinical indication: Injury or trauma; Fall; Blunt; Ruq TECHNIQUE: Imaging protocol: Computed tomography of the abdomen and pelvis without contrast. COMPARISON: CT ABDOMEN PELVIS WO 06/27/2021 9:46 PM FINDINGS: Lungs: The visualized lung bases are clear Liver: Unremarkable as visualized Gallbladder and bile ducts: No calcified stones. No ductal dilation. Pancreas: Unremarkable as visualized Spleen: Unremarkable as visualized Adrenal glands: Normal. No mass. Kidneys and ureters: Unremarkable as visualized Stomach and bowel: Unremarkable. No obstruction. No mucosal thickening. Appendix: No evidence of appendicitis. Intraperitoneal space: Unremarkable. No free air. No significant fluid collection. Vasculature: Mild atherosclerotic calcifications of the iliac arteries. Lymph nodes: No enlarged lymph nodes. Urinary bladder: Unremarkable as visualized. Reproductive: Unremarkable as visualized. 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 Degenerative changes of the lumbar spine. No fracture. Soft tissues: Unremarkable. IMPRESSION: No acute findings Dictated and Authenticated by: Carrillo Cruz MD. Ordering:NAYELY Abbasi MD
--- NOTE | 2023-03-04 15:13 | DI.VRAD_ITS ---
PROCEDURE INFORMATION: Exam: XR Chest Exam date and time: 03/04/2023 2:37 PM Age: 37 years old Clinical indication: Injury or trauma; Fall; Blunt trauma (contusions or hematomas) TECHNIQUE: Imaging protocol: Radiologic exam of the chest. Views: 1 view. COMPARISON: CT ABDOMEN PELVIS WO 03/04/2023 2:32 PM FINDINGS: Lungs: No consolidation. No Mass Pleural spaces: No pleural effusion. No pneumothorax. Heart/Mediastinum: Unremarkable Bones/joints: No significant abnormality IMPRESSION: No acute findings. Dictated and Authenticated by: Carrillo Cruz MD. Ordering:NAYELY Abbasi MD
--- NOTE | 2023-03-04 15:20 | W.ED.GENAD ---
Discharge Plan Disposition Patient Disposition: Home Condition: Stable Discharge Details Clinical Impression: Contusion of rib on right side Primary Care Provider: Smitha Bush ED Provider: Ayleen Mendieta Home Meds and New Rx's Prescriptions: Continued acetaminophen 500 mg tablet 1,000 mg PO BID PRN lidocaine 4 % adhesive patch,medicated 1 patch topical DAILY PRN cyclobenzaprine 5 mg tablet 5 mg PO TID PRN (Reason: muscle spasm) Qty: 60 0RF Rx Instructions: Take 1 tablet by mouth three times a day as needed for back pain naltrexone 50 mg tablet 50 mg PO DAILY Qty: 30 2RF Xulane 150-35 mcg/24 hr patch weekly 1 patch Transdermal QWEEK Qty: 9 3RF doxycycline hyclate 100 mg capsule 100 mg PO BID Qty: 14 0RF albuterol sulfate 90 mcg/actuation HFA aerosol inhaler 1 puff IH Q4H PRN (Reason: shortness of breath or wheezing) Qty: 8 0RF promethazine 25 mg tablet 25 mg PO TID PRN (Reason: nausea and vomiting) Qty: 10 0RF ondansetron 4 mg tablet,disintegrating 4 mg PO Q6H PRN (Reason: nausea and vomiting) Qty: 7 0RF Discharge Instructions Instructions: Rib Contusion (ED) Additional Instructions: Ice to affected area 20 minutes on and 20 minutes off for the next 24 to 72 hours. You may alternate ibuprofen 600 mg every 6 hours and/or Tylenol 650 mg every 6 hours as needed for pain. Return to ED for difficulty breathing or any other concerns. Stand Alone Forms: Work Release Medical Decision Making Patient and her mom were updated on her test results. She again had refused blood draw/IV. With no evidence of blood on CT this is much more reassuring. She will use ice, Tylenol, and ibuprofen as needed for pain. 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 She will return for severe abdominal pain or difficulty breathing. Medical Records Medical records reviewed: Yes I reviewed the patient's medical records. Imaging Data Radiologic Study: Imaging: X-Ray (CXR and R ribs neg) and CT Scan (ABD Pelvis NAD) HPI General Date/Time Provider Initiated Documentation: 03/04/23 12:29. HPI Narrative: This 37-year-old female patient presents with a chief complaint of right lower rib pain after a recent fall. The patient states that she was walking her dog when he suddenly pulled her and she fell, landing on a tree stump. The patient denies shortness of breath but says that it hurts when she takes of breath. She also has some right upper quadrant pain. She did not hit her head and denies any other injury. There is no bruising evident. She states the pain is severe and lying flat makes it worse. She refused a blood draw or IV in the emergency department. The pain is sharp in nature. It does not radiate into her back. This happened just prior to arrival. Related Data Home Medications Medication Instructions Recorded Confirmed acetaminophen 500 mg tablet 1,000 mg PO BID PRN 05/07/21 03/04/23 cyclobenzaprine 5 mg tablet 5 mg PO TID PRN muscle spasm #60 05/07/21 03/04/23 tabs lidocaine 4 % topical patch 1 patch topical DAILY PRN 05/07/21 03/04/23 naltrexone 50 mg tablet 50 mg PO DAILY #30 tabs 10/18/21 03/04/23 promethazine 25 mg tablet 25 mg PO TID PRN nausea and 12/31/21 03/04/23 vomiting #10 tabs Xulane 150 mcg-35 mcg/24 hr 1 patch transdermal QWEEK #9 ea 02/09/22 03/04/23 transdermal patch (norelgestromin-ethin.estradiol) albuterol sulfate 90 mcg/actuation 1 puff inhalation Q4H PRN 12/02/22 03/04/23 aerosol inhaler shortness of breath or wheezing #8 grams doxycycline hyclate 100 mg capsule 100 mg PO BID #14 caps 12/02/22 03/04/23 ondansetron 4 mg disintegrating 4 mg PO Q6H PRN nausea and 01/17/23 03/04/23 tablet vomiting #7 tabs Previous Rx's Medication Instructions Recorded cyclobenzaprine 5 mg tablet 5 mg PO TID PRN muscle spasm #60 05/07/21 tabs naltrexone 50 mg tablet 50 mg PO DAILY #30 tabs 10/18/21 promethazine 25 mg tablet 25 mg PO TID PRN nausea and 12/31/21 vomiting #10 tabs Xulane 150 mcg-35 mcg/24 hr 1 patch transdermal QWEEK #9 ea 02/09/22 transdermal patch (norelgestromin-ethin.estradiol) albuterol sulfate 90 mcg/actuation 1 puff inhalation Q4H PRN 12/02/22 aerosol inhaler shortness of breath or wheezing #8 grams doxycycline hyclate 100 mg capsule 100 mg PO BID #14 caps 12/02/22 ondansetron 4 mg disintegrating 4 mg PO Q6H PRN nausea and 01/17/23 tablet vomiting #7 tabs Allergies Allergy/AdvReac Type Severity Reaction Status Date / Time Penicillins Allergy Unknown Skin Rash Verified 03/04/23 13:27 amoxicillin [Amoxicillin] Allergy Skin Rash Verified 03/04/23 13:27 Iodinated Contrast Media Allergy Hives Verified 03/04/23 13:27 [Iodinated Contrast- Oral and IV Dye] benzonatate AdvReac Intermediate Nausea and Verified 03/04/23 13:27 vomiting General Stated Complaint: Fall/Non TraumaCriteria LAYNE: 3 Review of Systems All systems reviewed & are unremarkable except as noted in HPI and below PFSH All Active Problems Contusion of rib on right side (Acute) Alcohol use disorder, moderate, in early remission (Chronic) Generalized anxiety disorder (Chronic) Depressive disorder (Chronic) Contraceptive surveillance (Chronic) Cigarette smoker (Chronic) Attention deficit hyperactivity disorder, combined type (Chronic) Chronic back pain (Chronic) a Medical History COVID-19 (~08/17/21) Febrile seizures Surgical History No significant past surgical history Family History Mother Diabetes Hypertension Depression Father Emphysema lung Sister Epilepsy Asthma Depression Hypertension Sister No problems noted. Sister No problems noted. Sister No problems noted. Brother No problems noted. Brother No problems noted. Daughter No problems noted. Maternal Grandfather No problems noted. Maternal Grandmother No problems noted. Paternal Grandfather No problems noted. Paternal Grandmother No problems noted. Social History Smoking/Tobacco Use Status: Current every day Tobacco Type: cigarettes Smoking packs per day: 1 Smoking cigarettes per day: 20.0 Years smoked: 18 Smoking pack-years: 18.00 Tobacco: How many years used: 18 Quit status: considering quitting Second Hand Exposure: Yes Smoking risk assessment performed?: Yes Alcohol Intake: former Drug use: Never Caregiver/Support person: No Household members: family Housing: house Communication Needs: None Do you need help understanding health information?: Never Pets and animals: Yes Pets and animals: dog(s) Sexually active: No Do you think of yourself as: straight/heterosexual Current gender identity: male What is your relationship status?: never How often do you talk on the phone with friends or family?: once per week How often do you get together with friends or relatives?: twice per week How often do you attend hinduism or zoroastrianism services?: decline to answer Do you belong to any clubs or organized social groups?: no Panel score (0-1 are the most socially isolated patients): 1 What type of physical activity do you participate in: walking Frequency: daily Special jacki needs: No Do you feel safe at home: Yes Do you feel safe in your relationship?: Yes History History 2 Para 1 Hx # Term Pregnancies Multiple births Hx # Pregnancies Ectopic pregnancies AB induced 1 Hx Number of Living Children 1 AB spontaneous Exam Const General: other (Uncomfortable appearing) Orientation: alert, awake and oriented x3 Limitations: mental status not altered [facility] Head: normocephalic and atraumatic Face and sinus: face symmetric Mouth: oral mucosae normal Teeth and gingiva: other (Some missing teeth) Eyes Conjunctivae: conjunctivae normal Neck Neck: full ROM Chest Chest: normal inspection of the chest and other (Patient has anterolat rib TTP R 9, 10; no crepitus/stepoff) Resp Effort & Inspection: normal respiratory effort and able to speak in complete sentences Auscultation: clear to auscultation bilaterally Cardio Rate: regular rate Rhythm: regular rhythm Heart Sounds: no murmurs and no rubs GI Inspection: normal to inspection Palpation: soft and other (Right upper quadrant tenderness to palpation with guarding) Back/Spine/Pelvis Back: no CVA tenderness Cervical Spine: No cervical spinal tenderness Thoracic/Lumbar Spine: No thoracic spinal tenderness and No lumbar spinal tenderness Pelvis: no pain with anterior-posterior compression and no pain with lateral compression Sacrum: no tenderness Skin General skin exam: other (No bruising or abrasions) Neuro General: patient alert, patient awake, patient oriented x3 and no focal motor deficits Speech: speech normal Gait: normal gait Motor: strength 5/5 throughout Sensory Exam: no sensory deficits noted Extrem General: normal to inspection, full ROM and other (All arms and legs are nontender to palpation and AT) Course Vital Signs Vital signs: Vital Signs Temperature 36.6 C 03/04/23 11:49 Pulse 110 H 03/04/23 11:49 Respiratory Rate 18 03/04/23 11:49 Blood Pressure 120/95 H 03/04/23 11:49 Pulse Oximetry 97 03/04/23 11:49 Temperature 36.6 C 03/04/23 11:49 Temperature Source Oral 03/04/23 11:49 Pulse 110 H 03/04/23 11:49 Respiratory Rate 18 03/04/23 11:49 Respiratory Effort Normal, Non-Labored 03/04/23 13:28 Blood Pressure 120/95 H 03/04/23 11:49 Blood Pressure Position Sitting 03/04/23 11:49 Pulse Oximetry 97 03/04/23 11:49 Oxygen Delivery Method Room Air 03/04/23 11:49 Oxygen Flow Rate 0 03/04/23 11:49
[2023-03-04 15:23] VITALS: BP 139/86; PULSE 78; RESP 16; O2SAT 99
== END 2023-03-04 15:26 | disposition home or self-care (01) ==
PROVIDERS: Emergency Provider Emergency Medicine; PCP Nurse Practitioner Family
DX: S20.211A Contusion of right front wall of thorax, initial encounter (principal); F17.210 Nicotine dependence, cigarettes, uncomplicated; W18.39XA Other fall on same level, initial encounter; Y93.K1 Activity, walking an animal; Y92.89 Other specified places as the place of occurrence of the external cause
CPT/HCPCS: 99283; 71046; 71100; 74176

== ENCOUNTER 2023-05-22 13:49 | Outpatient (REF) | payer MEDICAID, SELFPAY ==
--- NOTE | 2023-05-22 13:00 | PAPFT_PTH ---
PATIENT: Awa Shrestha LOC: [facility] U#:[id number] AGE/SX: 37/F ROOM: RE05/22/[address]: MARIE Baig : 1985 BED: DIS: 05/22/2023 SPEC #: [id number] RECD: 05/23/23 13:14 STATUS: YOLANDA HINKLE #: [id number] MARTIN: 05/22/23 13:[address]: Smitha Bush DEPT: [facility] Cytology RECD BY: Deisi Austin Tissues: 1 - CX/ENDOCX FOR PAP SMEARS Procedures: PAP THIN PREP/UVM Screening HPV DNA PROBE Comments: [id number]
== END 2023-05-22 13:50 | disposition home or self-care (01) ==
LOC: LBN 13:49
PROVIDERS: PCP Nurse Practitioner Family; Visit Provider Nurse Practitioner Family
DX: Z12.4 Encounter for screening for malignant neoplasm of cervix (principal); Z11.51 Encounter for screening for human papillomavirus (HPV)
CPT/HCPCS: 88142; 87624

== ENCOUNTER 2023-11-15 02:52 | Emergency (ER) | payer MEDICAID, SELFPAY ==
[2023-11-15 02:53] VITALS: BP 153/115; PULSE 99; RESP 16; TEMP 36.6; O2SAT 97
--- NOTE | 2023-11-15 03:04 | ED.GENADUL_ITS ---
Discharge Plan Disposition Patient Disposition: Against Medical Advice Condition: Fair Discharge Details Chief Complaint: ETOHWithdr Clinical Impression: Alcohol intoxication Primary Care Provider: Smitha Bush ED Provider: Kayleigh Hawthorne Home Meds and New Rx's Prescriptions: No Action norelgestromin-ethin.estradiol [Xulane] 150-35 mcg/24 hr patch weekly 1 patch Transdermal QWEEK Qty: 9 3RF HPI General Mode of arrival: EMS . Date/Time Provider Initiated Documentation: 11/15/23 02:56 . Limitations to Documentation: no limitations . Information obtained by: patient and EMS . HPI Narrative: 38yo F with hx febrile seizures presenting via EMS from [place] [facility] (protective custody) for abnormal movements. History primarily from EMS; EMS reports patient with 10 minutes of diffuse whole body shaking during which she would blink to threat and protect her head. Alert and oriented after shaking ceased, no post-ictal state witnessed. Patient minimally participatory in history on arrival, refusing assessment. States I just want to leave. Denies SI/HI/AH/VH. Related Data Home Medications ?Medication ?Instructions ?Recorded ?Confirmed Xulane 150 mcg-35 mcg/24 hr 1 patch transdermal QWEEK #9 ea 09/20/23 11/15/23 transdermal patch (norelgestromin-ethin.estradiol) Previous Rx's ?Medication ?Instructions ?Recorded Xulane 150 mcg-35 mcg/24 hr 1 patch transdermal QWEEK #9 ea 09/20/23 transdermal patch (norelgestromin-ethin.estradiol) Allergies Allergy/AdvReac Type Severity Reaction Status Date / Time Penicillins Allergy Unknown Skin Rash Verified 11/15/23 03:07 amoxicillin (Amoxicillin) Allergy Skin Rash Verified 11/15/23 03:07 Iodinated Contrast Media Allergy Hives Verified 11/15/23 03:07 (Iodinated Contrast- Oral and IV Dye) benzonatate AdvReac Intermediate Nausea and Verified 11/15/23 03:07 vomiting General Stated Complaint: ETOHWithdr LAYNE: 3 Review of Systems Narrative: see HPI Exam Narrative Exam Narrative: General: Alert, crying Head: Normocephalic, atraumatic Neck: Trachea midline, ?Neck supple. ENT: ?MMM.? Cardiac: ?RRR, no murmurs appreciated Resp: No respiratory distress. CTAB. Abd: ?Soft, non-distended, nontender Extremities: ?No deformities.? No peripheral edema. Psych: Mildly agitated, redirectable. Adequately groomed.? Mood irritated, affect congruent.? Speech with normal volume, rate, rythym and tone. Linear and goal directed.? Denies SI/HI/AH/VH. ? Does not appear to be responding to internal stimuli. Neuro: ? GCS 15.? PERRL.? EOMI.? Fluent speech, no dysarthria. Moves all extremities freely against gravity. Normal stance.? No truncal ataxia. Steady gait with equal normal steps Course Vital Signs Vital signs: Vital Signs Temperature 36.6 C 11/15/23 02:53 Pulse 99 H 11/15/23 02:53 Respiratory Rate 16 11/15/23 02:53 Blood Pressure 153/115 H 11/15/23 02:53 Pulse Oximetry 97 11/15/23 02:53 Temperature 36.6 C 11/15/23 02:53 Temperature Source Temporal Artery Scan 11/15/23 02:53 Pulse 99 H 11/15/23 02:53 Respiratory Rate 16 11/15/23 02:53 Blood Pressure 153/115 H 11/15/23 02:53 Pulse Oximetry 97 11/15/23 02:53 Oxygen Delivery Method Room Air 11/15/23 02:53 Oxygen Flow Rate 0 11/15/23 02:53 Pain Level 0 11/15/23 02:53 Medical Decision Making 38yo F with hx febrile seizures presenting via EMS from [place] [facility] (protective custody for alcohol intoxication) for abnormal movements. History primarily from EMS; EMS reports patient with 10 minutes of diffuse whole body shaking during which she would blink to threat and protect her head. Alert and oriented after shaking ceased, no post-ictal state witnessed. Patient minimally participatory in history on arrival, refusing assessment. States I just want to leave. Denies SI/HI/AH/VH. Denies any recent trauma or injury, EMS with no report of such. No indication of trauma on exam. I expressed to Ms. Shrestha that I would like to do a full exam including a full neurologic exam and possibly bloodwork; she refused again stating that she wanted to leave. I have a low suspicion that she had a generalized seizure based on EMS report of what they witnessed. She does not appear post ictal at this time and demonstrates decision making capacity. I reviewed with Ms. Shrestha the risks of untreated seizures including disability and ; she verbalized understanding of my concerns and again stated that she wanted to go home. I have no indication to hold her against here against her will. Left against medical advice, declined to wait for written discharge instructions. Ambulated out of department independently with a steady gait. Quality:SDOH Health Related Social Needs: No Data to Display PFSH All Active Problems (Updated 11/15/23 @ 03:26 by Kayleigh Hawthorne MD) Alcohol intoxication (Acute) Generalized anxiety disorder (Chronic) Contraceptive surveillance (Chronic) Cigarette smoker (Chronic) Attention deficit hyperactivity disorder, combined type (Chronic) Verruca vulgaris (Chronic) Medical History (Updated 11/15/23 @ 03:26 by Kayleigh Hawthorne MD) Alcohol use disorder, moderate, in sustained remission Depressive disorder Febrile seizures Surgical History No significant past surgical history Family History Mother Diabetes Hypertension Depression Father Emphysema lung Sister Epilepsy Asthma Depression Hypertension Sister No problems noted. Sister No problems noted. Sister No problems noted. Brother No problems noted. Brother No problems noted. Daughter No problems noted. Maternal Grandfather No problems noted. Maternal Grandmother No problems noted. Paternal Grandfather No problems noted. Paternal Grandmother No problems noted. Social History Smoking/Tobacco Use Status: Current every day Tobacco Type: cigarettes Smoking packs per day: 1 Smoking cigarettes per day: 20.0 Years smoked: 18 Smoking pack- years: 18.00 Tobacco: How many years used: 15 Smokeless tobacco user: other Quit status: considering quitting Second Hand Exposure: Yes Smoking risk assessment performed?: Yes Alcohol Intake: former Drug use: Never Caregiver/Support person: No Household members: family Housing: house Communication Needs: None Do you need help understanding health information?: Never Pets and animals: Yes Pets and animals: dog(s) Sexually active: No Do you think of yourself as: straight/heterosexual Current gender identity: female What is your relationship status?: never How often do you talk on the phone with friends or family?: once per week How often do you get together with friends or relatives?: twice per week How often do you attend tenriism or evangelical services?: decline to answer Do you belong to any clubs or organized social groups?: no Panel score (0-1 are the most socially isolated patients): 1 What type of physical activity do you participate in: walking Frequency: daily Special jacki needs: No Do you feel safe at home: Yes Do you feel safe in your relationship?: Yes History History 2 Para 1 Hx # Term Pregnancies Multiple births Hx # Pregnancies Ectopic pregnancies AB induced 1 Hx Number of Living Children 1 AB spontaneous
== END 2023-11-15 03:14 | disposition left against medical advice (07) ==
PROVIDERS: Emergency Provider Student in an Organized Health Care Education/Training Program; PCP Nurse Practitioner Family
DX: F10.120 Alcohol abuse with intoxication, uncomplicated (principal); F17.210 Nicotine dependence, cigarettes, uncomplicated; Z53.29 Procedure and treatment not carried out because of patient's decision for other reasons
CPT/HCPCS: 99283

== ENCOUNTER 2024-07-21 18:48 | Emergency (ER) | payer MEDICAID, SELFPAY ==
[2024-07-21 18:50] VITALS: BP 147/91; PULSE 111; RESP 20; TEMP 36.1; O2SAT 96
--- NOTE | 2024-07-21 18:59 | ED.GENADUL_ITS ---
Discharge Plan Disposition Patient Disposition: Eloped Condition: Stable Discharge Details Chief Complaint: Orthopedic Clinical Impression: Contusion of right elbow Primary Care Provider: Smitha Bush ED Provider: Cesar Kim Home Meds and New Rx's Prescriptions: No Action clotrimazole 1 % cream 1 applic topical BID Qty: 45 0RF Rx Instructions: Apply to affected areas twice a dayfor 2-4wks norelgestromin-ethin.estradiol [Xulane] 150-35 mcg/24 hr patch weekly 1 patch Transdermal QWEEK Qty: 9 3RF Discharge Instructions Additional Instructions: Patient eloped without instructions, refused to stay despite being told XR was being read that very moment. HPI General Date/Time Provider Initiated Documentation: 07/21/24 18:58 . HPI Narrative: 38 year-old female presents to ED today by POV/ambulating with her father with a chief complaint of R elbow pain after a fall outside their home earlier today with onset around 1000. Quality described as R elbow pain, limited ROM and sig nificant bruising with a minor abrasion, no radiation to numbness/tingling distally, active bleeding, humerus/shoulder pain, neck pain, headstrike/LOC. Severity is described as moderate. Palliating factors include took a pain reliever around 1000, unsure of what kind. Provoking factors include nothing specific. Patient is R-hand dominant. Patient not anticoagulated. Related Data Home Medications ?Medication ?Instructions ?Recorded ?Confirmed Xulane 150 mcg-35 mcg/24 hr 1 patch transdermal QWEEK #9 ea 09/20/23 07/21/24 transdermal patch (norelgestromin-ethin.estradiol) clotrimazole 1 % topical cream 1 applic topical BID #45 grams 06/26/24 07/21/24 Previous Rx's ?Medication ?Instructions ?Recorded Xulane 150 mcg-35 mcg/24 hr 1 patch transdermal QWEEK #9 ea 09/20/23 transdermal patch (norelgestromin-ethin.estradiol) clotrimazole 1 % topical cream 1 applic topical BID #45 grams 06/26/24 Allergies Allergy/AdvReac Type Severity Reaction Status Date / Time Penicillins Allergy Unknown Skin Rash Verified 07/21/24 18:54 amoxicillin (Amoxicillin) Allergy Skin Rash Verified 07/21/24 18:54 Iodinated Contrast Media Allergy Hives Verified 07/21/24 18:54 (Iodinated Contrast- Oral and IV Dye) benzonatate AdvReac Intermediate Nausea and Verified 07/21/24 18:54 vomiting General Stated Complaint: Orthopedic LAYNE: 4 Review of Systems All systems reviewed & are unremarkable except as noted in HPI and below Exam Narrative Exam Narrative: GENERAL APPEARANCE: Well-nourished, non-toxic, awake and alert, atraumatic, no acute distress. SKIN: Warm, pink, dry, intact, without rashes/lesions/ulcerations. HEAD: Normocephalic, atraumatic, normal hair distribution for gender/age. EYES: Normal conjunctiva, no exudates on lids/lashes. ENT: Nares patent, no circumoral cyanosis, no facial swelling NECK: Supple, trachea midline, painless cervical ROM. LUNGS/CHEST: Non-labored respirations, normal A/P diameter, symmetrical expansion, no chest wall deformity HEART (CV/PV): Regular rate, no peripheral edema, no JVD. ABDOMEN: Soft, non-distended, no guarding. MSK: Normal ROM, no swelling/deformity to bilateral UEs or LEs, moving all extremities without weakness, no cyanosis, spine midline without tenderness, normal curvature, contusion and minor abrasion to the lateral aspects of the right epicondyle of elbow, bruising is about 5 x 5 cm, minor abrasion not actively bleeding no signs of infection or gross contamination, range of motion is limited to pain, no radiation of pain with palpation of the humerus or radius/ulna, right radial pulse 2+ NEURO: Mental Status AAOx4 - alert to person, place, time, events No facial droop, no forehead involvement. Motor: No focal weakness - strength 5/5 in bilateral UEs and LEs, proximal and distal, symmetric. Sensory: sensation intact to light touch globally. Gait normal: patient ambulated without ataxia into ED room. PSYCH: euthymic, cooperative, pleasant, appropriate speech Course Vital Signs Vital signs: Vital Signs Temperature 36.1 C L 07/21/24 18:50 Pulse 111 H 07/21/24 18:50 Respiratory Rate 20 07/21/24 18:50 Blood Pressure 147/91 H 07/21/24 18:50 Pulse Oximetry 96 07/21/24 18:50 Temperature 36.1 C L 07/21/24 18:50 Pulse 111 H 07/21/24 18:50 Respiratory Rate 20 07/21/24 18:50 Blood Pressure 147/91 H 07/21/24 18:50 Blood Pressure Position Sitting 07/21/24 18:50 Pulse Oximetry 96 07/21/24 18:50 Oxygen Delivery Method Room Air 07/21/24 18:50 Oxygen Flow Rate 0 07/21/24 18:50 Medical Decision Making This dictation utilizes [id number] dictation software and may contain unedited grammatical errors. 38 year-old female presents to ED today by POV/ambulating with her father with a chief complaint of R elbow pain after a fall outside their home earlier today with onset around 1000. Quality described as R elbow pain, limited ROM and significant bruising with a minor abrasion, no radiation to numbness/tingling distally, active bleeding, humerus/shoulder pain, neck pain, headstrike/LOC. Severity is described as moderate. Palliating factors include took a pain reliever around 1000, unsure of what kind. Provoking factors include nothing specific. Patient is R-hand dominant. Patients' medical history: Noncontributory. Family and social history: Noncontributory. Pertinent exam findings / vital signs include significant swelling at the lateral right elbow with a minor abrasion, ecchymosis, right radial pulse 2+, humerus stable, radius and ulna stable, palpation of mid forearm does not radiate pain to elbow. Differential / pathologies of concern include fracture, contusion. Diagnostic studies of: - XR R elbow. Interventions of: - 1 g p.o. Tylenol, 10mg PO toradol. ED Course/Assessment/Plan: 38-year-old female presents with a fall earlier today with contusion to the lateral aspect/epicondyle area of the right elbow, she was given Tylenol and Toradol and taken to x-ray, upon returning from x-ray she waited for less than 20 minutes before saying she needed to leave and eloped, her x-ray was being read while she eloped and she declined to discuss states she will check her portal later, had she stated I would have recommended Tylenol and ibuprofen and ice therapy and nothing more, follow-up with orthopedics for persistent problems with range of motion, return for signs of infection if abrasion becomes infected. Findings not consistent with infection, fracture, NV compromise. Disposition of Contusion of Right Elbow. Patient verbalized understanding of the plan and return to ED criteria and engaged in shared decision making. Medical Records Medical records reviewed: Yes I reviewed the patient's medical records. Imaging Data Radiologic Study: Attestation: I personally reviewed and interpreted this imaging study as follows: Imaging: X-Ray Radiologist's impression: EXAM: XR ELBOW RT COMPLETE CLINICAL HISTORY: R elbow pain. TECHNIQUE: 2D digital imaging was performed. COMPARISON: No exams were available for comparison FINDINGS: 3 views No evidence of acute fracture nor elbow obvious joint effusion. There is no swelling of the olecranon bursa. Radial head and neck appear intact. Capitellum appears unremarkable. Epicondyles unremarkable. No degenerative changes. IMPRESSION: No acute fracture evident. No obvious joint effusion. Quality:SDOH Health Related Social Needs: No Data to Display PFSH All Active Problems (Updated 07/21/24 @ 19:58 by ROSANA Cote) Contusion of right elbow (Acute) Generalized anxiety disorder (Chronic) Contraceptive surveillance (Chronic) Cigarette smoker (Chronic) Attention deficit hyperactivity disorder, combined type (Chronic) Verruca vulgaris (Chronic) Medical History (Updated 07/21/24 @ 19:58 by ROSANA Cote) Alcohol use disorder, moderate, in sustained remission Depressive disorder Febrile seizures Surgical History No significant past surgical history Family History Mother Diabetes Hypertension Depression Father Emphysema lung Sister Epilepsy Asthma Depression Hypertension Sister No problems noted. Sister No problems noted. Sister No problems noted. Brother No problems noted. Brother No problems noted. Daughter No problems noted. Maternal Grandfather No problems noted. Maternal Grandmother No problems noted. Paternal Grandfather No problems noted. Paternal Grandmother No problems noted. Social History Smoking/Tobacco Use Status: Current every day Tobacco Type: cigarettes Smoking packs per day: 1 Smoking cigarettes per day: 20.0 Years smoked: 18 Smoking pack- years: 18.00 Tobacco: How many years used: 15 Smokeless tobacco user: other Quit status: considering quitting Second Hand Exposure: Yes Smoking risk assessment performed?: Yes Alcohol Intake: former Drug use: Never Caregiver/Support person: No Household members: family Housing: house Communication Needs: None Do you need help understanding health information?: Never Pets and animals: Yes Pets and animals: dog(s) Sexually active: No Do you think of yourself as: straight/heterosexual Current gender identity: female What is your relationship status?: never How often do you talk on the phone with friends or family?: once per week How often do you get together with friends or relatives?: twice per week How often do you attend protestant or hinduism services?: decline to answer Do you belong to any clubs or organized social groups?: no Panel score (0-1 are the most socially isolated patients): 1 What type of physical activity do you participate in: walking Frequency: daily Special jacki needs: No Do you feel safe at home: Yes Do you feel safe in your relationship?: Yes History History 2 Para 1 Hx # Term Pregnancies Multiple births Hx # Pregnancies Ectopic pregnancies AB induced 1 Hx Number of Living Children 1 AB spontaneous PAWSS Have you Been Recently Intoxicated or Drunk Within the Last 30 days?: No Have you Ever Experienced Previous Episodes of Alcohol Withdrawal?: No Have you ever Experienced Withdrawal Seizures?: No Have you ever Experienced Delirium Tremens(DT)s?: No Have you ever undergone Alcohol Rehabilitation Treatment (i.e, inpt ot outpatient treatment programs)?: No Have you ever Experienced Blackouts?: No Have you ever Combined Alcohol with other Downers within the last 90 days?: No Have you ever Combined Alcohol with any other Substance of Abuse during the last 90 days?: No Positive Blood Alcohol level on Presentation? [PCS.BAL]: No Evidence of Increased Autonomic Activity (i.e. HR>120, tremor, sweating, agitation, nausea)?: No Result: 0
--- NOTE | 2024-07-21 19:06 | DI.RAD_ITS ---
Exam(s) XR ELBOW RT COMPLETE EXAM: XR ELBOW RT COMPLETE CLINICAL HISTORY: R elbow pain. TECHNIQUE: 2D digital imaging was performed. COMPARISON: No exams were available for comparison FINDINGS: 3 views No evidence of acute fracture nor elbow obvious joint effusion. There is no swelling of the olecrano n bursa. Radial head and neck appear intact. Capitellum appears unremarkable. Epicondyles unremarkable. No degenerative changes. IMPRESSION: No acute fracture evident. No obvious joint effusion. DATA REPOSITORY: RADIATION DOSE DELIVERED:
[2024-07-21] MEDS: Ketorolac 10 MG TAB PO (19:20)
[2024-07-21] MEDS: Acetaminophen 500 MG TAB 1000 MG PO (19:20)
--- NOTE | 2024-07-21 20:11 | DI.VRAD_ITS ---
PROCEDURE INFORMATION: Exam: XR Right Elbow Exam date and time: 07/21/2024 7:27 PM Age: 38 years old Clinical indication: Injury or trauma; Blunt trauma (contusions or hematomas); Right; Injury date: 07/21/24; Injury details: Fall, abrasion on lat elbow TECHNIQUE: Imaging protocol: Radiologic exam of the right elbow. Views: 3 or more views. COMPARISON: MR UPPER JOINT RT WO 01/15/2019 9:49 AM FINDINGS: Bones/joints: Normal. Soft tissues: Normal. IMPRESSION: No evidence for acute posttraumatic abnormality. Dictated and Authenticated by: Fouzia Story MD. Orderin Julio Guerrero MD
== END 2024-07-21 19:53 | disposition left against medical advice (07) ==
PROVIDERS: Emergency Provider Physician Assistant; PCP Nurse Practitioner Family
DX: S50.01XA Contusion of right elbow, initial encounter (principal); F17.210 Nicotine dependence, cigarettes, uncomplicated; W18.39XA Other fall on same level, initial encounter; Y93.89 Activity, other specified; Y92.018 Other place in single-family (private) house as the place of occurrence of the external cause
CPT/HCPCS: 81025; 99284; 73080

== ENCOUNTER 2024-10-03 08:59 | Emergency (ER) | payer MEDICAID, SELFPAY ==
--- NOTE | 2024-10-03 09:00 | RT.EKG_ITS ---
APPROVED REPORT Exam: Resting ECG Reason for Exam: epigastric pain Patient Location: E HR:95 bpm ECG Measurements Heart Rate 95 AXIS MS 138 P 78 QRSd 101 QRS 70 QT 355 T 18 QTc 448 Conclusion Sinus rhythm...normal P axis, V-rate 60- 99 Right atrial enlargement...P>0.25mV 2 lds or<-0.24mV aVR/aVL Probable LVH with secondary repol abnrm...multiple LVH criteria I have reviewed and interpreted ECG and agree with software generated interpretation.
[2024-10-03 09:02] VITALS: BP 215/112; PULSE 119; RESP 18; TEMP 36.7; O2SAT 100
--- NOTE | 2024-10-03 09:15 | DI.CT_ITS ---
Exam(s) CT THORAX ABD/PEL CTA EXAM: CT THORAX ABD/PEL CTA CLINICAL HISTORY: epigastric pain; ?aortic pathology vs esophageal. TECHNIQUE: Imaging Protocol: Axial CT angiography was performed with multi- slice acquisition and multi-planar and/or 3D reconstructions. CONTRAST MATERIAL: Intravenous: Omnipaque 350 Contrast volume:85 mL Oral: no COMPARISON: CT CT ABDOMEN PELVIS WO from 03/04/2023 FINDINGS: CHEST: Pulmonary Arteries: No evidence of filling defect to suggest pulmonary emboli. Tracheobronchial tree: Patent where visualized. Mediastinum and Pamela: No dominant adenopathy or fluid collection. Esophagus is unremarkable. Pulmonary parenchyma: No consolidation or dominant measurable mass. Mild emphysematous changes. Pleura: No effusion or pneumothorax. Heart: The heart is not dilated. No coronary artery calcifications are seen. Aorta: Ascending aorta is dilated to 3.4 cm. Descending aorta measures 2 cm. Bones: Normal. Tubes, Catheters, and Lines: None ABDOMEN AND PELVIS: Liver: Normal density. No measurable mass. Portal, Superior Mesenteric, and Splenic Veins: Unremarkable. Gallbladder and Biliary Tract: No radiodense calculus or dilation. Pancreas: Normal density, no abnormal calcifications or inflammatory process. Spleen: Normal. Adrenals: No masses seen. Kidneys: Normal size, contour and axis. No radiodense stones or obstructive uropathy. No masses seen. Bowel: No obstruction or bowel wall thickening. Appendix is unremarkable. Peritoneal Cavity: No ascites, collection or mesenteric inflammatory response. Lymph Nodes: Within normal limits. Bones: Developmental abnormality L4-5. Soft Tissues: Unremarkable. Vasculature: Normal diameter aorta and iliac arteries. The SMA and celiac axis well as renal arteries are normal in diameter. BIBI is patent. Minimal atherosclerotic changes of the iliac arteries. Normal diameter Bladder: Symmetric distention, no gross wall thickening. Reproductive Organs: Unremarkable as visualized. IMPRESSION: No acute abnormality in the chest, abdomen and pelvis. Dilated ascending aorta to 3.4 cm. RADIATION DOSE DELIVERED: 411.19mGy.cm Total DLP DATA REPOSITORY: All CT scans at this facility are submitted to the National Radiology Data Registry (NRDR) Dose Index Registry (DIR) with the [employer] (A[employer]). RADIATION OPTIMIZATION: All CT scans at this facility use at least one of these dose optimization techniques: automated exposure control; mA and/or kV adjustment per patient size (includes targeted exams where dose is matched to clinical indication); or iterative reconstruction.
[2024-10-03 09:23] VITALS: BP 215/112; PULSE 119; RESP 18; TEMP 36.7; O2SAT 100
[2024-10-03 09:30] LABS: Abs Immature Grans 0.04 10^3/uL (0.0-0.06); Absolute Basophil Count 0.05 10^3/uL (0.0-0.2); Absolute Lymphocyte Count 0.79 10^3/uL (1.2-3.4); Absolute Neutrophil Count 8.32 10^3/uL (1.2-6.7); Basophils % 0.5 %; HCT 39.6 % (36.0-46.0); HGB 13.2 g/dL (11.2-15.7); Immature Grans % 0.4 %; Lymphocytes % 8.2 %; MCH 28.3 pg (27.0-33.0); MCHC 33.3 % (32.0-36.0); MCV 85 fL (80-95); Monocytes % 4.2 %; Neutrophils % 86.7 %; Platelet Count 251 10^3/uL (130-400); RBC 4.67 10^6/uL (3.93-5.22); RDW 16.9 % (11.7-14.6); RDW-SD 52.1 fL
[2024-10-03] MEDS: Normal Saline 1,000 ML 1000 ML IV (09:40)
[2024-10-03] MEDS: ACETAMINOPHEN 1,000 MG/100 ML BAG 400 MG IVPB (09:41)
[2024-10-03] MEDS: Ondansetron 4 MG/2 ML VIAL IVP (09:41)
[2024-10-03] MEDS: Pantoprazole 40 MG VIAL IVP (09:41)
[2024-10-03] MEDS: Ketorolac 15 MG/ML VIAL IVP (09:41)
[2024-10-03] MEDS: methylPREDNISolone SUCC 125 MG VIAL IVP (10:02)
[2024-10-03 10:03] LABS: ALT 42 U/L (14-59); AST 44 U/L (15-37); Albumin 4.5 g/dL (3.4-5.0); Alkaline Phosphatase 119 U/L (46-116); Anion Gap 11.6 mmol/L (3-11); BUN 7 mg/dL (7-18); CO2 28.4 mmol/L (21.0-32.0); CREATININE 0.7 mg/dL (0.55-1.02); Calcium 9.8 mg/dL (8.5-10.1); Chloride 93 mmol/L (98-107); Estimated GFR 113.46 (mL/min/1.73m2); Glucose 177 mg/dL (74-106); Lipase 28 U/L (<78); Magnesium 1.9 mg/dL (1.8-2.4); NT-proBNP 440 pg/mL (<300); Potassium 3.6 mmol/L (3.5-5.1); Sodium 133 mmol/L (136-145); TSH (W/Ref FT4) 1.88 uIU/mL (0.36-3.74); Total Protein 8.6 g/dL (6.4-8.2); Troponin I 7 ng/L (<or=51)
[2024-10-03] MEDS: diphenhydrAMINE 50 MG/ML VIAL 25 MG IVP (10:03)
[2024-10-03 10:06] LABS: Bilirubin Small (Negative); Blood Trace-intact (Negative); Clarity Clear (Clear); Glucose Negative (Negative); Ketones >=160 mg/dL (Negative); Leukocyte Esterase Negative (Negative); Nitrite Negative (Negative); Specific Gravity >= 1.030 (1.005-1.025); Urobilinogen 0.2 mg/dL (Up to 0.2)
[2024-10-03] MEDS: Loratidine 10 MG TAB PO (10:06)
[2024-10-03 10:10] LABS: *AMPHETAMINES SCREEN URINE Negative (Negative); *BARBITURATES SCREEN URINE Negative (Negative); *BENZODIAZEPINES SCREEN URINE Negative (Negative); Cannabinoids THC Positive (Negative); Cocaine Screen,Urine Negative (Negative); METHADONE URINE SCREEN Negative (Negative); OPIATES URINE SCREEN Negative (Negative); Tricyclic Antidepressants Negative (Negative)
[2024-10-03 10:12] LABS: D-Dimer 487 ng/mlFEU (<500)
[2024-10-03 10:17] LABS: Bacteria Moderate HPF (Negative); Crystals Negative HPF (Negative); Epithelial Cells Moderate HPF (Negative); Mucus Moderate (Negative); RBC 0-2 HPF (0-2)
[2024-10-03 10:18] LABS: C & S Indicated? No; Casts Negative LPF (Negative)
[2024-10-03] MEDS: Normal Saline - Diluent 50 ML VIAL IJ (11:27)
[2024-10-03] MEDS: Omnipaque 350 MG/ML 500 ML BTL-Imaging package IJ (11:28)
--- NOTE | 2024-10-03 12:28 | W.ED.GENAD ---
Discharge Plan Disposition Patient Disposition: Home Condition: Stable Discharge Details Clinical Impression: Gastritis Primary Care Provider: Smitha Bush ED Provider: Cesar Kim Home Meds and New Rx's Prescriptions: Continued clotrimazole 1 % cream 1 applic topical BID Qty: 45 0RF Rx Instructions: Apply to affected areas twice a dayfor 2-4wks norelgestromin-ethin.estradiol [Xulane] 150-35 mcg/24 hr patch weekly 1 patch Transdermal QWEEK Qty: 9 3RF Discharge Instructions Instructions: Gastritis ED Additional Instructions: You were seen in the emergency department for epigastric pain and dry heaving, you may have peptic ulcer disease or other esophageal or gastric pathology. Please attempt to reduce ibuprofen use as well as acidic foods, take [id number] Pepcid once or twice per day for 2 to 3 weeks and see if you feel better, this would indicate you likely have ulcer pathology, you could seek a referral to the general surgery practice for an upper endoscopy as we discussed. Incidentally your aorta is mildly enlarged but is still within normal limits, this should be monitored at least once in the next 5 years to make sure it is not enlarging. Please return to the emergency department for any increasing chest pain shortness of breath or any other emergent concerns. Referrals: Smitha Bush, NOE [Primary Care Provider, Medicine] Discharge Data Discharge Date/Time-TO BE ENTERED AT DEPARTURE: 10/03/24 13:09 HPI General Date/Time Provider Initiated Documentation: 10/03/24 09:00. HPI Narrative: 38 year-old female presents to ED today by POV/ambulating with a chief complaint of abdominal pain- upper quadrants both sides with onset 3 days ago. Patient feels some SOB as well. Quality described as crampy upper abdominal pain, no radiation to active vomiting- but endorses dry heaves, black/tarry stools, fever, crushing chest pain, cough. Severity is described as moderate to severe. Palliating factors include nothing specific attempted. Provoking factors include nothing specific. Events leading up to the incident/Associated Symptoms: Patient has history of heavy drinking, and smoking. Patient not anticoagulated. Related Data Home Medications ?Medication ?Instructions ?Recorded ?Confirmed Xulane 150 mcg-35 mcg/24 hr 1 patch transdermal QWEEK #9 ea 09/20/23 10/03/24 transdermal patch (norelgestromin-ethin.estradiol) clotrimazole 1 % topical cream 1 applic topical BID #45 grams 06/26/24 10/03/24 Previous Rx's ?Medication ?Instructions ?Recorded Xulane 150 mcg-35 mcg/24 hr 1 patch transdermal QWEEK #9 ea 09/20/23 transdermal patch (norelgestromin-ethin.estradiol) clotrimazole 1 % topical cream 1 applic topical BID #45 grams 06/26/24 Allergies Allergy/AdvReac Type Severity Reaction Status Date / Time Penicillins Allergy Unknown Skin Rash Verified 10/03/24 09:07 amoxicillin (Amoxicillin) Allergy Skin Rash Verified 10/03/24 09:07 Iodinated Contrast Media Allergy Hives Verified 08/09/24 12:31 (Iodinated Contrast- Oral and IV Dye) benzonatate AdvReac Intermediate Nausea and Verified 10/03/24 09:07 vomiting General Stated Complaint: Abd Prob LAYNE: 3 Review of Systems All systems reviewed & are unremarkable except as noted in HPI and below Exam Narrative Exam Narrative: GENERAL APPEARANCE: Well-nourished, non-toxic, awake and alert, atraumatic, no acute distress. SKIN: Warm, pink, dry, intact, without rashes/lesions/ulcerations. HEAD: Normocephalic, atraumatic, normal hair distribution for gender/age. EYES: Normal conjunctiva, no exudates on lids/lashes. ENT: Nares patent, no circumoral cyanosis, no facial swelling NECK: Supple, trachea midline, painless cervical ROM. LUNGS/CHEST: Lungs CTA bilaterally- no rhonchi, mild expiratory wheezes, no crackles, non-labored respirations, normal A/P diameter, symmetrical expansion, no chest wall deformity HEART (CV/PV): Regular rate and rhythm without murmur, no peripheral edema, no JVD. ABDOMEN: Soft, non-distended, no guarding, epigastric tenderness, +Sánchez's. MSK: Normal ROM, no swelling/deformity to bilateral UEs or LEs, moving all extremities without weakness, no cyanosis, spine midline without tenderness, normal curvature. NEURO: Mental Status AAOx4 - alert to person, place, time, events No facial droop, no forehead involvement. Motor: No focal weakness - strength 5/5 in bilateral UEs and LEs, proximal and distal, symmetric. Sensory: sensation intact to light touch globally. Gait normal: patient ambulated without ataxia into ED room. PSYCH: euthymic, cooperative, pleasant, appropriate speech Course Vital Signs Vital signs: Vital Signs Temperature 36.7 C 10/03/24 09:02 Pulse 119 H 10/03/24 09:02 Respiratory Rate 18 10/03/24 09:02 Blood Pressure 215/112 H 10/03/24 09:02 Pulse Oximetry 100 10/03/24 09:02 Temperature 36.7 C 10/03/24 09:23 Temperature Source Oral 10/03/24 09:23 Pulse 119 H 10/03/24 09:23 Respiratory Rate 18 10/03/24 09:23 Blood Pressure 215/112 H 10/03/24 09:23 Pulse Oximetry 100 10/03/24 09:23 Oxygen Delivery Method Room Air 10/03/24 09:23 Oxygen Flow Rate 0 10/03/24 09:23 Lab/Test Results Lab/Test Results: Laboratory Tests Range/Units 10/03/24 10/03/24 09:15 09:40 WBC (4.4-10.8) 10^3/uL 9.60 RBC (3.93-5.22) 10^6/uL 4.67 Hgb (11.2-15.7) g/dL 13.2 Hct (36.0-46.0) % 39.6 MCV (80-95) fL 85 MCH (27.0-33.0) pg 28.3 MCHC (32.0-36.0) % 33.3 RDW (11.7-14.6) % 16.9 H Plt Count (130-400) 10^3/uL 251 MPV (8.0-11.0) fL 9.0 Immature Gran % % 0.4 Neutrophils % % 86.7 Lymphocytes % % 8.2 Monocytes % % 4.2 Eosinophils % % 0.0 Basophils % % 0.5 Nucleated RBC % (0.0-0.3) % 0.0 Absolute Neutrophils (1.2-6.7) 10^3/uL 8.32 H Absolute Lymphocytes (1.2-3.4) 10^3/uL 0.79 L Absolute Monocytes (0.1-0.8) 10^3/uL 0.40 Absolute Eosinophils (0.0-0.7) 10^3/uL 0.00 Absolute Basophils (0.0-0.2) 10^3/uL 0.05 D-Dimer (<500) ng/mlFEU 487 VBG Lactate (<or=2.0) mmol/L 2.0 Sodium (136-145) mmol/L 133 L Potassium (3.5-5.1) mmol/L 3.6 Chloride (98-107) mmol/L 93 L Carbon Dioxide (21.0-32.0) mmol/L 28.4 Anion Gap (3-11) mmol/L 11.6 H BUN (7-18) mg/dL 7 Creatinine (0.55-1.02) mg/dL 0.7 Est GFR (CKD-EPI 2020) (mL/min/1.73m2) 113.46 Glucose (74-106) mg/dL 177 H Calcium (8.5-10.1) mg/dL 9.8 Magnesium (1.8-2.4) mg/dL 1.9 Total Bilirubin (0.2-1.0) mg/dL 1.0 AST (15-37) U/L 44 H ALT (14-59) U/L 42 Alkaline Phosphatase (46-116) U/L 119 H Troponin I (<or=51) ng/L 7 NT-Pro-B Natriuret Pep (<300) pg/mL 440 H Total Protein (6.4-8.2) g/dL 8.6 H Albumin (3.4-5.0) g/dL 4.5 Lipase (<78) U/L 28 TSH (0.36-3.74) uIU/mL 1.88 Urine Color (Yellow) April Urine Clarity (Clear) Clear Urine pH (5-8) 6.0 Ur Specific Lykens (1.005-1.025) >= 1.030 H Urine Protein (Neg-Trace) mg/dL >=300 H Urine Ketones (Negative) mg/dL >=160 H Urine Blood (Negative) Trace-intact H Urine Nitrite (Negative) Negative Urine Bilirubin (Negative) Small H Urine Urobilinogen (Up to 0.2) mg/dL 0.2 Ur Leukocyte Esterase (Negative) Negative Urine RBC (0-2) HPF 0-2 Urine WBC (0-5) HPF 3-5 Ur Epithelial Cells (Negative) HPF Moderate Urine Crystals (Negative) HPF Negative Urine Bacteria (Negative) HPF Moderate Urine Casts (Negative) LPF Negative Urine Mucus (Negative) Moderate Ur Culture Indicated? No Urine Glucose (Negative) mg/dL Negative Urine Opiates Screen (Negative) Negative Urine Methadone Screen (Negative) Negative Ur Barbiturates Screen (Negative) Negative Ur Tricyclics Screen (Negative) Negative Ur Amphetamines Screen (Negative) Negative U Benzodiazepines Scrn (Negative) Negative Urine Cocaine Screen (Negative) Negative Ur THC Screen (Negative) Positive A POC- Test(urine) Negative Medical Decision Making This dictation utilizes [id number] dictation software and may contain unedited grammatical errors. 38 year-old female presents to ED today by POV/ambulating with a chief complaint of abdominal pain- upper quadrants both sides with onset 3 days ago. Patient feels some SOB as well. Quality described as crampy upper abdominal pain, no radiation to active vomiting- but endorses dry heaves, black/tarry stools, fever, crushing chest pain, cough. Severity is described as moderate to severe. Palliating factors include nothing specific attempted. Provoking factors include nothing specific. Events leading up to the incident/Associated Symptoms: Patient has history of heavy drinking, and smoking. Patients' medical history: Alcohol use disorder, anxiety, tobacco use. Family and social history: Active heavy alcohol use, heavy smoker, denies other illicit substance use. Pertinent exam findings / vital signs include extremely hypertensive on arrival has pain throughout the centralized chest and upper abdomen, tachycardic with severe epigastric tenderness, afebrile. Differential / pathologies of concern include aortic dissection, esophageal perforation, Mayelin-Espinosa tear, gastritis or peptic ulcer disease, ACS, less likely PE. Diagnostic studies of: - CBC, CMP, D-dimer, troponin, BNP, lipase, TSH, UA, UDS, lactate, EKG, magnesium, CTA thorax abdomen pelvis. - CBC shows no leukocytosis, no anemia - D-dimer is 487 - Lactate 2.0 do not suspect sepsis - CMP shows no actionable abnormality, mild hyponatremia, no hepatitis - Magnesium within normal limits - Troponin negative -Lipase within normal limits - BNP is mildly elevated, nonspecific - TSH within normal limits - UA is showing severe proteinuria and ketonuria likely in the setting of chronic alcohol use - UDS shows positive for THC - CTA shows mildly dilated ascending aorta 3.64 cm and no other acute abnormalities - EKG without ischemic changes Interventions of: - 40 mg IVP Protonix, 15 mg IVP ketorolac, 4 mg IVP Zofran, 1 g IVP APAP, premedicated for CT due to contrast allergy with Solu-Medrol and Benadryl and loratadine, 1 L IVF NS - significant improvement with these medicines - vitals improved. ED Course/Assessment/Plan: 38-year-old female with significant alcohol use presents with central chest pain and upper abdominal pain-initially was concern for possible esophageal perforation versus aortic dissection with the patient's highly abnormal vitals though these normalized after treatment medications, workup is acutely negative for any esophageal perforation, aortic aneurysm or dissection, some mild dilatation of ascending aortic aneurysm and I counseled the patient to seek regular follow-up for this, as no signs of infection, improvement with treatment for gastritis indicates she likely has an element of peptic ulcer disease or erosive esophagitis from her long-term alcohol use, counseled on the need for possible EGD in the outpatient setting, I counseled the patient to trial Pepcid twice daily for 2 to 3 weeks while arranging follow-up for trial of relief. Strict return criteria for any severe increase in symptoms especially with chest pain, hematemesis or any other emergent concern. Findings not consistent with Boerhaave syndrome, Mayelin-Espinosa tear, ACS, aortic dissection, pneumonia. Disposition of Gastritis. Patient verbalized understanding of the plan and return to ED criteria and engaged in shared decision making. Medical Records Medical records reviewed: Yes I reviewed the patient's medical records. Imaging Data Radiologic Study: Attestation: I personally reviewed and interpreted this imaging study as follows: Imaging: CT Scan Radiologist's impression: EXAM: CT THORAX ABD/PEL CTA CLINICAL HISTORY: epigastric pain; ?aortic pathology vs esophageal. TECHNIQUE: Imaging Protocol: Axial CT angiography was performed with multi-slice acquisition and multi-planar and/or 3D reconstructions. CONTRAST MATERIAL: Intravenous: Omnipaque 350 Contrast volume:85 mL Oral: no COMPARISON: CT CT ABDOMEN PELVIS WO from 03/04/2023 FINDINGS: CHEST: Pulmonary Arteries: No evidence of filling defect to suggest pulmonary emboli. Tracheobronchial tree: Patent where visualized. Mediastinum and Pamela: No dominant adenopathy or fluid collection. Esophagus is unremarkable. Pulmonary parenchyma: No consolidation or dominant measurable mass. Mild emphysematous changes. Pleura: No effusion or pneumothorax. Heart: The heart is not dilated. No coronary artery calcifications are seen. Aorta: Ascending aorta is dilated to 3.4 cm. Descending aorta measures 2 cm. Bones: Normal. Tubes, Catheters, and Lines: None ABDOMEN AND PELVIS: Liver: Normal density. No measurable mass. Portal, Superior Mesenteric, and Splenic Veins: Unremarkable. Gallbladder and Biliary Tract: No radiodense calculus or dilation. Pancreas: Normal density, no abnormal calcifications or inflammatory process. Spleen: Normal. Adrenals: No masses seen. Kidneys: Normal size, contour and axis. No radiodense stones or obstructive uropathy. No masses seen. Bowel: No obstruction or bowel wall thickening. Appendix is unremarkable. Peritoneal Cavity: No ascites, collection or mesenteric inflammatory response. Lymph Nodes: Within normal limits. Bones: Developmental abnormality L4-5. Soft Tissues: Unremarkable. Vasculature: Normal diameter aorta and iliac arteries. The SMA and celiac axis well as renal arteries are normal in diameter. BIBI is patent. Minimal atherosclerotic changes of the iliac arteries. Normal diameter Bladder: Symmetric distention, no gross wall thickening. Reproductive Organs: Unremarkable as visualized. IMPRESSION: No acute abnormality in the chest, abdomen and pelvis. Dilated ascending aorta to 3.4 cm. Lab Data Lab results reviewed: Yes I reviewed the patient's lab results. Labs: Laboratory Tests Range/Units 10/03/24 10/03/24 09:15 09:40 WBC (4.4-10.8) 10^3/uL 9.60 RBC (3.93-5.22) 10^6/uL 4.67 Hgb (11.2-15.7) g/dL 13.2 Hct (36.0-46.0) % 39.6 MCV (80-95) fL 85 MCH (27.0-33.0) pg 28.3 MCHC (32.0-36.0) % 33.3 RDW (11.7-14.6) % 16.9 H Plt Count (130-400) 10^3/uL 251 MPV (8.0-11.0) fL 9.0 Immature Gran % % 0.4 Neutrophils % % 86.7 Lymphocytes % % 8.2 Monocytes % % 4.2 Eosinophils % % 0.0 Basophils % % 0.5 Nucleated RBC % (0.0-0.3) % 0.0 Absolute Neutrophils (1.2-6.7) 10^3/uL 8.32 H Absolute Lymphocytes (1.2-3.4) 10^3/uL 0.79 L Absolute Monocytes (0.1-0.8) 10^3/uL 0.40 Absolute Eosinophils (0.0-0.7) 10^3/uL 0.00 Absolute Basophils (0.0-0.2) 10^3/uL 0.05 D-Dimer (<500) ng/mlFEU 487 VBG Lactate (<or=2.0) mmol/L 2.0 Sodium (136-145) mmol/L 133 L Potassium (3.5-5.1) mmol/L 3.6 Chloride (98-107) mmol/L 93 L Carbon Dioxide (21.0-32.0) mmol/L 28.4 Anion Gap (3-11) mmol/L 11.6 H BUN (7-18) mg/dL 7 Creatinine (0.55-1.02) mg/dL 0.7 Est GFR (CKD-EPI 2020) (mL/min/1.73m2) 113.46 Glucose (74-106) mg/dL 177 H Calcium (8.5-10.1) mg/dL 9.8 Magnesium (1.8-2.4) mg/dL 1.9 Total Bilirubin (0.2-1.0) mg/dL 1.0 AST (15-37) U/L 44 H ALT (14-59) U/L 42 Alkaline Phosphatase (46-116) U/L 119 H Troponin I (<or=51) ng/L 7 NT-Pro-B Natriuret Pep (<300) pg/mL 440 H Total Protein (6.4-8.2) g/dL 8.6 H Albumin (3.4-5.0) g/dL 4.5 Lipase (<78) U/L 28 TSH (0.36-3.74) uIU/mL 1.88 Urine Color (Yellow) April Urine Clarity (Clear) Clear Urine pH (5-8) 6.0 Ur Specific Lykens (1.005-1.025) >= 1.030 H Urine Protein (Neg-Trace) mg/dL >=300 H Urine Ketones (Negative) mg/dL >=160 H Urine Blood (Negative) Trace-intact H Urine Nitrite (Negative) Negative Urine Bilirubin (Negative) Small H Urine Urobilinogen (Up to 0.2) mg/dL 0.2 Ur Leukocyte Esterase (Negative) Negative Urine RBC (0-2) HPF 0-2 Urine WBC (0-5) HPF 3-5 Ur Epithelial Cells (Negative) HPF Moderate Urine Crystals (Negative) HPF Negative Urine Bacteria (Negative) HPF Moderate Urine Casts (Negative) LPF Negative Urine Mucus (Negative) Moderate Ur Culture Indicated? No Urine Glucose (Negative) mg/dL Negative Urine Opiates Screen (Negative) Negative Urine Methadone Screen (Negative) Negative Ur Barbiturates Screen (Negative) Negative Ur Tricyclics Screen (Negative) Negative Ur Amphetamines Screen (Negative) Negative U Benzodiazepines Scrn (Negative) Negative Urine Cocaine Screen (Negative) Negative Ur THC Screen (Negative) Positive A PFSH All Active Problems (Updated 10/03/24 @ 12:47 by ROSANA Cote) Gastritis (Acute) Generalized anxiety disorder (Chronic) Contraceptive surveillance (Chronic) Cigarette smoker (Chronic) Attention deficit hyperactivity disorder, combined type (Chronic) Verruca vulgaris (Chronic) Medical History Alcohol use disorder, moderate, in sustained remission Depressive disorder Febrile seizures Surgical History No significant past surgical history Family History Mother Diabetes Hypertension Depression Father Emphysema lung Sister Epilepsy Asthma Depression Hypertension Sister No problems noted. Sister No problems noted. Sister No problems noted. Brother No problems noted. Brother No problems noted. Daughter No problems noted. Maternal Grandfather No problems noted. Maternal Grandmother No problems noted. Paternal Grandfather No problems noted. Paternal Grandmother No problems noted. Social History Smoking/Tobacco Use Status: Current every day Tobacco Type: cigarettes Smoking packs per day: 1 Smoking cigarettes per day: 20.0 Years smoked: 18 Smoking pack-years: 18.00 Tobacco: How many years used: 15 Smokeless tobacco user: other Quit status: considering quitting Second Hand Exposure: Yes Smoking risk assessment performed?: Yes Alcohol Intake: current Alcohol Intake frequency: a few times a week Drug use: Never Caregiver/Support person: No Household members: family Housing: house Communication Needs: None Do you need help understanding health information?: Never Pets and animals: Yes Pets and animals: dog(s) Sexually active: No Do you think of yourself as: straight/heterosexual Current gender identity: female What is your relationship status?: never How often do you talk on the phone with friends or family?: once per week How often do you get together with friends or relatives?: twice per week How often do you attend evangelical or oriental orthodox services?: decline to answer Do you belong to any clubs or organized social groups?: no Panel score (0-1 are the most socially isolated patients): 1 What type of physical activity do you participate in: walking Frequency: daily Special jacki needs: No Do you feel safe at home: Yes Do you feel safe in your relationship?: Yes History History 2 Para 1 Hx # Term Pregnancies Multiple births Hx # Pregnancies Ectopic pregnancies AB induced 1 Hx Number of Living Children 1 AB spontaneous PAWSS Have you Been Recently Intoxicated or Drunk Within the Last 30 days?: No Have you Ever Experienced Previous Episodes of Alcohol Withdrawal?: No Have you ever Experienced Withdrawal Seizures?: No Have you ever Experienced Delirium Tremens(DT)s?: No Have you ever undergone Alcohol Rehabilitation Treatment (i.e, inpt ot outpatient treatment programs)?: No Have you ever Experienced Blackouts?: No Have you ever Combined Alcohol with other Downers within the last 90 days?: No Have you ever Combined Alcohol with any other Substance of Abuse during the last 90 days?: No Result: 0
[2024-10-03 13:03] VITALS: BP 138/84; PULSE 68; RESP 18; O2SAT 99
== END 2024-10-03 13:09 | disposition home or self-care (01) ==
PROVIDERS: Emergency Provider Physician Assistant; PCP Nurse Practitioner Family
DX: K29.70 Gastritis, unspecified, without bleeding (principal); R10.11 Right upper quadrant pain; R19.8 Other specified symptoms and signs involving the digestive system and abdomen; R10.12 Left upper quadrant pain
CPT/HCPCS: 99284; 99285; 96374; 96375; 81025; 36415; 71275; 80053; 80307; 83690; 93005; 74174; 81003; 81015; 83605; 83735; 83880; 84443; 84484; 85025; 85379; 93010; J0131; J1200; J1885; J2405; J2470; J2919

== ENCOUNTER 2025-02-18 03:23 | Emergency (ER) | payer MEDICAID, SELFPAY ==
[2025-02-18 03:28] VITALS: BP 200/168; PULSE 160; RESP 22; O2SAT 100
--- NOTE | 2025-02-18 03:30 | RT.EKG_ITS ---
APPROVED REPORT Exam: Resting ECG Reason for Exam: SOB Patient Location: E HR:108 bpm ECG Measurements Heart Rate 108 AXIS VA 144 P 60 QRSd 101 QRS 48 QT 343 T -12 QTc 460 Conclusion Sinus tachycardia...rate> 99 Right atrial enlargement...P>0.25mV 2 lds or<-0.24mV aVR/aVL LVH with secondary repolarization abnormality...multi-LVH criteria, abnrm ST-T Physician: No stemii
[2025-02-18 03:33] VITALS: BP 200/109; PULSE 139; RESP 21; O2SAT 100
[2025-02-18] MEDS: Ondansetron 4 MG/2 ML VIAL IVP (03:47)
[2025-02-18] MEDS: Lactated Ringers 1,000 ML 1000 ML IV (03:50)
[2025-02-18] MEDS: Pantoprazole 40 MG VIAL IVP (03:51)
[2025-02-18] MEDS: Mylanta Suspension 30 ML CUP PO (03:51)
[2025-02-18] MEDS: Sucralfate 1 GM TAB PO (03:51)
[2025-02-18 03:53] LABS: Glucose Negative (Negative)
[2025-02-18 03:55] LABS: Abs Immature Grans 0.02 10^3/uL (0.0-0.06); HCT 43.0 % (36.0-46.0); HGB 13.8 g/dL (11.2-15.7); Immature Grans % 0.3 %; MCH 27.3 pg (27.0-33.0); MCHC 32.1 % (32.0-36.0); MCV 85 fL (80-95); MPV 9.1 fL (8.0-11.0); Platelet Count 236 10^3/uL (130-400); RBC 5.05 10^6/uL (3.93-5.22); RDW 16.4 % (11.7-14.6); RDW-SD 51.6 fL; WBC 7.13 10^3/uL (4.4-10.8)
--- NOTE | 2025-02-18 03:59 | W.ED.GENAD ---
Discharge Plan Disposition Patient Disposition: Home Condition: Good Discharge Details Clinical Impression: Stomach discomfort Primary Care Provider: Smitha Bush ED Provider: Cesar Gorman Home Meds and New Rx's Prescriptions: New sucralfate [Carafate] 1 gram tablet 1 g PO BID Qty: 60 0RF pantoprazole [Protonix] 40 mg tablet,delayed release (DR/EC) 40 mg PO DAILY Qty: 60 0RF No Action clotrimazole 1 % cream 1 applic topical BID Qty: 45 0RF Rx Instructions: Apply to affected areas twice a dayfor 2-4wks Lice Killing (permethrin) 1 % liquid 60 ml topical ONCE Qty: 59 0RF Rx Instructions: may repeat treatment 7 days after first treatment if live lice remain norelgestromin-ethin.estradiol [Xulane] 150-35 mcg/24 hr patch weekly 1 patch Transdermal QWEEK Qty: 9 3RF Discharge Instructions Instructions: Abdominal pain Additional Instructions: At this time your laboratory workup has returned reassuring. As we discussed together I am concerned that some of your symptoms may be secondary to a stomach ulcer. Please continue to take your Pepcid at home, we will also start 2 new medications of Protonix and Carafate. These have been sent to your pharmacy. Please take them as prescribed. We have placed a referral with our surgical team for outpatient follow-up for potential EGD. They will contact you for an appointment time. In the meantime please avoid any alcohol, spicy foods, tomato-based products or citrus based products. Stick with a mild and bland diet. If you notice any worsening of your symptoms, or any new symptoms such as vomiting, diarrhea, fever, chills, shortness of breath, chest pain, numbness, weakness, or fainting , please return immediately to the emergency department for reevaluation. Please follow up with your primary care provider as soon as possible for reassessment and reevaluation. As always, it was a pleasure participating in your medical care today. Stand Alone Forms: Portal Information Referrals: Smitha Bush NP [Primary Care Provider, Medicine] Discharge Data Discharge Date/Time-TO BE ENTERED AT DEPARTURE: 02/18/25 06:16 HPI General Date/Time Provider Initiated Documentation: 02/18/25 03:25. HPI Narrative: 39-year-old female with a past medical history of previous alcohol use, depression, ADHD, febrile seizures as a child, presents today for evaluation of abdominal pain. Patient states that she ate some spicy sausages 24 hours ago on Monday. Since then she has been having more nausea, and diarrhea. No blood in her stools. She is taking home Pepcid. She also took Tylenol without any improvement. She took this few hours prior to arrival. She describes a burning achy pressure-like sensation in her epigastrium and upper abdomen. She denies any tearing or ripping sensation. She denies any significant chest pain. No other complaints at this time. Symptoms do feel similar to her previous episodes of diagnosed gastric irritation. Related Data Home Medications Medication Instructions Recorded Confirmed Xulane 150 mcg-35 mcg/24 hr 1 patch transdermal QWEEK #9 ea 09/20/23 02/18/25 transdermal patch (norelgestromin-ethin.estradiol) clotrimazole 1 % topical cream 1 applic topical BID #45 grams 06/26/24 02/18/25 Held on 02/18/25. Instructions: Prescription Finished permethrin 1 % topical liquid 60 ml topical ONCE #59 mL 02/13/25 02/18/25 (Lice Killing (permethrin)) Held on 02/18/25. Instructions: Prescription Finished pantoprazole 40 mg tablet,delayed 40 mg PO DAILY #60 tabs 02/18/25 release (Protonix) sucralfate 1 gram tablet (Carafate) 1 g PO BID #60 tabs 02/18/25 Previous Rx's Medication Instructions Recorded Xulane 150 mcg-35 mcg/24 hr 1 patch transdermal QWEEK #9 ea 09/20/23 transdermal patch (norelgestromin-ethin.estradiol) clotrimazole 1 % topical cream 1 applic topical BID #45 grams 06/26/24 Held on 02/18/25. Instructions: Prescription Finished permethrin 1 % topical liquid 60 ml topical ONCE #59 mL 02/13/25 (Lice Killing (permethrin)) Held on 02/18/25. Instructions: Prescription Finished pantoprazole 40 mg tablet,delayed 40 mg PO DAILY #60 tabs 02/18/25 release (Protonix) sucralfate 1 gram tablet (Carafate) 1 g PO BID #60 tabs 02/18/25 Allergies Allergy/AdvReac Type Severity Reaction Status Date / Time Penicillins Allergy Unknown Skin Rash Verified 02/18/25 03:25 amoxicillin (Amoxicillin) Allergy Skin Rash Verified 02/18/25 03:25 Iodinated Contrast Media Allergy Hives Verified 02/18/25 03:25 (Iodinated Contrast- Oral and IV Dye) benzonatate AdvReac Intermediate Nausea and Verified 02/18/25 03:25 vomiting General Stated Complaint: Abd Prob LAYNE: 3 Exam Narrative Exam Narrative: 1.Const: Well-nourished, Well-developed, appearing stated age 2.Eyes: PERRL, no conjunctival injection, and symmetrical lids. 3.ENT: Atraumatic external nose and ears. Notably dry MM. Neck: Symmetric, trachea midline, No thyromegaly. 4.CVS: +S1/S2, Peripheral pulses 2+ and equal in all extremities. Brisk capillary refill in all extremities. 5.RESP: Unlabored respiratory effort. Clear to auscultation bilaterally. No wheezes rales or rhonchi 6.GI: Soft, nondistended, no guarding or rebound. Mild epigastric discomfort on palpation. No pain at McBurney's:, Negative Sánchez sign 7.MSK: Normocephalic/Atraumatic, Extremities w/o deformity or ttp No cyanosis or clubbing, Normal movement of all extremities 8.Skin: Warm, Dry. No rashes or lesions. 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 Sensation grossly intact, no focal neurologic deficits. 10.Psych: (AAO) x3. Appropriate mood and affect Course Vital Signs Vital signs: Vital Signs Pulse 160 H 02/18/25 03:28 Respiratory Rate 22 02/18/25 03:28 Blood Pressure 200/168 H 02/18/25 03:28 Pulse Oximetry 100 02/18/25 03:28 Pulse 139 H 02/18/25 03:33 Respiratory Rate 21 02/18/25 03:33 Blood Pressure 200/109 H 02/18/25 03:33 Blood Pressure Position Sitting 02/18/25 03:33 Pulse Oximetry 100 02/18/25 03:33 Oxygen Delivery Method Room Air 02/18/25 03:33 Oxygen Flow Rate 0 02/18/25 03:28 Pain Level 9 02/18/25 03:33 Lab/Test Results Lab/Test Results: Laboratory Tests Range/Units 02/18/25 02/18/25 03:30 03:48 WBC (4.4-10.8) 10^3/uL 7.13 RBC (3.93-5.22) 10^6/uL 5.05 Hgb (11.2-15.7) g/dL 13.8 Hct (36.0-46.0) % 43.0 MCV (80-95) fL 85 MCH (27.0-33.0) pg 27.3 MCHC (32.0-36.0) % 32.1 RDW (11.7-14.6) % 16.4 H Plt Count (130-400) 10^3/uL 236 MPV (8.0-11.0) fL 9.1 Immature Gran % % 0.3 Neutrophils % % 72.8 Lymphocytes % % 15.6 Monocytes % % 9.7 Eosinophils % % 0.6 Basophils % % 1.0 Nucleated RBC % (0.0-0.3) % 0.0 Absolute Neutrophils (1.2-6.7) 10^3/uL 5.20 Absolute Lymphocytes (1.2-3.4) 10^3/uL 1.11 L Absolute Monocytes (0.1-0.8) 10^3/uL 0.69 Absolute Eosinophils (0.0-0.7) 10^3/uL 0.04 Absolute Basophils (0.0-0.2) 10^3/uL 0.07 Urine Color (Yellow) Dark Yellow Urine Clarity (Clear) Cloudy Urine pH (5-8) 5.5 Ur Specific [place] (1.005-1.025) >= 1.030 H Urine Protein (Neg-Trace) mg/dL 100 H Urine Ketones (Negative) mg/dL 80 H Urine Blood (Negative) Negative Urine Nitrite (Negative) Negative Urine Bilirubin (Negative) Moderate H Urine Urobilinogen (Up to 0.2) mg/dL 0.2 Ur Leukocyte Esterase (Negative) Negative Urine Glucose (Negative) mg/dL Negative POC- Test(urine) Negative Medical Decision Making 39-year-old female with a past medical history of previous alcohol use, depression, ADHD, febrile seizures as a child, presents today for evaluation of abdominal pain. Patient states that she ate some spicy sausages 24 hours ago on Monday. Since then she has been having more nausea, and diarrhea. No blood in her stools. She is taking home Pepcid. She also took Tylenol without any improvement. She took this few hours prior to arrival. She describes a burning achy pressure-like sensation in her epigastrium and upper abdomen. She denies any tearing or ripping sensation. She denies any significant chest pain. No other complaints at this time. Symptoms do feel similar to her previous episodes of diagnosed gastric irritation. Exam demonstrates a well-appearing female, dry mucous membranes, tachycardic and moderately hypertensive. Differential is high for gastric ulcer, less likely pancreatitis or esophagitis. Will give GI cocktail, Protonix, will rehydrate, monitor closely and reassess. 6:24 AM Laboratory workup has returned unremarkable, on reassessment patient is feeling much better after medications. She feels well and is requesting discharge. Repeat exam shows no evidence of an acute surgical abdomen. Discussed risks and benefits of CT imaging, patient would like to hold off on any additional radiation exposure CT scans at this time. I do not see any current clinical indication for emergent CT scanning. Symptoms at this time appear consistent with likely gastric irritation or potential ulcer. Will give prescription for Carafate and Protonix for home use. Will place referral with surgery for endoscopy to evaluate for H. pylori and ulcers. Discussed dietary recommendations. I have extensively reviewed the treatment plan and discharge instructions with the patient and their family. I have addressed all patient concerns at this time. The patient and family was made aware of what symptoms to monitor for that would warrant a return to the emergency department. Discussed the plan with the patient and family, they demonstrate verbal understanding and agreement with our assessment and plan at this time. The documentation in this chart was dictated using [employer] dictation software. Please excuse any dictation errors. PFSH All Active Problems (Updated 02/18/25 @ 06:00 by Cesar Gorman DO) Stomach discomfort (Acute) Generalized anxiety disorder (Chronic) Contraceptive surveillance (Chronic) Cigarette smoker (Chronic) Attention deficit hyperactivity disorder, combined type (Chronic) Verruca vulgaris (Chronic) Medical History Alcohol use disorder, moderate, in sustained remission Depressive disorder Febrile seizures Surgical History No significant past surgical history Family History Mother Diabetes Hypertension Depression Father Emphysema lung Sister Epilepsy Asthma Depression Hypertension Sister No problems noted. Sister No problems noted. Sister No problems noted. Brother No problems noted. Brother No problems noted. Daughter No problems noted. Maternal Grandfather No problems noted. Maternal Grandmother No problems noted. Paternal Grandfather No problems noted. Paternal Grandmother No problems noted. Social History Smoking/Tobacco Use Status: Current every day Tobacco Type: cigarettes Smoking packs per day: 1 Smoking cigarettes per day: 20.0 Years smoked: 18 Smoking pack-years: 18.00 Tobacco: How many years used: 15 Smokeless tobacco user: other Quit status: considering quitting Second Hand Exposure: Yes Smoking risk assessment performed?: Yes Alcohol Intake: current Alcohol Intake frequency: a few times a week Drug use: Never Substance use type: does not use Caregiver/Support person: No Household members: family Housing: house Communication Needs: None Do you need help understanding health information?: Never Pets and animals: Yes Pets and animals: dog(s) Sexually active: No Do you think of yourself as: straight/heterosexual Current gender identity: female What is your relationship status?: never How often do you talk on the phone with friends or family?: once per week How often do you get together with friends or relatives?: twice per week How often do you attend zoroastrian or synagogue services?: decline to answer Do you belong to any clubs or organized social groups?: no Panel score (0-1 are the most socially isolated patients): 1 What type of physical activity do you participate in: walking Frequency: daily Special jacki needs: No Do you feel safe at home: Yes Do you feel safe in your relationship?: Yes History History 2 Para 1 Hx # Term Pregnancies Multiple births Hx # Pregnancies Ectopic pregnancies AB induced 1 Hx Number of Living Children 1 AB spontaneous PAWSS Have you Been Recently Intoxicated or Drunk Within the Last 30 days?: No Have you Ever Experienced Previous Episodes of Alcohol Withdrawal?: No Have you ever Experienced Withdrawal Seizures?: No Have you ever Experienced Delirium Tremens(DT)s?: No Have you ever undergone Alcohol Rehabilitation Treatment (i.e, inpt ot outpatient treatment programs)?: No Have you ever Experienced Blackouts?: No Have you ever Combined Alcohol with other Downers within the last 90 days?: No Have you ever Combined Alcohol with any other Substance of Abuse during the last 90 days?: No Positive Blood Alcohol level on Presentation? [PCS.BAL]: No Evidence of Increased Autonomic Activity (i.e. HR>120, tremor, sweating, agitation, nausea)?: No Result: 0
[2025-02-18 04:04] LABS: C & S Indicated? No; RBC Negative HPF (0-2); WBC 0-2 HPF (0-5)
[2025-02-18 04:24] LABS: ALT 41 U/L (14-59); AST 27 U/L (15-37); Albumin 4.1 g/dL (3.4-5.0); Alkaline Phosphatase 105 U/L (46-116); Anion Gap 18.0 mmol/L (3-11); BUN 5 mg/dL (7-18); Bilirubin, Total 0.9 mg/dL (0.2-1.0); CO2 21.0 mmol/L (21.0-32.0); Calcium 9.2 mg/dL (8.5-10.1); Chloride 92 mmol/L (98-107); Glucose 159 mg/dL (74-106); Lipase 32 U/L (<78); Potassium 3.5 mmol/L (3.5-5.1); Sodium 131 mmol/L (136-145); Total Protein 8.1 g/dL (6.4-8.2)
[2025-02-18] MEDS: Normal Saline 1,000 ML 1000 ML IV (04:57)
[2025-02-18] MEDS: Dicyclomine 20 MG TAB PO (04:58)
[2025-02-18] MEDS: Ketorolac 15 MG/ML VIAL IVP (04:58)
[2025-02-18 05:02] VITALS: BP 158/95; PULSE 68; RESP 16; O2SAT 99
[2025-02-18 06:11] VITALS: BP 134/85; PULSE 77; RESP 19; TEMP 36.8; O2SAT 99
== END 2025-02-18 06:16 | disposition home or self-care (01) ==
PROVIDERS: Emergency Provider Student in an Organized Health Care Education/Training Program; PCP Nurse Practitioner Family
DX: R10.13 Epigastric pain (principal)
CPT/HCPCS: 99283; 99284; 81025; 96374; 96375; 80053; 83690; 93005; 96361; 81003; 81015; 85025; 93010; J1885; J2405; J2470